=== PATIENT | female | born 1980 | race African-American/Black ===

== ENCOUNTER 2018-01-23 10:13 | Inpatient (IN) | payer OTHER ==
[2018-01-23 10:40] VITALS: BMI 30.1
[2018-01-23] MEDS ORDERED: FLU VACCINE QUAD 60 MCG/0.5 ML (MDV 18-19) IM ONE (11:19)
[2018-01-23] MEDS ORDERED: PNEUMOC 13-VAL CONJ-DIP CRM/PF 0.5 ML DISP.SYRIN IM ONE (11:32)
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
[2018-01-23] MEDS ORDERED: P-EPHED 60MG/TRIPROLIDI 2.5MG TABLET PO PRN (12:24)
[2018-01-23] MEDS ORDERED: MENTHOL/PHENOL 1 EACH UD MM PRN (12:24)
[2018-01-23] MEDS ORDERED: LOPERAMIDE HCL 2 MG CAPSULE PO PRN (12:24)
[2018-01-23] MEDS ORDERED: guaiFENesin/D-METHORPHAN HB 10 ML UNIT-DOSE CUPS PO PRN (12:24)
[2018-01-23] MEDS ORDERED: MAGNESIUM HYDROX 2400MG/30ML ORAL SUSPENSION 30 ML CUP PO PRN (12:24)
[2018-01-23] MEDS ORDERED: IBUPROFEN 400 MG TABLET (FP) PO PRN (12:24)
[2018-01-23] MEDS ORDERED: MAGNESIUM CITRATE 300 ML BOTTLE PO PRN (12:24)
[2018-01-23] MEDS ORDERED: MAG HYDROX/AL HYDROX/SIMETH 30 ML UNIT-DOSE CUP PO PRN (12:24)
[2018-01-23] MEDS ORDERED: METHADONE HCL 10 MG TABLET (FOR DETOX USE ONLY) PO ONE ×2 (12:45→23:00)
[2018-01-23] MEDS: diazePAM 5 MG TABLET PO PRN ×3 (13:31→22:45)
[2018-01-23] MEDS: NICOTINE 21 MG/24 HOURS TOPICAL PATCH TD SCH (13:33)
[2018-01-23] MEDS: CYCLOBENZAPRINE HCL 10 MG TABLET (FP) PO PRN ×2 (14:46→22:26)
[2018-01-23 18:04] LABS: URINE APPEARANCE CLEAR; URINE BILIRUBIN NEGATIVE (<2.0 mg/dL); URINE COLOR LTYELLOW; URINE GLUCOSE (UA) NEGATIVE (NEGATIVE); URINE KETONE NEGATIVE (NEGATIVE); URINE LEUK ESTERASE NEGATIVE (NEGATIVE); URINE NITRITE NEGATIVE (NEGATIVE); URINE PROTEIN NEGATIVE (NEGATIVE); URINE UROBILINOGEN NEGATIVE mg/dL (0.2-1.0)
--- NOTE | 2018-01-23 18:09 | EKG ---
Test Reason : Blood Pressure : / mmHG Vent. Rate : 071 BPM Atrial Rate : 071 BPM P-R Int : 156 ms QRS Dur : 080 ms QT Int : 384 ms P-R-T Axes : 057 045 036 degrees QTc Int : 417 ms NORMAL SINUS RHYTHM NORMAL ECG WHEN COMPARED WITH ECG OF 13-JUL-1999 04:43, NONSPECIFIC T WAVE ABNORMALITY NO LONGER EVIDENT IN ANTERIOR LEADS Confirmed by SAI CEJA MD ([id number]) on 01/23/2018 6:09:25 PM Referred By: Confirmed By:SAI CEJA MD
[2018-01-23] MEDS ORDERED: MELATONIN 5 MG TABLETS PO PRN (22:00)
[2018-01-23] MEDS: cloNIDine HCL 0.1 MG TABLET PO SCH (22:26)
[2018-01-23] MEDS: THIAMINE HCL 100 MG TABLET (FP) PO SCH (22:27)
[2018-01-23] MEDS: hydrOXYzine PAMOATE 25 MG CAPSULE (FP) PO PRN (22:27)
[2018-01-24] MEDS: ALBUTEROL SO4 8 GM HFA INHALER IH PRN ×2 (05:34→22:39)
[2018-01-24] MEDS: NICOTINE POLACRILEX 2 MG GUM BUC PRN ×2 (06:03→11:45)
[2018-01-24] MEDS ORDERED: METHADONE HCL 10 MG TABLET (FOR DETOX USE ONLY) PO ONE (10:00)
[2018-01-24] MEDS: cloNIDine HCL 0.1 MG TABLET PO SCH ×2 (10:02→22:37)
[2018-01-24] MEDS: diazePAM 5 MG TABLET PO PRN ×3 (10:03→22:38)
[2018-01-24] MEDS: PRENATAL VITAMINS W/ FOLIC ACID TABLET (FP) PO SCH (10:03)
[2018-01-24] MEDS: NICOTINE 21 MG/24 HOURS TOPICAL PATCH TD SCH (10:03)
[2018-01-24 10:38] LABS: HEMATOCRIT 35.9 % (32.4-45.2); HEMOGLOBIN 11.2 GM/dL (10.7-15.3); MCH 25.8 pg (25.7-33.7); MCHC 31.1 g/dl (32.0-36.0); MEAN CELL VOLUME 83.1 fl (80-96); PLATELET COUNT 318 K/MM3 (134-434); RBC 4.32 M/mm3 (3.60-5.2); RDW 17.2 % (11.6-15.6); WHITE BLOOD COUNT 3.8 K/mm3 (4.0-10.0)
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
[2018-01-24 11:18] LABS: ALBUMIN 3.6 g/dl (3.4-5.0); ALK PHOS 66 U/L (45-117); ANION GAP 8 MMOL/L (8-16); BILIRUBIN,TOTAL 0.2 mg/dL (0.2-1); BLOOD UREA NITROGEN 18 mg/dL (7-18); CHLORIDE 104 mmol/L (98-107); CO2 27 mmol/L (21-32); CREATININE 0.8 mg/dL (0.55-1.3); GLUCOSE,RANDOM 99 mg/dL (74-106); POTASSIUM 4.7 mmol/L (3.5-5.1); SGOT/AST 11 U/L (15-37); SGPT/ALT 18 U/L (13-61); SODIUM 139 mmol/L (136-145); TOT PROT 7.1 g/dl (6.4-8.2)
[2018-01-24] MEDS ORDERED: FLU VACCINE QUAD 60 MCG/0.5 ML (MDV 18-19) IM ONE (12:00)
[2018-01-24] MEDS ORDERED: PNEUMOCOCCAL 23 VACCINE 0.5 ML VIAL IM ONE (12:00)
[2018-01-24] MEDS: ACETAMINOPHEN 325 MG TABLET (FP) PO PRN (12:32)
--- NOTE | 2018-01-24 13:59 | PN ---
[facility] COWS - Scale Resting Pulse: 0= [place] 80 or Below Sweatin= Chills/Flushing Restless Observation: 1= Difficult to Sit Still Pupil Size: 1= Pupils >than Normal Bone or Joint Aches: 2= Severe Diffuse Aches Runny Nose/ Eye Tearin= Runny Nose/Eyes GI Upset > 30mins: 2= Nausea/Diarrhea Tremor Observation of Outstretched Hands: 2= Slight Tremor Visible Yawning Observation: 1= 1-2x During Session Anxiety or Irritability: 2=Irritable/Anxious Goose Flesh Skin: 0=Smooth Skin COWS Score: 14 S Progress Note (SOAP) Subjective: sweat joints pain trouble sleep at night Objective: 01/24/18 13:54 Vital Signs Temperature 99.3 F 01/24/18 13:15 Pulse Rate 82 01/24/18 13:15 Respiratory Rate 18 01/24/18 13:15 Blood Pressure 105/62 01/24/18 13:15 O2 Sat by Pulse Oximetry (%) Laboratory Last Values WBC 3.8 K/mm3 (4.0-10.0) L 01/24/18 06:00 RBC 4.32 M/mm3 (3.60-5.2) 01/24/18 06:00 Hgb 11.2 GM/dL (10.7-15.3) 01/24/18 06:00 Hct 35.9 % (32.4-45.2) 01/24/18 06:00 MCV 83.1 fl (80-96) 01/24/18 06:00 MCH 25.8 pg (25.7-33.7) 01/24/18 06:00 MCHC 31.1 g/dl (32.0-36.0) L 01/24/18 06:00 RDW 17.2 % (11.6-15.6) H 01/24/18 06:00 Plt Count 318 K/MM3 (134-434) 01/24/18 06:00 MPV 12.0 fl (7.5-11.1) H 01/24/18 06:00 Sodium 139 mmol/L (136-145) 01/24/18 06:00 Potassium 4.7 mmol/L (3.5-5.1) 01/24/18 06:00 Chloride 104 mmol/L (98-107) 01/24/18 06:00 Carbon Dioxide 27 mmol/L (21-32) 01/24/18 06:00 Anion Gap 8 MMOL/L (8-16) 01/24/18 06:00 BUN 18 mg/dL (7-18) 01/24/18 06:00 Creatinine 0.8 mg/dL (0.55-1.3) 01/24/18 06:00 Creat Clearance w eGFR > 60 (>60) 01/24/18 06:00 Random Glucose 99 mg/dL (74-106) 01/24/18 06:00 Calcium 10.0 mg/dL (8.5-10.1) 01/24/18 06:00 Total Bilirubin 0.2 mg/dL (0.2-1) 01/24/18 06:00 AST 11 U/L (15-37) L 01/24/18 06:00 ALT 18 U/L (13-61) 01/24/18 06:00 Alkaline Phosphatase 66 U/L (45-117) 01/24/18 06:00 Total Protein 7.1 g/dl (6.4-8.2) 01/24/18 06:00 Albumin 3.6 g/dl (3.4-5.0) 01/24/18 06:00 Urine Color Ltyellow 01/23/18 12:08 Urine Appearance Clear 01/23/18 12:08 Urine pH 6.0 (5.0-8.0) 01/23/18 12:08 Ur Specific [place] 1.021 (1.001-1.035) 01/23/18 12:08 Urine Protein Negative (NEGATIVE) 01/23/18 12:08 Urine Glucose (UA) Negative (NEGATIVE) 01/23/18 12:08 Urine Ketones Negative (NEGATIVE) 01/23/18 12:08 Urine Blood Negative (NEGATIVE) 01/23/18 12:08 Urine Nitrite Negative (NEGATIVE) 01/23/18 12:08 Urine Bilirubin Negative (<2.0 mg/dL) 01/23/18 12:08 Urine Urobilinogen Negative mg/dL (0.2-1.0) 01/23/18 12:08 Ur Leukocyte Esterase Negative (NEGATIVE) 01/23/18 12:08 RPR Titer Nonreactive (NONREACTIVE) 01/24/18 06:00 lab noted Assessment: 01/24/18 13:59 withdrawal sx Plan: continue detox
[2018-01-24] MEDS ORDERED: ALBUTEROL SO4 0.083% IH SOL 2.5 MG/3 ML VIAL.NEB. NEB PRN (14:26)
[2018-01-24] MEDS ORDERED: COLLOIDAL OATMEAL 1 BAR EACH TP PRN (14:26)
[2018-01-24] MEDS: hydrOXYzine PAMOATE 25 MG CAPSULE (FP) PO PRN (14:46)
[2018-01-24] MEDS: CYCLOBENZAPRINE HCL 10 MG TABLET (FP) PO PRN ×2 (17:40→22:38)
[2018-01-24] MEDS: ZOLPIDEM TARTRATE 10 MG TABLET (PARK CARE ONLY) PO PRN (22:37)
[2018-01-24] MEDS: BUDESONIDE/FORMETEROL FUMARATE 80/4.5 mcg INHALER IH SCH (22:38)
[2018-01-24] MEDS: THIAMINE HCL 100 MG TABLET (FP) PO SCH (22:38)
[2018-01-25] MEDS: diazePAM 5 MG TABLET PO PRN ×5 (02:52→22:12)
[2018-01-25] MEDS: ACETAMINOPHEN 325 MG TABLET (FP) PO PRN (05:25)
[2018-01-25] MEDS: NICOTINE POLACRILEX 2 MG GUM BUC PRN ×4 (07:08→22:30)
[2018-01-25] MEDS: CYCLOBENZAPRINE HCL 10 MG TABLET (FP) PO PRN ×2 (07:10→22:12)
[2018-01-25] MEDS: hydrOXYzine PAMOATE 25 MG CAPSULE (FP) PO PRN (07:11)
[2018-01-25] MEDS ORDERED: METHADONE HCL 5 MG TABLET (FOR DETOX USE ONLY) PO ONE (10:00)
[2018-01-25] MEDS: cloNIDine HCL 0.1 MG TABLET PO SCH ×2 (10:33→22:12)
[2018-01-25] MEDS: NICOTINE 21 MG/24 HOURS TOPICAL PATCH TD SCH (10:33)
[2018-01-25] MEDS: BUDESONIDE/FORMETEROL FUMARATE 80/4.5 mcg INHALER IH SCH ×2 (10:33→22:12)
[2018-01-25] MEDS: PRENATAL VITAMINS W/ FOLIC ACID TABLET (FP) PO SCH (10:33)
--- NOTE | 2018-01-25 17:16 | PN ---
[facility] Progress Note Note: Psychiatric nurse practitioner note: Pt. reports difficulty sleeping. She accepted ambien 10mg with minimal effect. Pt. educated on the properties, benefits, and side effects of trazodone. Pt. agreeable to accepting trazodone 50mg. Will order trazodone 50mg for insomina. Verbal consent given.
--- NOTE | 2018-01-25 18:28 | PN ---
BHS COWS - Scale Resting Pulse: 1= [place] 81-100 Sweatin= Chills/Flushing Restless Observation: 1= Difficult to Sit Still Pupil Size: 1= Pupils >than Normal Bone or Joint Aches: 1= Mild Discomfort Runny Nose/ Eye Tearin= Nasal Congestion GI Upset > 30mins: 1= Stomach Cramp Tremor Observation of Outstretched Hands: 2= Slight Tremor Visible Yawning Observation: 1= 1-2x During Session Anxiety or Irritability: 2=Irritable/Anxious Goose Flesh Skin: 0=Smooth Skin COWS Score: 12 BHS Progress Note (SOAP) Subjective: sweat tremor gi distress muscle aches Objective: 01/25/18 18:27 Vital Signs Temperature 97.9 F 01/25/18 17:33 Pulse Rate 83 01/25/18 17:33 Respiratory Rate 18 01/25/18 17:33 Blood Pressure 114/68 01/25/18 17:33 O2 Sat by Pulse Oximetry (%) Laboratory Last Values WBC 3.8 K/mm3 (4.0-10.0) L 01/24/18 06:00 RBC 4.32 M/mm3 (3.60-5.2) 01/24/18 06:00 Hgb 11.2 GM/dL (10.7-15.3) 01/24/18 06:00 Hct 35.9 % (32.4-45.2) 01/24/18 06:00 MCV 83.1 fl (80-96) 01/24/18 06:00 MCH 25.8 pg (25.7-33.7) 01/24/18 06:00 MCHC 31.1 g/dl (32.0-36.0) L 01/24/18 06:00 RDW 17.2 % (11.6-15.6) H 01/24/18 06:00 Plt Count 318 K/MM3 (134-434) 01/24/18 06:00 MPV 12.0 fl (7.5-11.1) H 01/24/18 06:00 Sodium 139 mmol/L (136-145) 01/24/18 06:00 Potassium 4.7 mmol/L (3.5-5.1) 01/24/18 06:00 Chloride 104 mmol/L (98-107) 01/24/18 06:00 Carbon Dioxide 27 mmol/L (21-32) 01/24/18 06:00 Anion Gap 8 MMOL/L (8-16) 01/24/18 06:00 BUN 18 mg/dL (7-18) 01/24/18 06:00 Creatinine 0.8 mg/dL (0.55-1.3) 01/24/18 06:00 Creat Clearance w eGFR > 60 (>60) 01/24/18 06:00 Random Glucose 99 mg/dL (74-106) 01/24/18 06:00 Calcium 10.0 mg/dL (8.5-10.1) 01/24/18 06:00 Total Bilirubin 0.2 mg/dL (0.2-1) 01/24/18 06:00 AST 11 U/L (15-37) L 01/24/18 06:00 ALT 18 U/L (13-61) 01/24/18 06:00 Alkaline Phosphatase 66 U/L (45-117) 01/24/18 06:00 Total Protein 7.1 g/dl (6.4-8.2) 01/24/18 06:00 Albumin 3.6 g/dl (3.4-5.0) 01/24/18 06:00 Urine Color Ltyellow 01/23/18 12:08 Urine Appearance Clear 01/23/18 12:08 Urine pH 6.0 (5.0-8.0) 01/23/18 12:08 Ur Specific [place] 1.021 (1.001-1.035) 01/23/18 12:08 Urine Protein Negative (NEGATIVE) 01/23/18 12:08 Urine Glucose (UA) Negative (NEGATIVE) 01/23/18 12:08 Urine Ketones Negative (NEGATIVE) 01/23/18 12:08 Urine Blood Negative (NEGATIVE) 01/23/18 12:08 Urine Nitrite Negative (NEGATIVE) 01/23/18 12:08 Urine Bilirubin Negative (<2.0 mg/dL) 01/23/18 12:08 Urine Urobilinogen Negative mg/dL (0.2-1.0) 01/23/18 12:08 Ur Leukocyte Esterase Negative (NEGATIVE) 01/23/18 12:08 RPR Titer Nonreactive (NONREACTIVE) 01/24/18 06:00 lab noted Assessment: 01/25/18 18:27 withdrawal sx Plan: continue detox
[2018-01-25] MEDS ORDERED: BACLOFEN 10 MG TABLET (FP) PO SCH (22:00)
[2018-01-25] MEDS ORDERED: traZODone HCL 50 MG TABLET (FP) PO SCH (22:00)
[2018-01-25] MEDS: THIAMINE HCL 100 MG TABLET (FP) PO SCH (22:12)
[2018-01-25] MEDS: ZOLPIDEM TARTRATE 10 MG TABLET (PARK CARE ONLY) PO PRN (22:14)
[2018-01-25] MEDS: ALBUTEROL SO4 8 GM HFA INHALER IH PRN (22:14)
[2018-01-26] MEDS: diazePAM 5 MG TABLET PO PRN ×3 (03:24→12:09)
[2018-01-26] MEDS ORDERED: METHADONE HCL 5 MG TABLET (FOR DETOX USE ONLY) PO ONE (10:00)
[2018-01-26] MEDS: CYCLOBENZAPRINE HCL 10 MG TABLET (FP) PO PRN (10:06)
[2018-01-26] MEDS: cloNIDine HCL 0.1 MG TABLET PO SCH ×2 (10:06→22:10)
[2018-01-26] MEDS: NICOTINE 21 MG/24 HOURS TOPICAL PATCH TD SCH (10:08)
[2018-01-26] MEDS: PRENATAL VITAMINS W/ FOLIC ACID TABLET (FP) PO SCH (10:09)
[2018-01-26] MEDS: BUDESONIDE/FORMETEROL FUMARATE 80/4.5 mcg INHALER IH SCH ×2 (10:10→22:10)
[2018-01-26] MEDS: PANTOPRAZOLE 20 MG TABLET (FP) PO SCH (10:11)
--- NOTE | 2018-01-26 11:21 | PN ---
S Progress Note Note: c/o insomnia, midepigastric pain, anxious Vital Signs Temperature 99.3 F 01/26/18 09:14 Pulse Rate 94 H 01/26/18 09:14 Respiratory Rate 18 01/26/18 09:14 Blood Pressure 113/56 L 01/26/18 09:14 O2 Sat by Pulse Oximetry (%) Laboratory Last Values WBC 3.8 K/mm3 (4.0-10.0) L 01/24/18 06:00 RBC 4.32 M/mm3 (3.60-5.2) 01/24/18 06:00 Hgb 11.2 GM/dL (10.7-15.3) 01/24/18 06:00 Hct 35.9 % (32.4-45.2) 01/24/18 06:00 MCV 83.1 fl (80-96) 01/24/18 06:00 MCH 25.8 pg (25.7-33.7) 01/24/18 06:00 MCHC 31.1 g/dl (32.0-36.0) L 01/24/18 06:00 RDW 17.2 % (11.6-15.6) H 01/24/18 06:00 Plt Count 318 K/MM3 (134-434) 01/24/18 06:00 MPV 12.0 fl (7.5-11.1) H 01/24/18 06:00 Sodium 139 mmol/L (136-145) 01/24/18 06:00 Potassium 4.7 mmol/L (3.5-5.1) 01/24/18 06:00 Chloride 104 mmol/L (98-107) 01/24/18 06:00 Carbon Dioxide 27 mmol/L (21-32) 01/24/18 06:00 Anion Gap 8 MMOL/L (8-16) 01/24/18 06:00 BUN 18 mg/dL (7-18) 01/24/18 06:00 Creatinine 0.8 mg/dL (0.55-1.3) 01/24/18 06:00 Creat Clearance w eGFR > 60 (>60) 01/24/18 06:00 Random Glucose 99 mg/dL (74-106) 01/24/18 06:00 Calcium 10.0 mg/dL (8.5-10.1) 01/24/18 06:00 Total Bilirubin 0.2 mg/dL (0.2-1) 01/24/18 06:00 AST 11 U/L (15-37) L 01/24/18 06:00 ALT 18 U/L (13-61) 01/24/18 06:00 Alkaline Phosphatase 66 U/L (45-117) 01/24/18 06:00 Total Protein 7.1 g/dl (6.4-8.2) 01/24/18 06:00 Albumin 3.6 g/dl (3.4-5.0) 01/24/18 06:00 Urine Color Ltyellow 01/23/18 12:08 Urine Appearance Clear 01/23/18 12:08 Urine pH 6.0 (5.0-8.0) 01/23/18 12:08 Ur Specific [place] 1.021 (1.001-1.035) 01/23/18 12:08 Urine Protein Negative (NEGATIVE) 01/23/18 12:08 Urine Glucose (UA) Negative (NEGATIVE) 01/23/18 12:08 Urine Ketones Negative (NEGATIVE) 01/23/18 12:08 Urine Blood Negative (NEGATIVE) 01/23/18 12:08 Urine Nitrite Negative (NEGATIVE) 01/23/18 12:08 Urine Bilirubin Negative (<2.0 mg/dL) 01/23/18 12:08 Urine Urobilinogen Negative mg/dL (0.2-1.0) 01/23/18 12:08 Ur Leukocyte Esterase Negative (NEGATIVE) 01/23/18 12:08 RPR Titer Nonreactive (NONREACTIVE) 01/24/18 06:00 Aox3 no distress no adventitious breath sounds BS x4 , non-tender non-distended full ROM, ambulating independently in unit withdrawal sx reflux Plan: Psych consult re: insomnia increase po fluids protonix qd continue to monitor
[2018-01-26] MEDS: hydrOXYzine PAMOATE 25 MG CAPSULE (FP) PO PRN ×3 (11:30→20:00)
[2018-01-26] MEDS: NICOTINE POLACRILEX 2 MG GUM BUC PRN ×2 (13:43→23:17)
--- NOTE | 2018-01-26 16:27 | PN ---
Psychiatric Progress Note Vital Signs: Vital Signs Period Temp Pulse Resp BP Sys/Chan Pulse Ox Last 24 Hr 97.2 F-99.3 F 70-94 16-18 113-128/56-79 Date of Session: 01/26/18 Chief Complaint:: "I havent been sleeping." HPI: Patient admitted to for alcohol, opiate, and cocaine. ROS: Asthma Current Medications: Active Medications Generic Name Dose Route Start Last Admin Trade Name Freq PRN Reason Stop Dose Admin Acetaminophen 650 mg 01/23/18 12:24 01/25/18 05:25 Tylenol - PO 650 mg Q4H PRN Administration FEVER Al Hydroxide/Mg Hydroxide 30 ml 01/23/18 12:24 Mylanta Oral Suspension - PO Q6H PRN DYSPEPSIA Albuterol Sulfate 2 puff 01/24/18 00:00 01/25/18 22:14 Ventolin Hfa Inhaler - IH 2 puff Q4H PRN Administration SHORT OF BREATH/WHEEZING Albuterol Sulfate 1 amp 01/24/18 14:26 Ventolin 0.083% Nebulizer Soln - NEB Q6H PRN SHORT OF BREATH/WHEEZING Budesonide/Formoterol Fumarate 2 puff 01/24/18 22:00 01/26/18 10:10 Symbicort 80/4.5mcg - IH 2 puff BID ZEN Administration Clonidine 0.1 mg 01/23/18 22:00 01/26/18 10:06 Catapres - PO 0.1 mg BID ZEN Administration Colloidal Oatmeal 1 applic 01/24/18 14:26 01/24/18 22:39 Aveeno Soap - TP 1 applic DAILY PRN Administration HYGEINE Cyclobenzaprine HCl 10 mg 01/23/18 12:26 01/26/18 10:06 Flexeril - PO 10 mg TID PRN Administration MUSCLE SPASMS Eucalyptus/Menthol/Phenol/Sorbitol 1 each 01/23/18 12:24 Cepastat Lozenge - MM Q4H PRN SORE THROAT Guaifenesin 10 ml 01/23/18 12:24 Robitussin Dm - PO Q6H PRN COUGH Hydroxyzine Pamoate 25 mg 01/23/18 12:24 01/26/18 15:31 Vistaril - PO 25 mg Q4H PRN Administration AGITATION Ibuprofen 400 mg 01/23/18 12:24 Motrin - PO Q6H PRN PAIN LEVEL 4-6 Loperamide HCl 4 mg 01/23/18 12:24 Imodium - PO Q6H PRN DIARRHEA Magnesium Citrate 300 ml 01/23/18 12:24 Citroma - PO Q48H PRN CONSTIPATION Magnesium Hydroxide 30 ml 01/23/18 12:24 Milk Of Magnesia - PO DAILY PRN CONSTIPATION Methadone HCl 5 mg 01/28/18 06:00 Dolophine - PO 01/28/18 06:01 ONCE@0600 ONE Methadone HCl 10 mg 01/27/18 10:00 Dolophine - PO 01/27/18 10:01 ONCE ONE Nicotine 21 mg 01/23/18 12:45 01/26/18 10:08 Nicoderm Patch - TD 21 mg DAILY ZEN Administration Nicotine Polacrilex 2 mg 01/23/18 12:24 01/26/18 13:43 Nicorette Gum - BUC 2 mg Q2H PRN Administration NICOTINE REPLACEMENT RX Pantoprazole Sodium 20 mg 01/26/18 10:00 01/26/18 10:11 Protonix - PO 20 mg DAILY ZEN Administration Multivit/Folic Acid/Iron 1 tab 01/24/18 10:00 01/26/18 10:09 Vitamins (Sjr) - PO 1 tab DAILY ZEN Administration Pseudoephedrine/Triprolidine 1 combo 01/23/18 12:24 Actifed - PO TID PRN NASAL CONGESTION Thiamine HCl 100 mg 01/23/18 22:00 01/25/18 22:12 Vitamin B1 - PO 100 mg HS ZEN Administration Trazodone HCl 50 mg 01/25/18 22:00 01/25/18 22:12 Desyrel - PO 50 mg HS ZEN Administration Zolpidem Tartrate 10 mg 01/24/18 22:00 01/25/18 22:14 Ambien - PO 01/27/18 21:59 10 mg HS PRN Administration INSOMNIA Medication(s) Change(s): Yes. Will increase trazodone to 100mg. Current Side Effect: No Lab tests ordered: No Lab tests reviewed: Yes Provider note:: Chart reviewed. Pt. c/o poor sleep. She accepted trazodone 50mg + Ambien 10mg with minimal effect. Trazodone to be increased to 100mg. Sleep hygiene discussed. Benefits and side effects discussed. Verbal consent given. Trazodone 100mg ordered. Total face to face time:: 25 Mental Status Exam - Mental Status Exam Alert and Oriented to: Time, Place, Person Cognitive Function: Good Patient Appearance: Well Groomed Mood: Euthymic Affect: Mood Congruent Patient Behavior: Appropriate, Cooperative Speech Pattern: Clear, Appropriate Voice Loudness: Normal Thought Process: Intact, Goal Oriented Thought Disorder: Not Present Hallucinations: Denies Suicidal Ideation: Denies Homicidal Ideation: Denies Insight/Judgement: Poor Sleep: Poorly Appetite: Fair Muscle strength/Tone: Normal Gait/Station: Normal Psychiatric Treatment Plan - Problem List (1) Alcohol dependence Current Visit: Yes (2) Cocaine dependence Current Visit: Yes Qualifiers: Substance use status: uncomplicated Qualified Code(s): F14.20 - Cocaine dependence, uncomplicated (3) Opioid dependence with withdrawal Current Visit: Yes (4) Substance induced mood disorder Current Visit: No (5) Substance-induced sleep disorder Current Visit: Yes
[2018-01-26] MEDS: traZODone HCL 50 MG TABLET (FP) PO SCH (22:10)
[2018-01-26] MEDS: ZOLPIDEM TARTRATE 10 MG TABLET (PARK CARE ONLY) PO PRN (22:10)
[2018-01-26] MEDS: THIAMINE HCL 100 MG TABLET (FP) PO SCH (22:10)
[2018-01-27] MEDS: hydrOXYzine PAMOATE 25 MG CAPSULE (FP) PO PRN ×4 (02:21→19:14)
[2018-01-27] MEDS ORDERED: METHADONE HCL 10 MG TABLET (FOR DETOX USE ONLY) PO ONE (10:00)
[2018-01-27] MEDS: BUDESONIDE/FORMETEROL FUMARATE 80/4.5 mcg INHALER IH SCH ×2 (10:40→22:19)
[2018-01-27] MEDS: PANTOPRAZOLE 20 MG TABLET (FP) PO SCH (10:40)
[2018-01-27] MEDS: cloNIDine HCL 0.1 MG TABLET PO SCH ×2 (10:40→22:19)
[2018-01-27] MEDS: NICOTINE 21 MG/24 HOURS TOPICAL PATCH TD SCH (10:41)
[2018-01-27] MEDS: PRENATAL VITAMINS W/ FOLIC ACID TABLET (FP) PO SCH (10:41)
--- NOTE | 2018-01-27 11:59 | PN ---
[facility] Progress Note (SOAP) Subjective: sweats Objective: 01/27/18 11:59 Vital Signs Temperature 98.2 F 01/27/18 09:34 Pulse Rate 82 01/27/18 09:34 Respiratory Rate 18 01/27/18 09:34 Blood Pressure 109/76 01/27/18 09:34 O2 Sat by Pulse Oximetry (%) aaox3 ambulating no acute distress Assessment: 01/27/18 11:59 mild withdrawal sx Plan: continue detox d/c in am
[2018-01-27] MEDS: THIAMINE HCL 100 MG TABLET (FP) PO SCH (22:19)
[2018-01-27] MEDS: traZODone HCL 50 MG TABLET (FP) PO SCH (22:19)
[2018-01-27] MEDS ORDERED: ZOLPIDEM TARTRATE 5 MG TABLET PO ONE (22:30)
[2018-01-27] MEDS: ACETAMINOPHEN 325 MG TABLET (FP) PO PRN (22:51)
[2018-01-28] MEDS: hydrOXYzine PAMOATE 25 MG CAPSULE (FP) PO PRN ×2 (02:18→06:00)
[2018-01-28] MEDS ORDERED: METHADONE HCL 5 MG TABLET (FOR DETOX USE ONLY) PO ONE (06:00)
[2018-01-28] MEDS: ALBUTEROL SO4 8 GM HFA INHALER IH PRN (06:01)
[2018-01-28 09:09] VITALS: BP 113/66; PULSE 81; TEMP 98.1
[2018-01-28] MEDS: PANTOPRAZOLE 20 MG TABLET (FP) PO SCH (10:56)
[2018-01-28] MEDS: PRENATAL VITAMINS W/ FOLIC ACID TABLET (FP) PO SCH (11:00)
[2018-01-28] MEDS: NICOTINE 21 MG/24 HOURS TOPICAL PATCH TD SCH (11:01)
[2018-01-28] MEDS: cloNIDine HCL 0.1 MG TABLET PO SCH (11:01)
[2018-01-28] MEDS: BUDESONIDE/FORMETEROL FUMARATE 80/4.5 mcg INHALER IH SCH (11:02)
--- NOTE | 2018-01-28 11:05 | DS ---
[facility] Detox Discharge Summary Admission Date: 01/23/18 Discharge Date: 01/28/18 - History Present History: Alcohol Dependence, Opioid Dependence Pertinent Past History: Vital Signs Temperature 98.1 F 01/28/18 09:08 Pulse Rate 81 01/28/18 09:08 Respiratory Rate 16 01/28/18 09:08 Blood Pressure 113/66 01/28/18 09:08 O2 Sat by Pulse Oximetry (%) Laboratory Last Values WBC 3.8 K/mm3 (4.0-10.0) L 01/24/18 06:00 RBC 4.32 M/mm3 (3.60-5.2) 01/24/18 06:00 Hgb 11.2 GM/dL (10.7-15.3) 01/24/18 06:00 Hct 35.9 % (32.4-45.2) 01/24/18 06:00 MCV 83.1 fl (80-96) 01/24/18 06:00 MCH 25.8 pg (25.7-33.7) 01/24/18 06:00 MCHC 31.1 g/dl (32.0-36.0) L 01/24/18 06:00 RDW 17.2 % (11.6-15.6) H 01/24/18 06:00 Plt Count 318 K/MM3 (134-434) 01/24/18 06:00 MPV 12.0 fl (7.5-11.1) H 01/24/18 06:00 Sodium 139 mmol/L (136-145) 01/24/18 06:00 Potassium 4.7 mmol/L (3.5-5.1) 01/24/18 06:00 Chloride 104 mmol/L (98-107) 01/24/18 06:00 Carbon Dioxide 27 mmol/L (21-32) 01/24/18 06:00 Anion Gap 8 MMOL/L (8-16) 01/24/18 06:00 BUN 18 mg/dL (7-18) 01/24/18 06:00 Creatinine 0.8 mg/dL (0.55-1.3) 01/24/18 06:00 Creat Clearance w eGFR > 60 (>60) 01/24/18 06:00 Random Glucose 99 mg/dL (74-106) 01/24/18 06:00 Calcium 10.0 mg/dL (8.5-10.1) 01/24/18 06:00 Total Bilirubin 0.2 mg/dL (0.2-1) 01/24/18 06:00 AST 11 U/L (15-37) L 01/24/18 06:00 ALT 18 U/L (13-61) 01/24/18 06:00 Alkaline Phosphatase 66 U/L (45-117) 01/24/18 06:00 Total Protein 7.1 g/dl (6.4-8.2) 01/24/18 06:00 Albumin 3.6 g/dl (3.4-5.0) 01/24/18 06:00 Urine Color Ltyellow 01/23/18 12:08 Urine Appearance Clear 01/23/18 12:08 Urine pH 6.0 (5.0-8.0) 01/23/18 12:08 Ur Specific [place] 1.021 (1.001-1.035) 01/23/18 12:08 Urine Protein Negative (NEGATIVE) 01/23/18 12:08 Urine Glucose (UA) Negative (NEGATIVE) 01/23/18 12:08 Urine Ketones Negative (NEGATIVE) 01/23/18 12:08 Urine Blood Negative (NEGATIVE) 01/23/18 12:08 Urine Nitrite Negative (NEGATIVE) 01/23/18 12:08 Urine Bilirubin Negative (<2.0 mg/dL) 01/23/18 12:08 Urine Urobilinogen Negative mg/dL (0.2-1.0) 01/23/18 12:08 Ur Leukocyte Esterase Negative (NEGATIVE) 01/23/18 12:08 RPR Titer Nonreactive (NONREACTIVE) 01/24/18 06:00 - Physical Exam Results Vital Signs: Vital Signs Temperature 98.1 F 01/28/18 09:08 Pulse Rate 81 01/28/18 09:08 Respiratory Rate 16 01/28/18 09:08 Blood Pressure 113/66 01/28/18 09:08 O2 Sat by Pulse Oximetry (%) - Treatment Hospital Course: Detox Protocol Followed, Detoxed Safely, Responded well, Discharged Condition Good, Rehab Referral Accepted Patient has Accepted a Rehab Referral to: out patient programs and MMTP at [facility] - Medication Discharge Medications: Ambulatory Orders Ibuprofen/Diphenhydramine HCl [Advil Pm Liqui-Gels] 2 each PO HS 01/23/18 Budesonide/Formeterol Fumarate [SYMBICORT 80/4.5mcg -] 1 inh PO BID 01/24/18 traZODone HCL [Trazodone HCl] 100 mg PO HS #30 tablet 01/27/18 - Diagnosis (1) Asthma Status: Acute Qualifiers: Asthma severity: unspecified severity Asthma persistence: unspecified Asthma complication type: unspecified Qualified Code(s): J45.909 - Unspecified asthma, uncomplicated (2) Cocaine dependence Status: Suspected Qualifiers: Substance use status: uncomplicated Qualified Code(s): F14.20 - Cocaine dependence, uncomplicated (3) Insomnia Status: Acute (4) Nicotine dependence Status: Acute (5) Opioid dependence with withdrawal Status: Acute - AMA Did Patient Leave Against Medical Advice: No
--- NOTE | 2018-01-28 11:06 | PN ---
[facility] Progress Note Note: Patient c/o generalized abdominal pain x 3 days worse today, and worse on the RUQ. Reports pain 10/10. Reports nocturia and nausea. Denies hematuria or vaginal discharge. LMP 12/25/17. V/S BP 129/52, P99, RR20, T98.1 Aox3, restless s1, s2, no JVD lungs clear throughout BS x4, non-distended, +RUQ tenderness on palpation skin intact, no erythema or edema abdominal pain Plan: Patient sent to [facility] for further evaluation, transported via [facility], endorsed to Dr. Munoz.
== END 2018-01-28 11:56 | disposition short-term general hospital (02) | DRG 773 ==
LOC: YASAS 10:13 → Y6N 12:09
PROC: HZ2ZZZZ Detoxification Services for Substance Abuse Treatment (ICD-10-PCS; principal; 2018-01-23)
DX: F11.23 Opioid dependence with withdrawal (principal); F10.20 Alcohol dependence, uncomplicated; F14.20 Cocaine dependence, uncomplicated; F17.210 Nicotine dependence, cigarettes, uncomplicated; F19.24 Other psychoactive substance dependence with psychoactive substance-induced mood disorder; F19.282 Other psychoactive substance dependence with psychoactive substance-induced sleep disorder; F41.8 Other specified anxiety disorders; J45.909 Unspecified asthma, uncomplicated; G47.00 Insomnia, unspecified; K21.9 Gastro-esophageal reflux disease without esophagitis; R10.9 Unspecified abdominal pain
CPT/HCPCS: 36415; 71045-TC-FY; 80053; 81003; 85027; 86593; 90688; 90732; 93005; 93010; G0008; G0009; J0735

== ENCOUNTER 2018-01-28 12:18 | Emergency (ER) | payer OTHER ==
[2018-01-28 12:53] VITALS: BMI 29.7
[2018-01-28] MEDS ORDERED: KETOROLAC TROMETHAMINE 30 MG/1 ML VIAL ONE (13:36)
[2018-01-28 13:41] LABS: BASO % 0.5 % (0-2.0); HEMATOCRIT 33.7 % (32.4-45.2); HEMOGLOBIN 10.9 GM/dL (10.7-15.3); LYMPH % 25.2 % (8-40); MCH 26.4 pg (25.7-33.7); MCHC 32.3 g/dl (32.0-36.0); MEAN CELL VOLUME 81.7 fl (80-96); MEAN PLT VOLUME 8.9 fl (7.5-11.1); MONO % 12.1 % (3.8-10.2); NEUT % 52.2 % (42.8-82.8); PLATELET COUNT 261 K/MM3 (134-434); RBC 4.12 M/mm3 (3.60-5.2); RDW 17.5 % (11.6-15.6); WHITE BLOOD COUNT 3.1 K/mm3 (4.0-10.0)
[2018-01-28] MEDS ORDERED: SODIUM CHLORIDE 1,000 ML IV STA (13:47)
[2018-01-28] MEDS ORDERED: KETOROLAC TROMETHAMINE 30 MG/1 ML VIAL IVPUSH ONE (13:47)
[2018-01-28 13:50] LABS: ALBUMIN 3.2 g/dl (3.4-5.0); ALK PHOS 63 U/L (45-117); ANION GAP 4 MMOL/L (8-16); BILIRUBIN,TOTAL 0.2 mg/dL (0.2-1); BLOOD UREA NITROGEN 14 mg/dL (7-18); CALCIUM 9.3 mg/dL (8.5-10.1); CHLORIDE 102 mmol/L (98-107); CO2 30 mmol/L (21-32); CREATININE 0.8 mg/dL (0.55-1.3); GLUCOSE,RANDOM 116 mg/dL (74-106); LIPASE 221 U/L (73-393); POTASSIUM 4.8 mmol/L (3.5-5.1); SGOT/AST 27 U/L (15-37); SGPT/ALT 27 U/L (13-61); SODIUM 135 mmol/L (136-145); TOT PROT 6.6 g/dl (6.4-8.2)
--- NOTE | 2018-01-28 13:51 | PDOC ---
History of Present Illness - General Chief Complaint: Pain Stated Complaint: ABD PAIN Time Seen by Provider: 01/28/18 12:37 History Source: Patient - History of Present Illness Timing/Duration: reports: getting worse Quality: reports: sharpness Abdominal Pain Onset Location: reports: RUQ, epigastric Past History - Past Medical History Allergies/Adverse Reactions: Allergies Allergy/AdvReac Type Severity Reaction Status Date / Time No Known Allergies Allergy Verified 01/23/18 11:04 Home Medications: Ambulatory Orders Ibuprofen/Diphenhydramine HCl [Advil Pm Liqui-Gels] 2 each PO HS 01/23/18 Budesonide/Formeterol Fumarate [SYMBICORT 80/4.5mcg -] 1 inh PO BID 01/24/18 traZODone HCL [Trazodone HCl] 100 mg PO HS #30 tablet 01/27/18 Ibuprofen [Motrin -] 800 mg PO Q6H #30 tablet 01/28/18 Anemia: No Asthma: Yes (on albuterol inhaler) Cardiac Disorders: Yes (PATIENT REPORTED HISTORY OF HEART MURMUR AT ) CVA: No COPD: No CHF: No Dementia: No Diabetes: No GI Disorders: No Disorders: No HTN: No Hypercholesterolemia: No Kidney Stones: No Liver Disease: No Seizures: No Thyroid Disease: No - Surgical History Abdominal Surgery: No Appendectomy: No Cardiac Surgery: No Cholecystectomy: No Lung Surgery: No Neurologic Surgery: No Orthopedic Surgery: No - Reproductive History PID: No - Suicide/Smoking/Psychosocial Hx Smoking History: Never smoked Have you smoked in the past 12 months: Yes Number of Cigarettes Smoked Daily: 10 Information on smoking cessation initiated: No 'Breaking Loose' booklet given: 01/23/18 Hx Alcohol Use: No Drug/Substance Use Hx: No Substance Use Type: Alcohol, Cocaine, Heroin Hx Substance Use Treatment: Yes (last 12/17 [facility]) Abd/GI Specific PMHX - Complaint Specific PMHX Hepatitis: No Pancreatitis: No Review of Systems - Review of Systems Constitutional: No: Chills, Fever Respiratory: No: Shortness of Breath Cardiac (ROS): No: Chest Pain ABD/GI: No: Diarrhea, Nausea, Vomiting : No: Dysuria, Flank Pain, Hematuria *Physical Exam - Vital Signs Last Vital Signs Temp Pulse Resp BP Pulse Ox 99.2 F 85 16 117/73 100 01/28/18 12:18 01/28/18 12:18 01/28/18 12:18 01/28/18 12:18 01/28/18 12:18 - Physical Exam General Appearance: Yes: Appropriately Dressed, Moderate Distress HEENT: positive: Normal Voice Neck: positive: Supple Respiratory/Chest: negative: Respiratory Distress Gastrointestinal/Abdominal: positive: Tender (sig ttp to mid upper abd and RUQ, neg murpheys, neg CVA). negative: Distended Integumentary: positive: Dry, Warm Neurologic: positive: Fully Oriented, Alert, Normal Mood/Affect ED Treatment Course - LABORATORY CBC & Chemistry Diagram: 01/28/18 13:20 01/28/18 13:20 - ADDITIONAL ORDERS Additional order review: 01/28/18 13:20 RBC 4.12 MCV 81.7 MCHC 32.3 RDW 17.5 H MPV 8.9 D Neutrophils % 52.2 Lymphocytes % 25.2 Monocytes % 12.1 H Eosinophils % 10.0 H Basophils % 0.5 - RADIOLOGY Radiology Studies Ordered: Category Date Time Status ABDOMEN US -LIMITED [US] Stat Ultrasound 01/28/18 13:47 Ordered Medical Decision Making - Medical Decision Making 01/28/18 13:48 37-year-old female, currently in inpatient detox at [facility] for polysubstance abuse, substance associated mood disorder, sent to ED for evaluation of abdominal pain. Patient reports that she has a history of gallstones and states for the past 3 days she's had severe pain to mid upper abdomen and RUQ that has been constant and getting worse. Denies nausea, vomiting, change in bowel movements, melena, hematochezia, fever or chills. Denies similar pain in the past. Regarding her gallstones, was told to follow up with surgery, but never did per patient See exam Biliary colic vs acute hannah vs pancreatitis vs gastritis/GERD, less likely appy , r/o preg -pain control -labs -US 01/28/18 13:59 Labs unremarkable. UA and US pending 01/28/18 14:56 Ultrasound + for gallstones, no evidence of acute hannah. Patient improved with toradol and currently tolerating po. [facility] who informed me that patient is actually discharged from their facility and given appropriate follow-up and refill of her trazodone. Discharge at this time with over-the- counter pain control and close surgery follow-up. Strict return precautions given to patient *DC/Admit/Observation/Transfer Diagnosis at time of Disposition: Gallstones, Biliary colic - Discharge Dispostion Disposition: HOME Condition at time of disposition: Improved - Prescriptions Prescriptions: Ibuprofen [Motrin -] 800 mg PO Q6H #30 tablet - Referrals Referrals: Ernesto Juarez MD [Staff Physician] - - Patient Instructions Printed Discharge Instructions: DI for Gallstones Additional Instructions: Your ultrasound shows multiple gallstones but no evidence of an acute infection at this time. Your labs were negative. You will need to follow-up closely with surgery for possible elective removal of your gallbladder. Take Motrin or Tylenol as needed for your pain, and return to ER if symptoms worsen - Post Discharge Activity
[2018-01-28 13:52] LABS: URINE APPEARANCE CLEAR; URINE BILIRUBIN NEGATIVE (<2.0 mg/dL); URINE COLOR LTYELLOW; URINE GLUCOSE (UA) NEGATIVE (NEGATIVE); URINE KETONE NEGATIVE (NEGATIVE); URINE LEUK ESTERASE NEGATIVE (NEGATIVE); URINE NITRITE NEGATIVE (NEGATIVE); URINE PROTEIN NEGATIVE (NEGATIVE); URINE UROBILINOGEN NEGATIVE mg/dL (0.2-1.0)
[2018-01-28 13:53] LABS: HCG,QUALITATIVE URINE Negative
[2018-01-28 15:31] VITALS: BP 103/61; PULSE 76; TEMP 98.4
== END 2018-01-28 15:49 | disposition home or self-care (01) ==
LOC: JER 12:18
PROC: 3E0337Z Introduction of Electrolytic and Water Balance Substance into Peripheral Vein, Percutaneous Approach (ICD-10-PCS; principal; 2018-01-28)
PROC: 3E0333Z Introduction of Anti-inflammatory into Peripheral Vein, Percutaneous Approach (ICD-10-PCS; 2018-01-28)
DX: K80.20 Calculus of gallbladder without cholecystitis without obstruction (principal); K80.50 Calculus of bile duct without cholangitis or cholecystitis without obstruction; F11.20 Opioid dependence, uncomplicated; F10.20 Alcohol dependence, uncomplicated; F14.20 Cocaine dependence, uncomplicated; F19.24 Other psychoactive substance dependence with psychoactive substance-induced mood disorder; F19.282 Other psychoactive substance dependence with psychoactive substance-induced sleep disorder
CPT/HCPCS: 36415; 76705-TC; 80053; 81003; 83690; 84703; 85025; 96361; 96374; 99283-25; J7030

== ENCOUNTER 2018-04-09 18:08 | Emergency (ER) | payer OTHER ==
[2018-04-09] MEDS ORDERED: SODIUM CHLORIDE 1,000 ML IV STA ×2 (18:23→20:51)
--- NOTE | 2018-04-09 18:23 | PDOC ---
History of Present Illness - General Chief Complaint: Nausea/Vomiting Stated Complaint: NAUSEA/DIZZINESS/VOMITING Time Seen by Provider: 04/09/18 18:23 - History of Present Illness Initial Comments: 37 year old female with PMH of asthma and recent diagnosis of cholelithiasis presenting with sudden onset epigastric pain with nausea/ vomiting. States that the pain came on suddenly after eating chicken wings, Kinyarwanda fries, and chicken tenders with honey barbeque sauce. States she was told he had to take the gallbladder out electively back in December when she was in our system (US corroborating cholelithiais 01/28/18) but she hasn't had time. She saw a surgeon in the [place] but did not set a date for the hannah. Denies chest pain, fevers, chills, diarrhea, constipation, or other symptoms. 04/09/18 18:34 Past History - Past Medical History Allergies/Adverse Reactions: Allergies Allergy/AdvReac Type Severity Reaction Status Date / Time No Known Allergies Allergy Verified 04/09/18 18:19 Home Medications: Ambulatory Orders traZODone HCL [Trazodone HCl] 100 mg PO HS #30 tablet 01/27/18 Ibuprofen [Motrin -] 800 mg PO Q6H #30 tablet 01/28/18 Budesonide/Formeterol Fumarate [SYMBICORT 80/4.5mcg -] 1 inh PO BID #1 inhaler 01/31/18 hydrOXYzine PAMOATE [Vistaril -] 50 mg PO Q6H PRN #30 capsule 01/31/18 Fluticasone Prop 0.05% Nasal [Flonase -] 1 - 2 spray NS BID #1 spray.pump Ondansetron [Zofran *Odt*] 8 mg SL BID #30 od.tablet 04/10/18 Anemia: No Asthma: Yes (on albuterol inhaler) Cardiac Disorders: Yes (PATIENT REPORTED HISTORY OF HEART MURMUR AT ) CVA: No COPD: No CHF: No Dementia: No Diabetes: No GI Disorders: No Disorders: No HTN: No Hypercholesterolemia: No Kidney Stones: No Liver Disease: No Seizures: No Thyroid Disease: No - Surgical History Abdominal Surgery: No Appendectomy: No Cardiac Surgery: No Cholecystectomy: No Lung Surgery: No Neurologic Surgery: No Orthopedic Surgery: No - Reproductive History PID: No - Suicide/Smoking/Psychosocial Hx Smoking History: Never smoked Have you smoked in the past 12 months: Yes Number of Cigarettes Smoked Daily: 10 'Breaking Loose' booklet given: 01/23/18 Hx Alcohol Use: No Drug/Substance Use Hx: No Substance Use Type: Alcohol, Cocaine, Heroin Hx Substance Use Treatment: Yes (last 12/17 [facility]) Review of Systems - Review of Systems Constitutional: No: Chills, Diaphoresis, Fever HEENTM: No: Blurred Vision, Tearing Respiratory: No: Cough, Orthopnea, Shortness of Breath Cardiac (ROS): No: Chest Pain, Edema, Irregular Heart Rate ABD/GI: Yes: Nausea, Vomiting. No: Constipated, Diarrhea : No: Burning, Dysuria, Discharge Musculoskeletal: No: Back Pain, Joint Pain, Muscle Weakness Integumentary: No: Flushing, Lesions, Lumps Neurological: No: Headache, Numbness, Paresthesia, Tingling Psychiatric: No: Anxiety, Depression Endocrine: No: Flushing, Intolerance to Cold, Increased Urine, Unexplained Weight Gain Hematologic/Lymphatic: No: Anemia, Blood Clots, Easy Bleeding *Physical Exam - Physical Exam General Appearance: Yes: Nourished, Appropriately Dressed. No: Apparent Distress HEENT: positive: EOMI, PATI, Normal ENT Inspection. negative: Normal Voice Neck: positive: Trachea midline, Normal Thyroid, Supple. negative: Tender, Rigid Respiratory/Chest: positive: Lungs Clear, Normal Breath Sounds. negative: Chest Tender, Respiratory Distress, Accessory Muscle Use Cardiovascular: positive: Regular Rhythm, Regular Rate Gastrointestinal/Abdominal: positive: Normal Bowel Sounds, Tender (epigastric tenderness), Flat, Soft Lymphatic: negative: Adenopathy, Tenderness Musculoskeletal: positive: Normal Inspection. negative: Decreased Range of Motion Extremity: positive: Normal Capillary Refill, Normal Inspection, Normal Range of Motion. negative: Tender Integumentary: positive: Normal Color, Dry, Warm Neurologic: positive: Fully Oriented, Alert, Normal Mood/Affect, Normal Response , Motor Strength 5/5 ED Treatment Course - LABORATORY CBC & Chemistry Diagram: 04/09/18 18:46 04/09/18 22:05 Medical Decision Making - Medical Decision Making 37 year old with cholelithiasis presenting with epigastric pain, nause,a and vomiting/ Laabs WNL. not and UA clear. US also not demosntrating cholecystitis but there are choleliths but on obstructing. PAtient much better so will DC with flonase and zofran. 04/09/18 22:02 *DC/Admit/Observation/Transfer Diagnosis at time of Disposition: Cholelithiasis Qualifiers: Cholelithiasis location: gallbladder Cholecystitis presence: without cholecystitis Biliary obstruction: without biliary obstruction Qualified Code(s) : K80.20 - Calculus of gallbladder without cholecystitis without obstruction - Discharge Dispostion Disposition: HOME Condition at time of disposition: Improved Decision to Admit order: No - Prescriptions Prescriptions: Fluticasone Prop 0.05% Nasal [Flonase -] 1 - 2 spray NS BID #1 spray.pump Ondansetron [Zofran *Odt*] 8 mg SL BID #30 od.tablet - Referrals Referrals: [facility] [Provider Group] - Patient Instructions Printed Discharge Instructions: DI for Gallstones Additional Instructions: Please set up an appointment with [facility] to have your gallbladder eventually taken out. Please use Zofran and flonase as needed. Please return to the ED if you have any new or worsening symptoms. - Post Discharge Activity
--- NOTE | 2018-04-09 18:24 | PDOC ---
Attending Attestation - HPI HPI: This patient is a 37 year old female with PMHx of asthma and recent diagnosis of cholelithiasis (01/27/18)presenting with 1 day of abdominal pain, nausea, and vomiting. She states sudden onset of abdominal pain after eating States that the pain came on suddenly after eating chicken wings, hebrew fries, and chicken tenders with honey barbeque sauce. She also endorses dizziness and chills. Surgical Hx: 2 c-sections Denies chest pain, fevers, diarrhea, constipation, or other symptoms. 04/09/18 19:51 - Physicial Exam PE: GENERAL: Well-appearing, well-nourished. No apparent distress. HEENT: Normocephalic, atraumatic. PERRL, EOM intact. CARDIOVASCULAR: Regular rate and rhythm. PULMONARY: Clear to auscultation bilaterally. ABDOMEN: Soft, non-distended, non-tender. No guarding or rebound. EXTREMITIES: Normal ROM in all four extremities. No gross deformities. No edema. SKIN: Warm, dry. No rash. No petchiae. NEUROLOGICAL: No focal neurological deficits. 04/09/18 19:51 <Elyssa Lipscomb - Last Filed: 04/09/18 19:51> - Resident Resident Name: Hunter Mcmillan - ED Attending Attestation I have performed the following: I have examined & evaluated the patient, The case was reviewed & discussed with the resident, I agree w/resident's findings & plan, Exceptions are as noted - HPI HPI: 04/09/18 18:24 37 yo female p/w nausea and vomiting - Medical Decision Making diff diag includes cholecystitis,appendicitis,gastroenteritis 04/09/18 23:25 Right upper quadrant abdominal ultrasound reveals multiple gallstones in the gallbladder, no gallbladder wall thickening or pericholecystic fluid. Normal common bile duct measuring 4.1 mm No right hydronephrosis. No right upper quadrant free fluid Liver somewhat enlarged measuring 18.6 cm 04/09/18 23:31 imp gastritis plan discharge home <Hanna Carpenter - Last Filed: 04/09/18 23:32>
[2018-04-09 18:29] VITALS: BMI 35.2
[2018-04-09] MEDS ORDERED: ONDANSETRON 4 MG/2 ML VIAL IVPUSH ONE (18:31)
[2018-04-09] MEDS ORDERED: ONDANSETRON 4 MG/2 ML VIAL ONE (18:53)
[2018-04-09 19:42] LABS: BASO % 0.9 % (0-2.0); EOS % 6.5 % (0-4.5); HEMATOCRIT 36.8 % (32.4-45.2); HEMOGLOBIN 12.3 GM/dL (10.7-15.3); LYMPH % 25.2 % (8-40); MCH 27.3 pg (25.7-33.7); MCHC 33.3 g/dl (32.0-36.0); MEAN CELL VOLUME 81.9 fl (80-96); MEAN PLT VOLUME 9.8 fl (7.5-11.1); NEUT % 61.4 % (42.8-82.8); PLATELET COUNT 239 K/MM3 (134-434); RBC 4.49 M/mm3 (3.60-5.2); RDW 15.7 % (11.6-15.6)
[2018-04-09 20:11] LABS: AMYLASE 44 U/L (25-115); LIPASE 81 U/L (73-393)
[2018-04-09 20:17] LABS: ALBUMIN 3.7 g/dl (3.4-5.0); ALK PHOS 61 U/L (45-117); ANION GAP 12 MMOL/L (8-16); BILIRUBIN,TOTAL 0.3 mg/dL (0.2-1); BLOOD UREA NITROGEN 13 mg/dL (7-18); CALCIUM 8.9 mg/dL (8.5-10.1); CHLORIDE 114 mmol/L (98-107); CO2 25 mmol/L (21-32); CREATININE 0.9 mg/dL (0.55-1.3); GLUCOSE,RANDOM 85 mg/dL (74-106); POTASSIUM 4.7 mmol/L (3.5-5.1); SGOT/AST 10 U/L (15-37); SGPT/ALT 17 U/L (13-61); SODIUM 152 mmol/L (136-145); TOT PROT 7.2 g/dl (6.4-8.2)
[2018-04-09 21:10] LABS: URINE APPEARANCE CLEAR; URINE BILIRUBIN NEGATIVE (<2.0 mg/dL); URINE COLOR LTYELLOW; URINE GLUCOSE (UA) NEGATIVE (NEGATIVE); URINE KETONE NEGATIVE (NEGATIVE); URINE LEUK ESTERASE NEGATIVE (NEGATIVE); URINE NITRITE NEGATIVE (NEGATIVE); URINE PROTEIN 1+ (NEGATIVE); URINE UROBILINOGEN NEGATIVE mg/dL (0.2-1.0)
[2018-04-09 21:11] LABS: HCG,QUALITATIVE URINE Negative
[2018-04-09 21:13] LABS: URINE MUCUS RARE
[2018-04-09] MEDS ORDERED: METOCLOPRAMIDE HCL INJECTION 10 MG/2 ML VIAL ONE (21:29)
[2018-04-09] MEDS ORDERED: METOCLOPRAMIDE HCL INJECTION 10 MG/2 ML VIAL IVPUSH ONE (21:29)
[2018-04-09] MEDS ORDERED: MAG HYDROX/AL HYDROX/SIMETH 30 ML UNIT-DOSE CUP PO ONE (22:02)
[2018-04-09] MEDS ORDERED: MAG HYDROX/AL HYDROX/SIMETH 30 ML UNIT-DOSE CUP ONE (22:05)
[2018-04-09 22:40] LABS: ANION GAP 8 MMOL/L (8-16); BLOOD UREA NITROGEN 12 mg/dL (7-18); CALCIUM 8.5 mg/dL (8.5-10.1); CHLORIDE 107 mmol/L (98-107); CO2 25 mmol/L (21-32); CREATININE 0.8 mg/dL (0.55-1.3); GLUCOSE,RANDOM 91 mg/dL (74-106); POTASSIUM 4.5 mmol/L (3.5-5.1); SODIUM 139 mmol/L (136-145)
[2018-04-10 00:59] VITALS: BP 110/55; PULSE 62; TEMP 98.3
== END 2018-04-10 00:39 | disposition home or self-care (01) ==
LOC: JER 18:08
PROC: 3E033GC Introduction of Other Therapeutic Substance into Peripheral Vein, Percutaneous Approach (ICD-10-PCS; principal; 2018-04-09)
PROC: 3E0337Z Introduction of Electrolytic and Water Balance Substance into Peripheral Vein, Percutaneous Approach (ICD-10-PCS; 2018-04-09)
DX: K80.20 Calculus of gallbladder without cholecystitis without obstruction (principal)
CPT/HCPCS: 36415; 76705-TC; 80048; 80053; 81003; 81015; 82150; 83690; 84703; 85025; 96361; 96374; 96375; 99284-25; J7030

== ENCOUNTER 2018-10-22 13:34 | Inpatient (IN) | payer OTHER ==
[2018-10-22 18:02] VITALS: BMI 29.0
--- NOTE | 2018-10-22 19:28 | HP ---
COWS - Scale Resting Pulse: 1= [place] 81-100 Sweatin= Chills/Flushing Restless Observation: 1= Difficult to Sit Still Pupil Size: 1= Pupils >than Normal Bone or Joint Aches: 2= Severe Diffuse Aches Runny Nose/ Eye Tearin= Runny Nose/Eyes GI Upset > 30mins: 2= Nausea/Diarrhea Tremor Observation: 2= Slight Tremor Visible Yawning Observation: 2= >3x During Session Anxiety or Irritability: 2=Irritable/Anxious Goose Flesh Skin: 0=Smooth Skin COWS Score: 16 CIWA Score Nausea/Vomitin Muscle Tremors: 2 Anxiety: 2 Agitation: 2 Paroxysmal Sweats: 1-Minimal Palms Moist Orientation: 0-Oriented Tacttile Disturbances: 1-Very Mild Itch/Numbness Auditory Disturbances: 1-Very Mild Visual Disturbances: 0-None Headache: 2-Mild CIWA-Ar Total Score: 13 - Admission Criteria [facility]ASAS Guidelines: Admission for Medically Managed Detox: Requires at least one of the followin. CIWA greater than 12 2. Seizures within the past 24 hours 3. Delirium tremens within the past 24 hours 4. Hallucinations within the past 24 hours 5. Acute intervention needed for co occurring medical disorder 6. Acute intervention needed for co occurring psychiatric disorder 7. Severe withdrawal that cannot be handled at a lower level of care (continued vomiting, continued diarrhea, abnormal vital signs) requiring intravenous medication and/or fluids 8. Admission ROS [facility] Chief Complaint: i need help to stop using heroin,cocaine and marijuana,alcohol abused Allergies/Adverse Reactions: Allergies Allergy/AdvReac Type Severity Reaction Status Date / Time No Known Allergies Allergy Verified 10/22/18 17:45 History of Present Illness: this 38 years old female with heroin,cocaine and marijuana dependence seeking detox,withdrawal symptom, seeking detox multiple admissions in detox,last [facility] 01/23/18 to 01/28/18 nicotine dependence 3 cigarette/day weight loss anxiety,depression,insomnia longest period of sobriety 2 months plan for rehab also had asthma also alcohol abused history of gall stone redness of both forearms at the site of injection Exam Limitations: No Limitations - Ebola screening Have you traveled outside of the country in the last 21 days: No (N) Have you had contact with anyone from an Ebola affected area: No Do you have a fever: No - Review of Systems Constitutional: Chills, Loss of Appetite, Malaise, Night Sweats, Changes in sleep, Weakness EENT: reports: Tearing, Nose Congestion Respiratory: reports: Other (asthma) Cardiac: reports: No Symptoms Reported GI: reports: Diarrhea, Nausea, Vomiting, Abdominal cramping : reports: No Symptoms Reported Musculoskeletal: reports: Back Pain, Joint Pain, Muscle Pain, Joint Stiffness Integumentary: reports: Dryness Neuro: reports: Headache, Tremors Endocrine: reports: No Symptoms Reported Hematology: reports: No Symptoms Reported Psychiatric: reports: No Sypmtoms Reported, Mood/Affect Appropiate, Orientated x3, Anxious, Depressed, other (insomnia) Other Systems: Reviewed and Negative Patient History - Patient Medical History Hx Anemia: No Hx Asthma: Yes (on albuterol inhaler) Hx Chronic Obstructive Pulmonary Disease (COPD): No Hx Cardiac Disorders: Yes (PATIENT REPORTED HISTORY OF HEART MURMUR AT ) Hx Congestive Heart Failure: No Hx Hypertension: No Hx Hypercholesterolemia: No Hx Pacemaker: No HX Cerebrovascular Accident: No Hx Seizures: No Hx Dementia: No Hx Diabetes: No Hx Gastrointestinal Disorders: Yes (cholelithiasis) Hx Liver Disease: No Hx Genitourinary Disorders: No Hx Sexually Transmitted Disorders: No Hx Renal Disease (ESRD): No Hx Thyroid Disease: No Hx Human Immunodeficiency Virus (HIV): (last 2018 negative) Hx Hepatitis C: No Hx Depression: Yes Hx Suicide Attempt: No Hx Bipolar Disorder: No Hx Schizophrenia: No Other Medical History: no suicidal,no homicidal - Patient Surgical History Past Surgical History: Yes Hx Neurologic Surgery: No Hx Cataract Extraction: No Hx Cardiac Surgery: No Hx Lung Surgery: No Hx Breast Surgery: No Hx Breast Biopsy: No Hx Abdominal Surgery: No Hx Appendectomy: No Hx Cholecystectomy: No Hx Genitourinary Surgery: No Hx Section: Yes (6 SECTIONS LAST 09/2014) Hx Orthopedic Surgery: No Anesthesia Reaction: No - PPD History Previous Implant?: Yes Documented Results: Positive w/o proof PPD to be Administered?: No - Reproductive History Patient is a Female of Child Bearing Age (11 -55 yrs old): Yes Last Menstrual Period: 09/10/18 Patient : No - Smoking Cessation Smoking history: Never smoked Have you smoked in the past 12 months: Yes Aproximately how many cigarettes per day: 12 Hx Chewing Tobacco Use: No Initiated information on smoking cessation: Yes 'Breaking Loose' booklet given: 10/22/18 - Substance & Tx. History Hx Alcohol Use: No Hx Substance Use: Yes Substance Use Type: Alcohol, Cocaine, Heroin, Marijuana - Substances abused Heroin Substance route: Injection Frequency: Daily Amount used: 12 to 13 bags Age of first use: 36 Date of last use: 10/22/18 Cocaine Substance route: Injection Frequency: 1-2 times per week Amount used: 2 bags Age of first use: 20 Date of last use: 10/20/18 Alcohol Substance route: Oral Frequency: 1-2 times per week Amount used: 1 pint Age of first use: 20 Date of last use: 10/20/18 Marijuana/Hashish Substance route: Smoking Frequency: 1-3 times last 30 days Amount used: couple of joints Age of first use: 17 Date of last use: 10/21/18 Family Disease History - Family Disease History Family History: Denies Admission Physical Exam [facility] - Vital Signs Vital Signs: Vital Signs - 24 hr 10/22/18 17:43 Temperature 98.0 F Pulse Rate 84 Respiratory 16 Rate Blood Pressure 112/62 - Physical General Appearance: Yes: Moderate Distress, Tremorous, Irritable, Sweating, Anxious HEENTM: Yes: Normal ENT Inspection, Normocephalic, PATI, Pharynx Normal Respiratory: Yes: Lungs Clear, Normal Breath Sounds, No Respiratory Distress, Other (asthma) Neck: Yes: No masses,lesions,Nodules, Supple, Trachea in good position Breast: Yes: Breast Exam Deferred Cardiology: Yes: Within Normal Limits, Regular Rhythm, Regular Rate, S1, S2 Abdominal: Yes: Within Normal Limits, Normal Bowel Sounds, Non Tender, Soft Genitourinary: Yes: Within Normal Limits Back: Yes: Normal Inspection, Muscle Spasm Musculoskeletal: Yes: Back pain, Joint Stiffness, Muscle Pain Extremities: Yes: Within Normal Limits, Normal Range of Motion, Tremors Neurological: Yes: tube handler II-XII NML intact, Fully Oriented, Alert, Motor Strength 5/5 Integumentary: Yes: Dry, Track Barr (cellulitis of both forearms) Lymphatic: Yes: Other - Diagnostic (1) Opioid dependence with withdrawal Current Visit: No Status: Acute (2) Alcohol abuse Current Visit: Yes Status: Acute (3) Anxiety and depression Current Visit: No Status: Acute (4) Asthma Current Visit: No Status: Acute Qualifiers: Asthma severity: unspecified severity Asthma persistence: unspecified Asthma complication type: unspecified Qualified Code(s): J45.909 - Unspecified asthma, uncomplicated (5) Cholelithiasis Current Visit: No Status: Acute Qualifiers: Cholelithiasis location: gallbladder Cholecystitis presence: without cholecystitis Biliary obstruction: without biliary obstruction Qualified Code(s): K80.20 - Calculus of gallbladder without cholecystitis without obstruction (6) Insomnia Current Visit: No Status: Acute (7) Nicotine dependence Current Visit: No Status: Acute (8) Cocaine dependence Current Visit: No Status: Suspected Qualifiers: Substance use status: uncomplicated Qualified Code(s): F14.20 - Cocaine dependence, uncomplicated (9) Cannabis abuse Current Visit: Yes Status: Acute (10) Cellulitis and abscess of upper arm and forearm Current Visit: Yes Status: Acute (11) Cellulitis Current Visit: Yes Status: Acute Cleared for Admission [facility] - Detox or Rehab Detox Regimen/Protocol: Methadone/Valium Breathalyzer - Breathalyzer Breathalyzer: 0 Urine Drug Screen - Test Device Lot number: [id number] Expiration date: 06/29/20 - Control Is test valid?: Yes - Results Drug screen NEGATIVE: No Urine drug screen results: THC-Marijuana, KENJI-Cocaine, FEN-Fentanyl, MOP-Opiates Inpatient Rehab Admission - Rehab Decision to Admit Inpatient rehab admission?: No
[2018-10-22] MEDS ORDERED: cloNIDine HCL 0.1 MG TABLET PO PRN (19:44)
[2018-10-22] MEDS ORDERED: METHADONE HCL 10 MG TABLET (FOR DETOX USE ONLY) PO ONE ×2 (19:45→23:00)
[2018-10-22] MEDS ORDERED: MAGNESIUM HYDROX 2400MG/30ML ORAL SUSPENSION 30 ML CUP PO PRN (19:51)
[2018-10-22] MEDS ORDERED: MAGNESIUM CITRATE 300 ML BOTTLE PO PRN (19:51)
[2018-10-22] MEDS ORDERED: MELATONIN 5 MG TABLETS PO PRN (19:51)
[2018-10-22] MEDS ORDERED: hydrOXYzine PAMOATE 25 MG CAPSULE (FP) PO PRN (19:51)
[2018-10-22] MEDS ORDERED: BISMUTH SUBSALICYLATE 524 MG/30 ML UD PO PRN (19:51)
[2018-10-22] MEDS ORDERED: IBUPROFEN 400 MG TABLET (FP) PO PRN (19:51)
[2018-10-22] MEDS ORDERED: MENTHOL/PHENOL 1 EACH UD MM PRN (19:51)
[2018-10-22] MEDS ORDERED: MAG HYDROX/AL HYDROX/SIMETH 30 ML UNIT-DOSE CUP PO PRN (19:51)
[2018-10-22] MEDS ORDERED: ACETAMINOPHEN 325 MG TABLET (FP) PO PRN ×2 (19:51)
[2018-10-22] MEDS ORDERED: ALBUTEROL SO4 8 GM HFA INHALER IH PRN (19:55)
[2018-10-22] MEDS: diazePAM 5 MG TABLET PO PRN (20:20)
[2018-10-22] MEDS: NICOTINE 21 MG/24 HOURS TOPICAL PATCH TD SCH (20:21)
[2018-10-22] MEDS: BUDESONIDE/FORMETEROL FUMARATE 80/4.5 mcg INHALER IH SCH (22:05)
[2018-10-22] MEDS: THIAMINE HCL 100 MG TABLET (FP) PO SCH (22:05)
[2018-10-22] MEDS: diazePAM 5 MG TABLET PO SCH (22:05)
[2018-10-22] MEDS: FLUTICASONE PROP 0.05% 16 GM NASAL SPRAY NS SCH (23:13)
[2018-10-22] MEDS: CEPHALEXIN MONOHYDRATE 500 MG CAPSULE (UD) PO SCH (23:14)
[2018-10-23] MEDS: diazePAM 5 MG TABLET PO PRN ×3 (03:12→20:52)
[2018-10-23] MEDS: CEPHALEXIN MONOHYDRATE 500 MG CAPSULE (UD) PO SCH ×4 (05:35→23:07)
[2018-10-23] MEDS: diazePAM 5 MG TABLET PO SCH ×3 (05:35→22:30)
[2018-10-23] MEDS: NICOTINE POLACRILEX 2 MG GUM BUC PRN ×3 (05:45→20:40)
[2018-10-23] MEDS ORDERED: METHADONE HCL 10 MG TABLET (FOR DETOX USE ONLY) PO ONE (10:00)
[2018-10-23 10:20] LABS: HEMATOCRIT 33.6 % (32.4-45.2); HEMOGLOBIN 10.7 GM/dL (10.7-15.3); MCH 25.7 pg (25.7-33.7); MCHC 31.9 g/dl (32.0-36.0); MEAN CELL VOLUME 80.5 fl (80-96); MEAN PLT VOLUME 9.5 fl (7.5-11.1); PLATELET COUNT 336 K/MM3 (134-434); RBC 4.18 M/mm3 (3.60-5.2); RDW 16.1 % (11.6-15.6); WHITE BLOOD COUNT 3.8 K/mm3 (4.0-10.0)
[2018-10-23 10:26] LABS: BILIRUBIN,TOTAL 0.2 mg/dL (0.2-1); BLOOD UREA NITROGEN 10.1 mg/dL (7-18); CALCIUM 8.8 mg/dL (8.5-10.1); CREATININE 0.9 mg/dL (0.55-1.3); POTASSIUM 4.1 mmol/L (3.5-5.1); TOT PROT 6.4 g/dl (6.4-8.2)
[2018-10-23] MEDS: NICOTINE 21 MG/24 HOURS TOPICAL PATCH TD SCH (10:59)
[2018-10-23] MEDS: FLUTICASONE PROP 0.05% 16 GM NASAL SPRAY NS SCH ×2 (10:59→22:30)
[2018-10-23] MEDS: PRENATAL VITAMINS W/ FOLIC ACID TABLET (FP) PO SCH (10:59)
[2018-10-23] MEDS: BUDESONIDE/FORMETEROL FUMARATE 80/4.5 mcg INHALER IH SCH ×2 (10:59→22:29)
[2018-10-23] MEDS: METHOCARBAMOL 500 MG TABLET PO PRN (11:03)
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
[2018-10-23] MEDS: hydrOXYzine PAMOATE 50 MG CAPSULE (FP) PO PRN ×3 (12:20→23:52)
[2018-10-23] MEDS ORDERED: ONDANSETRON *ODT* 4 MG TABLET SL PRN (14:16)
--- NOTE | 2018-10-23 14:16 | PN ---
[facility] CIWA - CIWA Score Nausea/Vomitin-No Nausea/No Vomiting Muscle Tremors: 3 Anxiety: 3 Agitation: 3 Paroxysmal Sweats: 3 Orientation: 0-Oriented Tacttile Disturbances: 0-None Auditory Disturbances: 0-None Visual Disturbances: 0-None Headache: 0-None Present CIWA-Ar Total Score: 12 [facility] COWS - Scale Resting Pulse: 0= [place] 80 or Below Sweatin= Chills/Flushing Restless Observation: 1= Difficult to Sit Still Pupil Size: 0= Normal to Room Light Bone or Joint Aches: 2= Severe Diffuse Aches Runny Nose/ Eye Tearin= Nasal Congestion GI Upset > 30mins: 0= None Tremor Observation of Outstretched Hands: 2= Slight Tremor Visible Yawning Observation: 1= 1-2x During Session Anxiety or Irritability: 1=Feels Anxious/Irritable Goose Flesh Skin: 0=Smooth Skin COWS Score: 9 [facility] Progress Note (SOAP) Subjective: sweats mild shakes interrupted sleep body aches chills last night nausea Objective: 10/23/18 14:15 Vital Signs Temperature 97.7 F 10/23/18 09:26 Pulse Rate 74 10/23/18 09:26 Respiratory Rate 18 10/23/18 09:26 Blood Pressure 124/62 10/23/18 09:26 O2 Sat by Pulse Oximetry (%) Laboratory Tests 10/23/18 10/23/18 10/23/18 07:00 07:00 07:00 WBC 3.8 L RBC 4.18 Hgb 10.7 Hct 33.6 MCV 80.5 MCH 25.7 MCHC 31.9 L RDW 16.1 H Plt Count 336 D MPV 9.5 Sodium 139 Potassium 4.1 Chloride 108 H Carbon Dioxide 28 Anion Gap 4 L BUN 10.1 Creatinine 0.9 Est GFR (CKD-EPI)AfAm 94.67 Est GFR (CKD-EPI)NonAf 81.68 Random Glucose 107 H Calcium 8.8 Total Bilirubin 0.2 AST 6 L ALT 10 L Alkaline Phosphatase 73 Total Protein 6.4 Albumin 3.0 L RPR Titer Nonreactive labs noted aaox3 ambulating no acute distress Assessment: 10/23/18 14:15 withdrawals sx Plan: continue detox increase fluids zofran sl prn
[2018-10-23] MEDS ORDERED: AMMONIUM LACTATE 12% LOTION 225 GM BOTTLE TP PRN (17:06)
[2018-10-23] MEDS ORDERED: COLLOIDAL OATMEAL 1 BAR EACH TP PRN (17:06)
[2018-10-23] MEDS: THIAMINE HCL 100 MG TABLET (FP) PO SCH (22:30)
[2018-10-23] MEDS: SUVOREXANT 10 MG TABLET PO PRN (22:31)
[2018-10-23] MEDS ORDERED: hydrOXYzine PAMOATE 25 MG CAPSULE (FP) PO ONE (23:51)
[2018-10-24] MEDS: CEPHALEXIN MONOHYDRATE 500 MG CAPSULE (UD) PO SCH ×3 (05:39→17:45)
[2018-10-24] MEDS: hydrOXYzine PAMOATE 50 MG CAPSULE (FP) PO PRN ×3 (05:41→16:26)
[2018-10-24] MEDS ORDERED: hydrOXYzine PAMOATE 25 MG CAPSULE (FP) PO ONE (05:41)
[2018-10-24] MEDS: diazePAM 5 MG TABLET PO PRN ×3 (06:09→17:49)
[2018-10-24] MEDS ORDERED: METHADONE HCL 10 MG TABLET (FOR DETOX USE ONLY) PO ONE (10:00)
[2018-10-24] MEDS: NICOTINE 21 MG/24 HOURS TOPICAL PATCH TD SCH (10:55)
[2018-10-24] MEDS: BUDESONIDE/FORMETEROL FUMARATE 80/4.5 mcg INHALER IH SCH ×2 (10:55→23:22)
[2018-10-24] MEDS: PRENATAL VITAMINS W/ FOLIC ACID TABLET (FP) PO SCH (10:55)
[2018-10-24] MEDS: FLUTICASONE PROP 0.05% 16 GM NASAL SPRAY NS SCH ×2 (10:55→23:20)
[2018-10-24] MEDS: diazePAM 5 MG TABLET PO SCH ×2 (10:56→22:45)
[2018-10-24] MEDS: NICOTINE POLACRILEX 2 MG GUM BUC PRN ×2 (10:59→16:30)
--- NOTE | 2018-10-24 11:53 | PN ---
S CIWA - CIWA Score Nausea/Vomitin-No Nausea/No Vomiting Muscle Tremors: 3 Anxiety: 1-Mildly Anxious Agitation: 2 Paroxysmal Sweats: 2 Orientation: 0-Oriented Tacttile Disturbances: 0-None Auditory Disturbances: 0-None Visual Disturbances: 0-None Headache: 0-None Present CIWA-Ar Total Score: 8 [facility] COWS - Scale Resting Pulse: 0= [place] 80 or Below Sweatin= Chills/Flushing Restless Observation: 1= Difficult to Sit Still Pupil Size: 0= Normal to Room Light Bone or Joint Aches: 1= Mild Discomfort Runny Nose/ Eye Tearin= None GI Upset > 30mins: 0= None Tremor Observation of Outstretched Hands: 1= Tremor [place], Not Seen Yawning Observation: 1= 1-2x During Session Anxiety or Irritability: 1=Feels Anxious/Irritable Goose Flesh Skin: 0=Smooth Skin COWS Score: 6 [facility] Progress Note (SOAP) Subjective: discomfort to my arm where i inject i have a uti sweats interrupted sleep body aches Objective: 10/24/18 11:50 Vital Signs Temperature 98.1 F 10/24/18 09:54 Pulse Rate 72 10/24/18 09:54 Respiratory Rate 18 10/24/18 09:54 Blood Pressure 106/50 L 10/24/18 09:54 O2 Sat by Pulse Oximetry (%) Laboratory Tests 10/22/18 10/23/18 10/23/18 18:18 07:00 07:00 WBC 3.8 L RBC 4.18 Hgb 10.7 Hct 33.6 MCV 80.5 MCH 25.7 MCHC 31.9 L RDW 16.1 H Plt Count 336 D MPV 9.5 Sodium 139 Potassium 4.1 Chloride 108 H Carbon Dioxide 28 Anion Gap 4 L BUN 10.1 Creatinine 0.9 Est GFR (CKD-EPI)AfAm 94.67 Est GFR (CKD-EPI)NonAf 81.68 Random Glucose 107 H Calcium 8.8 Total Bilirubin 0.2 AST 6 L ALT 10 L Alkaline Phosphatase 73 Total Protein 6.4 Albumin 3.0 L POC Urine HCG, Qual Negative RPR Titer 10/23/18 07:00 WBC RBC Hgb Hct MCV MCH MCHC RDW Plt Count MPV Sodium Potassium Chloride Carbon Dioxide Anion Gap BUN Creatinine Est GFR (CKD-EPI)AfAm Est GFR (CKD-EPI)NonAf Random Glucose Calcium Total Bilirubin AST ALT Alkaline Phosphatase Total Protein Albumin POC Urine HCG, Qual RPR Titer Nonreactive u/a ordered aaox3 ambulating no acute distress Assessment: 10/24/18 11:50 withdrawal sx assessed inj site; no ponce or infection noted; site is harden. pt is on ABX and will continue as ordered Plan: continue detox increase fluids analgesic balm ordered to apply to IVD site. encouraged warm compress to IVD site continue with keflex UTI result pending will order macrobid bid
[2018-10-24] MEDS ORDERED: METHYL SALICYLATE/MENTHOL OINT 30 GM TUBE TP SCH (12:00)
[2018-10-24] MEDS: NITROFURANTOIN MACROCRYSTAL 50 MG CAPSULE (FP) PO SCH ×2 (13:10→17:45)
--- NOTE | 2018-10-24 13:21 | PN ---
[facility] Progress Note Note: pt c/o of vaginal discharge, itchy foul smelling; monistat 7 day VG ordered
[2018-10-24] MEDS: METHOCARBAMOL 500 MG TABLET PO PRN (16:31)
[2018-10-24 18:18] LABS: EPI CELLS 5.5 /HPF (0-5/HPF); HYALINE CASTS 1 /lpf (0-8); PH,URINE 6.5 (5.0-8.0); URINE APPEARANCE CLEAR; URINE BACTERIA 34.5 /hpf (NEGATIVE); URINE BILIRUBIN NEGATIVE (NEGATIVE); URINE COLOR YELLOW; URINE GLUCOSE (UA) NEGATIVE (NEGATIVE); URINE KETONE NEGATIVE (NEGATIVE); URINE LEUK ESTERASE TRACE (NEGATIVE); URINE NITRITE NEGATIVE (NEGATIVE); URINE PROTEIN NEGATIVE (NEGATIVE); URINE RBC 0 /hpf (0-4); URINE UROBILINOGEN 0.2 mg/dL (0.2-1.0); URINE WBC 2 /hpf (0-5)
[2018-10-24] MEDS ORDERED: MICONAZOLE NITRATE 2% VAGINAL CREAM 45 GM TUBE VG SCH (22:00)
[2018-10-24] MEDS: THIAMINE HCL 100 MG TABLET (FP) PO SCH (22:45)
[2018-10-24] MEDS: SUVOREXANT 10 MG TABLET PO PRN (22:46)
[2018-10-25] MEDS: CEPHALEXIN MONOHYDRATE 500 MG CAPSULE (UD) PO SCH ×2 (00:12→05:58)
[2018-10-25] MEDS: NITROFURANTOIN MACROCRYSTAL 50 MG CAPSULE (FP) PO SCH ×2 (00:12→05:58)
[2018-10-25] MEDS ORDERED: diazePAM 5 MG TABLET PO SCH (06:00)
[2018-10-25] MEDS: NICOTINE POLACRILEX 2 MG GUM BUC PRN (06:11)
[2018-10-25] MEDS: METHOCARBAMOL 500 MG TABLET PO PRN (07:13)
[2018-10-25] MEDS: hydrOXYzine PAMOATE 50 MG CAPSULE (FP) PO PRN (07:14)
[2018-10-25 07:37] VITALS: BP 102/50; PULSE 83; TEMP 98.1
[2018-10-25] MEDS: diazePAM 5 MG TABLET PO PRN (08:02)
--- NOTE | 2018-10-25 09:33 | PN ---
[facility] Progress Note Note: pt was encouraged to stay but insisted on signing out. aggressive symptomatic management attempted however pt in spite of extensive motivational couseling regarding risk of relapse, seizures, OD /loss pt chose to sign out AMA
[2018-10-25] MEDS ORDERED: METHADONE (DETOX) 10 MG, METHADONE (DETOX) 5 MG PO ONE (10:00)
[2018-10-25] MEDS ORDERED: METHADONE HCL 10 MG TABLET (FOR DETOX USE ONLY) PO ONE (10:00)
--- NOTE | 2018-10-25 14:49 | DS ---
[facility] Detox Discharge Summary Admission Date: 10/22/18 - History Present History: Alcohol Dependence, Opioid Dependence - Physical Exam Results Vital Signs: Vital Signs Temperature 98.1 F 10/25/18 07:36 Pulse Rate 83 10/25/18 07:36 Respiratory Rate 18 10/25/18 07:36 Blood Pressure 102/50 L 10/25/18 07:36 O2 Sat by Pulse Oximetry (%) - Treatment Hospital Course: Discharged Condition Good - Medication Discharge Medications: Ambulatory Orders Ibuprofen [Motrin -] 800 mg PO Q6H #30 tablet 01/28/18 hydrOXYzine PAMOATE [Vistaril -] 50 mg PO Q6H PRN #30 capsule 01/31/18 Albuterol Sulfate Inhaler - [Ventolin HFA Inhaler -] 2 inhaler PO Q4HWA PRN #1 inhaler 10/25/18 Budesonide/Formeterol Fumarate [SYMBICORT 80/4.5mcg -] 1 inh PO BID #1 inhaler 10/25/18 Fluticasone Prop 0.05% Nasal [Flonase -] 1 spray NS BID #1 spray.pump 10/25/18 Miconazole Nitrate [Monistat-7 -] 1 applic VG HS #1 tube 10/25/18 Nitrofurantoin Macrocrystal [Macrodantin -] 50 mg PO Q6HPO #20 capsule 10/25/18 - Diagnosis (1) Alcohol dependence Status: Chronic Qualifiers: Substance use status: uncomplicated Qualified Code(s): F10.20 - Alcohol dependence, uncomplicated (2) Anxiety and depression Status: Acute (3) Cannabis abuse Status: Acute (4) Cellulitis Status: Acute Qualifiers: Site of cellulitis: extremity Site of cellulitis of extremity: upper extremity Laterality: unspecified laterality Qualified Code(s): L03.119 - Cellulitis of unspecified part of limb (5) Cellulitis and abscess of upper arm and forearm Status: Acute (6) Insomnia Status: Acute (7) Nicotine dependence Status: Chronic Qualifiers: Nicotine product type: cigarettes Substance use status: uncomplicated Qualified Code(s): F17.210 - Nicotine dependence, cigarettes, uncomplicated (8) Opioid dependence with withdrawal Status: Chronic (9) Substance induced mood disorder Status: Acute (10) Substance-induced anxiety disorder Status: Acute (11) Substance-induced sleep disorder Status: Chronic (12) Asthma Status: Chronic Qualifiers: Asthma severity: unspecified severity Asthma persistence: unspecified Asthma complication type: unspecified Qualified Code(s): J45.909 - Unspecified asthma, uncomplicated - AMA Did Patient Leave Against Medical Advice: Yes (family emergency; going home)
[2018-10-26] MEDS ORDERED: METHADONE HCL 5 MG TABLET (FOR DETOX USE ONLY) PO ONE (06:00)
[2018-10-26] MEDS ORDERED: METHADONE HCL 10 MG TABLET (FOR DETOX USE ONLY) PO ONE (10:00)
[2018-10-27] MEDS ORDERED: METHADONE HCL 5 MG TABLET (FOR DETOX USE ONLY) PO ONE (06:00)
== END 2018-10-25 08:35 | disposition left against medical advice (07) | DRG 770 ==
LOC: YASAS 13:34 → Y6N 19:40
PROVIDERS: ADMIT Surgery; ATTEND Surgery
PROC: HZ2ZZZZ Detoxification Services for Substance Abuse Treatment (ICD-10-PCS; principal; 2018-10-22)
DX: F11.23 Opioid dependence with withdrawal (principal); F14.20 Cocaine dependence, uncomplicated; F10.10 Alcohol abuse, uncomplicated; F12.10 Cannabis abuse, uncomplicated; F17.210 Nicotine dependence, cigarettes, uncomplicated; F41.9 Anxiety disorder, unspecified; F32.9 Major depressive disorder, single episode, unspecified; F19.24 Other psychoactive substance dependence with psychoactive substance-induced mood disorder; F19.280 Other psychoactive substance dependence with psychoactive substance-induced anxiety disorder; F19.282 Other psychoactive substance dependence with psychoactive substance-induced sleep disorder; L03.114 Cellulitis of left upper limb; L03.113 Cellulitis of right upper limb; G47.00 Insomnia, unspecified; J45.909 Unspecified asthma, uncomplicated; N89.8 Other specified noninflammatory disorders of vagina; R01.1 Cardiac murmur, unspecified; R76.11 Nonspecific reaction to tuberculin skin test without active tuberculosis; R63.4 Abnormal weight loss
CPT/HCPCS: 36415; 71046-TC-FY; 80053; 81003; 81025; 85027; 86593; Q0162

== ENCOUNTER 2019-02-12 12:48 | Inpatient (IN) | payer OTHER ==
[2019-02-12 13:29] VITALS: BMI 27.5
--- NOTE | 2019-02-12 14:40 | HP ---
COWS - Scale Resting Pulse: 0= [place] 80 or Below Sweatin=Flushed/Facial Moisture Restless Observation: 0= Sits Still Pupil Size: 0= Normal to Room Light Bone or Joint Aches: 2= Severe Diffuse Aches Runny Nose/ Eye Tearin= Runny Nose/Eyes GI Upset > 30mins: 3= Vomiting/Diarrhea Tremor Observation: 1= Tremor [place], Not Seen Yawning Observation: 0= None Anxiety or Irritability: 1=Feels Anxious/Irritable Goose Flesh Skin: 0=Smooth Skin COWS Score: 11 CIWA Score - Admission Criteria [facility]ASAS Guidelines: Admission for Medically Managed Detox: Requires at least one of the followin. CIWA greater than 12 2. Seizures within the past 24 hours 3. Delirium tremens within the past 24 hours 4. Hallucinations within the past 24 hours 5. Acute intervention needed for co occurring medical disorder 6. Acute intervention needed for co occurring psychiatric disorder 7. Severe withdrawal that cannot be handled at a lower level of care (continued vomiting, continued diarrhea, abnormal vital signs) requiring intravenous medication and/or fluids 8. Admitting History and Physical - Past Medical History ...LMP: 09/10/18 - Smoking History Smoking history: Never smoked Have you smoked in the past 12 months: Yes Aproximately how many cigarettes per day: 12 - Alcohol/Substance Use Hx Alcohol Use: No Admission ROS [facility] Chief Complaint: Renato Nguyen is a 38 year old female presenting for heroin abuse. Allergies/Adverse Reactions: Allergies Allergy/AdvReac Type Severity Reaction Status Date / Time No Known Allergies Allergy Verified 10/22/18 17:45 History of Present Illness: Renato Nguyen is a 38 year old female presenting for heroin abuse. Heroin: 14 bags/daily. Daily user. Last use was earlier today. Endorses IVDU, uses clean needles, occasionally reuses needles. Denies history of overdose. Does not have a Narcan kit and does not know how to use one. Has a history of abscess from needle use. Cocaine: 2 bags per day. Mixes with heroin, Endorses IVDU. Alcohol: 1 pint every other day. Denies seizures. Has a history of blackouts. Has been to detox and rehab in the past. Plans after detox are to go to an inpatient rehab facility. States is interested in a methadone or suboxone program. Medical History: asthma, bronchitis, heart murmur, gallstones (no removal of gallbladder) Psychiatric History: anxiety, depression, bipolar Surgical History: (x6) Smokin/2 ppd, 23 years Social: stays with friend, unemployed. Gets money from friends. Not in contact with children. Utox: KENJI, MOP, OXY ANGUS: 0.000 Will be admitted for detox with methadone protocol. Will speak to counselor regarding plans after detox and possibly joining rehab and detox program. Marked site of erythema and will continue to monitor, patient currently afebrile. Counseled on using clean needles and needle exchange programs. Counseled on obtaining a Narcan Kit. Exam Limitations: No Limitations - Ebola screening Have you traveled outside of the country in the last 21 days: No Have you had contact with anyone from an Ebola affected area: No Do you have a fever: No - Review of Systems Constitutional: Chills, Loss of Appetite, Changes in sleep (insomnia) EENT: reports: Tearing, Ear Pain (R ear), Throat Pain, Other (rhinnorhea) Respiratory: reports: Wheezing Cardiac: reports: No Symptoms Reported GI: reports: Nausea : reports: No Symptoms Reported Musculoskeletal: reports: Muscle Pain (diffuse aches) Integumentary: reports: No Symptoms Reported Neuro: reports: No Symptoms reported Endocrine: reports: No Symptoms Reported Hematology: reports: No Symptoms Reported Psychiatric: reports: Agitated, Anxious Patient History - Patient Medical History Hx Anemia: No Hx Asthma: Yes (on albuterol inhaler) Hx Chronic Obstructive Pulmonary Disease (COPD): No Hx Cardiac Disorders: Yes (PATIENT REPORTED HISTORY OF HEART MURMUR AT ) Hx Congestive Heart Failure: No Hx Hypertension: No Hx Hypercholesterolemia: No Hx Pacemaker: No HX Cerebrovascular Accident: No Hx Seizures: No Hx Dementia: No Hx Diabetes: No Hx Gastrointestinal Disorders: Yes (cholelithiasis) Hx Liver Disease: No Hx Genitourinary Disorders: No Hx Sexually Transmitted Disorders: No Hx Renal Disease (ESRD): No Hx Thyroid Disease: No Hx Human Immunodeficiency Virus (HIV): (last 2018 negative) Hx Hepatitis C: No Hx Depression: Yes Hx Suicide Attempt: No Hx Bipolar Disorder: No Hx Schizophrenia: No - Patient Surgical History Past Surgical History: Yes Hx Neurologic Surgery: No Hx Cataract Extraction: No Hx Cardiac Surgery: No Hx Lung Surgery: No Hx Breast Surgery: No Hx Breast Biopsy: No Hx Abdominal Surgery: No Hx Appendectomy: No Hx Cholecystectomy: No Hx Genitourinary Surgery: No Hx Section: Yes (6 SECTIONS LAST 09/2014) Hx Orthopedic Surgery: No Anesthesia Reaction: No - Reproductive History Patient is a Female of Child Bearing Age (11 -55 yrs old): Yes Last Menstrual Period: 01/20/19 - Smoking Cessation Smoking history: Never smoked Have you smoked in the past 12 months: Yes Aproximately how many cigarettes per day: 12 Hx Chewing Tobacco Use: No Initiated information on smoking cessation: Yes 'Breaking Loose' booklet given: 02/12/19 - Substance & Tx. History Hx Alcohol Use: Yes Hx Substance Use: Yes Substance Use Type: Alcohol, Cocaine, Heroin - Substances abused Heroin Substance route: Injection Frequency: Daily Amount used: 14 bags Age of first use: 36 Date of last use: 02/12/19 Cocaine Substance route: Injection Frequency: 1-2 times per week Amount used: 2 bags Age of first use: 20 Date of last use: 02/11/19 Alcohol Substance route: Oral Frequency: 1-2 times per week Amount used: 1 pint Age of first use: 20 Date of last use: 02/10/19 Marijuana/Hashish Substance route: Smoking Frequency: 1-3 times last 30 days Amount used: couple of joints Age of first use: 17 Date of last use: 02/10/19 Admission Physical Exam BHS - Vital Signs Vital Signs: Vital Signs - 24 hr 02/12/19 02/12/19 13:26 14:00 Temperature 97.9 F 97.9 F Pulse Rate 50 L 50 L Respiratory 16 16 Rate Blood Pressure 100/50 L 100/50 L - Physical General Appearance: Yes: Mild Distress, Irritable HEENTM: Yes: EOMI, Normocephalic, Normal Voice, PATI, Pharynx Normal Respiratory: Yes: Chest Non-Tender, Lungs Clear, Normal Breath Sounds, No Respiratory Distress, No Accessory Muscle Use Neck: Yes: No masses,lesions,Nodules, Trachea in good position Cardiology: Yes: Regular Rhythm, Regular Rate, S1, S2 Abdominal: Yes: Normal Bowel Sounds, Non Tender, Flat, Soft Genitourinary: Yes: Within Normal Limits Back: Yes: Normal Inspection Musculoskeletal: Yes: full range of Motion, Muscle Pain Extremities: Yes: Normal Capillary Refill, Normal Range of Motion Neurological: Yes: 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, Fully Oriented, Alert, Motor Strength 5/5 Integumentary: Yes: Normal Color, Dry, Track Barr (noted on bilateral arms), Other (area of erythema, warmth and tenderness on L arm.) - Diagnostic (1) Anxiety and depression Current Visit: No Status: Acute (2) Insomnia Current Visit: No Status: Acute (3) Substance induced mood disorder Current Visit: No Status: Acute (4) Nicotine dependence Current Visit: No Status: Chronic Qualifiers: Nicotine product type: cigarettes Substance use status: uncomplicated Qualified Code(s): F17.210 - Nicotine dependence, cigarettes, uncomplicated (5) Opioid dependence with withdrawal Current Visit: No Status: Chronic (6) Substance-induced sleep disorder Current Visit: No Status: Chronic Cleared for Admission [facility] - Detox or Rehab [facility] Level of Care: Medically Managed Detox Regimen/Protocol: Methadone Breathalyzer - Breathalyzer Breathalyzer: 0 Urine Drug Screen - Test Device Lot number: [id number] Expiration date: 09/29/20 - Control Is test valid?: Yes - Results Drug screen NEGATIVE: No Urine drug screen results: KENJI-Cocaine, MOP-Opiates, OXY-Oxycodone Inpatient Rehab Admission - Rehab Decision to Admit Inpatient rehab admission?: No
--- NOTE | 2019-02-12 14:58 | PN ---
Teaching Attending Note Name of Resident: Juan Marquez ATTENDING PHYSICIAN STATEMENT I saw and evaluated the patient. I reviewed the resident's note and discussed the case with the resident. I agree with the resident's findings and plan as documented. SUBJECTIVE: 38 yo with long h/o opioid use, continuing to use heroin IV. Here for detox OBJECTIVE: Vital Signs - 24 hr 02/12/19 02/12/19 13:26 14:00 Temperature 97.9 F 97.9 F Pulse Rate 50 L 50 L Respiratory 16 16 Rate Blood Pressure 100/50 L 100/50 L ASSESSMENT AND PLAN: Opioid use disorder- methadone detox
[2019-02-12] MEDS ORDERED: ACETAMINOPHEN 325 MG TABLET (FP) PO PRN (15:08)
[2019-02-12] MEDS ORDERED: MAGNESIUM HYDROX 2400MG/30ML ORAL SUSPENSION 30 ML CUP PO PRN (15:08)
[2019-02-12] MEDS ORDERED: MAGNESIUM CITRATE 300 ML BOTTLE PO PRN (15:08)
[2019-02-12] MEDS ORDERED: MELATONIN 5 MG TABLETS PO PRN (15:08)
[2019-02-12] MEDS ORDERED: MAG HYDROX/AL HYDROX/SIMETH 30 ML UNIT-DOSE CUP PO PRN (15:08)
[2019-02-12] MEDS ORDERED: MENTHOL/PHENOL 1 EACH UD MM PRN (15:08)
[2019-02-12] MEDS ORDERED: ALBUTEROL SO4 8 GM HFA INHALER IH PRN (15:09)
[2019-02-12] MEDS ORDERED: METHADONE HCL 10 MG TABLET (FOR DETOX USE ONLY) PO ONE (15:35)
[2019-02-12] MEDS: hydrOXYzine PAMOATE 25 MG CAPSULE (FP) PO PRN ×2 (16:36→22:15)
[2019-02-12] MEDS ORDERED: BUDESONIDE/FORMETEROL FUMARATE 80/4.5 mcg INHALER IH SCH (22:00)
[2019-02-12] MEDS: BUDESONIDE/FORMETEROL FUMARATE 80/4.5 mcg INHALER IH SCH (22:16)
[2019-02-12] MEDS: THIAMINE HCL 100 MG TABLET (FP) PO SCH (22:16)
[2019-02-12] MEDS: FLUTICASONE PROP 0.05% 16 GM NASAL SPRAY NS SCH (22:16)
[2019-02-13] MEDS: cloNIDine HCL 0.1 MG TABLET PO PRN (04:13)
[2019-02-13] MEDS: IBUPROFEN 400 MG TABLET (FP) PO PRN (04:15)
[2019-02-13] MEDS: hydrOXYzine PAMOATE 25 MG CAPSULE (FP) PO PRN (07:34)
[2019-02-13] MEDS ORDERED: P-EPHED 60MG/TRIPROLIDI 2.5MG TABLET PO PRN (08:29)
[2019-02-13] MEDS: diazePAM 5 MG TABLET PO PRN ×4 (08:55→21:42)
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
[2019-02-13 09:43] LABS: HEMATOCRIT 39.8 % (32.4-45.2); HEMOGLOBIN 12.6 GM/dL (10.7-15.3); MCH 25.7 pg (25.7-33.7); MCHC 31.6 g/dl (32.0-36.0); MEAN CELL VOLUME 81.2 fl (80-96); MEAN PLT VOLUME 10.5 fl (7.5-11.1); PLATELET COUNT 263 K/MM3 (134-434); RDW 18.6 % (11.6-15.6); WHITE BLOOD COUNT 5.4 K/mm3 (4.0-10.0)
[2019-02-13] MEDS ORDERED: METHADONE (DETOX) 20 MG, METHADONE (DETOX) 5 MG PO ONE (10:00)
[2019-02-13 10:01] LABS: ALBUMIN 3.6 g/dl (3.4-5.0); BILIRUBIN,TOTAL 0.3 mg/dL (0.2-1); CALCIUM 8.8 mg/dL (8.5-10.1); CREATININE 1.1 mg/dL (0.55-1.3); POTASSIUM 4.6 mmol/L (3.5-5.1)
[2019-02-13] MEDS: METHOCARBAMOL 500 MG TABLET PO SCH ×4 (10:08→21:42)
[2019-02-13] MEDS: PRENATAL VITAMINS W/ FOLIC ACID TABLET (FP) PO SCH (10:08)
[2019-02-13] MEDS ORDERED: METHADONE HCL 5 MG TABLET (FOR DETOX USE ONLY) ONE (10:09)
[2019-02-13] MEDS: FLUTICASONE PROP 0.05% 16 GM NASAL SPRAY NS SCH ×2 (10:10→21:45)
[2019-02-13] MEDS ORDERED: METHADONE HCL 10 MG TABLET (FOR DETOX USE ONLY) ONE (10:10)
[2019-02-13] MEDS: BUDESONIDE/FORMETEROL FUMARATE 80/4.5 mcg INHALER IH SCH ×2 (10:11→21:45)
[2019-02-13] MEDS: NICOTINE 14 MG/24 HOURS TOPICAL PATCH TD SCH (10:11)
--- NOTE | 2019-02-13 11:30 | PN ---
BHS COWS - Scale Resting Pulse: 0= [place] 80 or Below Sweatin= Chills/Flushing Restless Observation: 1= Difficult to Sit Still Pupil Size: 0= Normal to Room Light Bone or Joint Aches: 2= Severe Diffuse Aches Runny Nose/ Eye Tearin= Runny Nose/Eyes GI Upset > 30mins: 2= Nausea/Diarrhea Tremor Observation of Outstretched Hands: 2= Slight Tremor Visible Yawning Observation: 2= >3x During Session Anxiety or Irritability: 2=Irritable/Anxious Goose Flesh Skin: 3=Piloerection COWS Score: 17 BHS Progress Note (SOAP) Subjective: chills goosebumps body aches teary eyes sweats shakes anxiety Objective: 02/13/19 11:30 Vital Signs Temperature 98.4 F 02/13/19 09:26 Pulse Rate 52 L 02/13/19 09:26 Respiratory Rate 16 02/13/19 09:26 Blood Pressure 110/52 L 02/13/19 09:26 O2 Sat by Pulse Oximetry (%) Laboratory Tests 02/13/19 02/13/19 07:50 07:50 WBC 5.4 RBC 4.90 Hgb 12.6 Hct 39.8 D MCV 81.2 MCH 25.7 MCHC 31.6 L RDW 18.6 H Plt Count 263 D MPV 10.5 D Sodium 138 Potassium 4.6 Chloride 106 Carbon Dioxide 27 Anion Gap 6 L BUN 16.0 Creatinine 1.1 Est GFR (CKD-EPI)AfAm 74.28 Est GFR (CKD-EPI)NonAf 64.09 Random Glucose 83 Calcium 8.8 Total Bilirubin 0.3 AST 14 L ALT 16 Alkaline Phosphatase 72 Total Protein 7.0 Albumin 3.6 labs noted aaox3 ambulating no acute distress Assessment: 02/13/19 11:30 withdrawal sx Plan: continue detox increase fluids acitifed prn valium prn roboxin prn
[2019-02-13] MEDS: hydrOXYzine PAMOATE 50 MG CAPSULE (FP) PO PRN ×3 (11:51→20:25)
[2019-02-13] MEDS ORDERED: FLU VACCINE QUAD 60 MCG/0.5 ML (MDV 19-20) IM ONE (12:00)
[2019-02-13] MEDS: NICOTINE POLACRILEX 2 MG GUM BUC PRN (17:09)
[2019-02-13] MEDS: THIAMINE HCL 100 MG TABLET (FP) PO SCH (21:42)
[2019-02-13] MEDS: MELATONIN 5 MG TABLETS PO PRN (21:43)
[2019-02-13] MEDS: ONDANSETRON *ODT* 4 MG TABLET SL PRN (22:19)
[2019-02-14] MEDS: hydrOXYzine PAMOATE 50 MG CAPSULE (FP) PO PRN ×4 (02:21→21:15)
[2019-02-14] MEDS: BISMUTH SUBSALICYLATE 262 MG/15 ML BTL PO PRN (03:11)
[2019-02-14] MEDS: cloNIDine HCL 0.1 MG TABLET PO PRN (03:11)
[2019-02-14] MEDS: diazePAM 5 MG TABLET PO PRN ×4 (05:30→20:38)
[2019-02-14] MEDS: ONDANSETRON *ODT* 4 MG TABLET SL PRN ×3 (05:31→21:49)
[2019-02-14] MEDS ORDERED: METHADONE HCL 10 MG TABLET (FOR DETOX USE ONLY) PO ONE (10:00)
[2019-02-14] MEDS ORDERED: COLLOIDAL OATMEAL 1 BAR EACH TP ONE (10:00)
[2019-02-14] MEDS: METHOCARBAMOL 500 MG TABLET PO SCH ×4 (10:11→21:46)
[2019-02-14] MEDS: PRENATAL VITAMINS W/ FOLIC ACID TABLET (FP) PO SCH (10:11)
[2019-02-14] MEDS: FLUTICASONE PROP 0.05% 16 GM NASAL SPRAY NS SCH ×2 (10:11→22:25)
[2019-02-14] MEDS: BUDESONIDE/FORMETEROL FUMARATE 80/4.5 mcg INHALER IH SCH ×2 (10:12→22:25)
[2019-02-14] MEDS: NICOTINE 14 MG/24 HOURS TOPICAL PATCH TD SCH (10:12)
[2019-02-14] MEDS: ACETAMINOPHEN 325 MG TABLET (FP) PO PRN (11:32)
--- NOTE | 2019-02-14 13:53 | PN ---
BHS COWS - Scale Resting Pulse: 0= [place] 80 or Below Sweatin= Chills/Flushing Restless Observation: 1= Difficult to Sit Still Pupil Size: 0= Normal to Room Light Bone or Joint Aches: 2= Severe Diffuse Aches Runny Nose/ Eye Tearin= Runny Nose/Eyes GI Upset > 30mins: 1= Stomach Cramp Tremor Observation of Outstretched Hands: 2= Slight Tremor Visible Yawning Observation: 2= >3x During Session Anxiety or Irritability: 2=Irritable/Anxious Goose Flesh Skin: 0=Smooth Skin COWS Score: 13 BHS Progress Note (SOAP) Subjective: sweats i need aveeno soap my skin is itchy interrupted sleep anxiety Objective: 02/14/19 13:50 Vital Signs Temperature 101.5 F H 02/14/19 13:11 Pulse Rate 83 02/14/19 13:11 Respiratory Rate 16 02/14/19 13:11 Blood Pressure 113/62 02/14/19 13:11 O2 Sat by Pulse Oximetry (%) Laboratory Tests 02/13/19 02/13/19 02/13/19 07:50 07:50 07:50 WBC 5.4 RBC 4.90 Hgb 12.6 Hct 39.8 D MCV 81.2 MCH 25.7 MCHC 31.6 L RDW 18.6 H Plt Count 263 D MPV 10.5 D Sodium 138 Potassium 4.6 Chloride 106 Carbon Dioxide 27 Anion Gap 6 L BUN 16.0 Creatinine 1.1 Est GFR (CKD-EPI)AfAm 74.28 Est GFR (CKD-EPI)NonAf 64.09 Random Glucose 83 Calcium 8.8 Total Bilirubin 0.3 AST 14 L ALT 16 Alkaline Phosphatase 72 Total Protein 7.0 Albumin 3.6 RPR Titer Nonreactive labs noted aaox3 ambulating no acute distress Assessment: 02/14/19 13:51 withdrawal sx Plan: continue detox increase fluids aveeno soap x one
[2019-02-14] MEDS: THIAMINE HCL 100 MG TABLET (FP) PO SCH (21:47)
[2019-02-14] MEDS: MELATONIN 5 MG TABLETS PO PRN (21:47)
[2019-02-15] MEDS: diazePAM 5 MG TABLET PO PRN ×5 (03:19→23:22)
[2019-02-15] MEDS: hydrOXYzine PAMOATE 50 MG CAPSULE (FP) PO PRN ×4 (05:29→22:25)
[2019-02-15] MEDS: NICOTINE POLACRILEX 2 MG GUM BUC PRN ×2 (05:48→10:07)
[2019-02-15] MEDS ORDERED: METHADONE HCL 10 MG TABLET (FOR DETOX USE ONLY) ONE (09:14)
[2019-02-15] MEDS ORDERED: METHADONE HCL 5 MG TABLET (FOR DETOX USE ONLY) ONE (09:14)
[2019-02-15] MEDS ORDERED: METHADONE (DETOX) 10 MG, METHADONE (DETOX) 5 MG PO ONE (10:00)
[2019-02-15] MEDS: FLUTICASONE PROP 0.05% 16 GM NASAL SPRAY NS SCH ×2 (10:03→22:27)
[2019-02-15] MEDS: BUDESONIDE/FORMETEROL FUMARATE 80/4.5 mcg INHALER IH SCH ×2 (10:04→22:27)
[2019-02-15] MEDS: METHOCARBAMOL 500 MG TABLET PO SCH ×4 (10:04→22:25)
[2019-02-15] MEDS: NICOTINE 14 MG/24 HOURS TOPICAL PATCH TD SCH (10:04)
[2019-02-15] MEDS: PRENATAL VITAMINS W/ FOLIC ACID TABLET (FP) PO SCH (10:04)
--- NOTE | 2019-02-15 11:23 | PN ---
BHS COWS - Scale Resting Pulse: 0= [place] 80 or Below Sweatin= Chills/Flushing Restless Observation: 1= Difficult to Sit Still Pupil Size: 0= Normal to Room Light Bone or Joint Aches: 2= Severe Diffuse Aches Runny Nose/ Eye Tearin= Runny Nose/Eyes GI Upset > 30mins: 1= Stomach Cramp Tremor Observation of Outstretched Hands: 2= Slight Tremor Visible Yawning Observation: 2= >3x During Session Anxiety or Irritability: 2=Irritable/Anxious Goose Flesh Skin: 0=Smooth Skin COWS Score: 13 BHS Progress Note (SOAP) Subjective: sweats shakes irritable interrupted sleep agitation Objective: 02/15/19 11:22 Vital Signs Temperature 98.1 F 02/15/19 09:59 Pulse Rate 73 02/15/19 09:59 Respiratory Rate 18 02/15/19 09:59 Blood Pressure 117/57 L 02/15/19 09:59 O2 Sat by Pulse Oximetry (%) Laboratory Tests 02/13/19 02/13/19 02/13/19 07:50 07:50 07:50 WBC 5.4 RBC 4.90 Hgb 12.6 Hct 39.8 D MCV 81.2 MCH 25.7 MCHC 31.6 L RDW 18.6 H Plt Count 263 D MPV 10.5 D Sodium 138 Potassium 4.6 Chloride 106 Carbon Dioxide 27 Anion Gap 6 L BUN 16.0 Creatinine 1.1 Est GFR (CKD-EPI)AfAm 74.28 Est GFR (CKD-EPI)NonAf 64.09 Random Glucose 83 Calcium 8.8 Total Bilirubin 0.3 AST 14 L ALT 16 Alkaline Phosphatase 72 Total Protein 7.0 Albumin 3.6 RPR Titer Nonreactive labs pending aaox3 ambulating no acute distress Assessment: 02/15/19 11:23 withdrawal sx Plan: continue detox increase fluids
[2019-02-15] MEDS: IBUPROFEN 400 MG TABLET (FP) PO PRN (13:42)
[2019-02-15] MEDS: BISMUTH SUBSALICYLATE 262 MG/15 ML BTL PO PRN (13:42)
--- NOTE | 2019-02-15 14:52 | PN ---
[facility] Progress Note Note: Vital Signs Temperature 99.0 F 02/15/19 14:28 Pulse Rate 83 02/15/19 14:28 Respiratory Rate 19 02/15/19 14:28 Blood Pressure 147/67 02/15/19 14:28 O2 Sat by Pulse Oximetry (%) patient requested HIV screen HIV test ordered continue to monitor
--- NOTE | 2019-02-15 15:24 | PN ---
[facility] Progress Note Note: Patient reports experiencing difficulty to sleep despite taking [id number] mg/ hs. Hypnotic properties of Belsomra discussed with patient and she agreed to try it
[2019-02-15] MEDS: ACETAMINOPHEN 325 MG TABLET (FP) PO PRN (17:48)
[2019-02-15] MEDS: ALBUTEROL SO4 8 GM HFA INHALER IH PRN (18:14)
[2019-02-15] MEDS ORDERED: SUVOREXANT 15 MG TABLET PO PRN (22:00)
[2019-02-15] MEDS: THIAMINE HCL 100 MG TABLET (FP) PO SCH (22:28)
[2019-02-16] MEDS: hydrOXYzine PAMOATE 50 MG CAPSULE (FP) PO PRN ×4 (02:35→17:02)
[2019-02-16] MEDS: diazePAM 5 MG TABLET PO PRN ×4 (06:09→20:39)
[2019-02-16] MEDS: NICOTINE POLACRILEX 2 MG GUM BUC PRN (06:11)
[2019-02-16] MEDS: ONDANSETRON *ODT* 4 MG TABLET SL PRN (06:13)
[2019-02-16] MEDS ORDERED: METHADONE HCL 10 MG TABLET (FOR DETOX USE ONLY) PO ONE (10:00)
[2019-02-16] MEDS: BUDESONIDE/FORMETEROL FUMARATE 80/4.5 mcg INHALER IH SCH ×2 (10:05→21:58)
[2019-02-16] MEDS: PRENATAL VITAMINS W/ FOLIC ACID TABLET (FP) PO SCH (10:05)
[2019-02-16] MEDS: FLUTICASONE PROP 0.05% 16 GM NASAL SPRAY NS SCH ×2 (10:05→21:59)
[2019-02-16] MEDS: METHOCARBAMOL 500 MG TABLET PO SCH ×4 (10:05→21:57)
[2019-02-16] MEDS: NICOTINE 14 MG/24 HOURS TOPICAL PATCH TD SCH (10:06)
[2019-02-16] MEDS ORDERED: AMMONIUM LACTATE 12% LOTION 225 GM BOTTLE TP PRN (10:14)
--- NOTE | 2019-02-16 13:10 | DS ---
[facility] Detox Discharge Summary Admission Date: 02/12/19 Discharge Date: 02/16/19 - History Present History: Opioid Dependence - Physical Exam Results Vital Signs: Vital Signs Temperature 98.2 F 02/16/19 09:37 Pulse Rate 82 02/16/19 09:37 Respiratory Rate 18 02/16/19 09:37 Blood Pressure 132/88 02/16/19 09:37 O2 Sat by Pulse Oximetry (%) Pertinent Admission Physical Exam Findings: pt arrived in withdrawals Vital Signs Temperature 98.2 F 02/16/19 09:37 Pulse Rate 82 02/16/19 09:37 Respiratory Rate 18 02/16/19 09:37 Blood Pressure 132/88 02/16/19 09:37 O2 Sat by Pulse Oximetry (%) Laboratory Tests 02/13/19 02/13/19 02/13/19 07:50 07:50 07:50 WBC 5.4 RBC 4.90 Hgb 12.6 Hct 39.8 D MCV 81.2 MCH 25.7 MCHC 31.6 L RDW 18.6 H Plt Count 263 D MPV 10.5 D Sodium 138 Potassium 4.6 Chloride 106 Carbon Dioxide 27 Anion Gap 6 L BUN 16.0 Creatinine 1.1 Est GFR (CKD-EPI)AfAm 74.28 Est GFR (CKD-EPI)NonAf 64.09 Random Glucose 83 Calcium 8.8 Total Bilirubin 0.3 AST 14 L ALT 16 Alkaline Phosphatase 72 Total Protein 7.0 Albumin 3.6 RPR Titer Nonreactive HIV 1&2 Antibody Screen HIV P24 Antigen 02/16/19 08:15 WBC RBC Hgb Hct MCV MCH MCHC RDW Plt Count MPV Sodium Potassium Chloride Carbon Dioxide Anion Gap BUN Creatinine Est GFR (CKD-EPI)AfAm Est GFR (CKD-EPI)NonAf Random Glucose Calcium Total Bilirubin AST ALT Alkaline Phosphatase Total Protein Albumin RPR Titer HIV 1&2 Antibody Screen Negative HIV P24 Antigen Negative today pt is aaox3 ambulating no acute distress - Treatment Hospital Course: Detox Protocol Followed, Detoxed Safely, Responded well, Discharged Condition Good, Rehab Referral Accepted Patient has Accepted a Rehab Referral to: referred to inpatient rehab; [facility] - Medication Discharge Medications: Ambulatory Orders Ibuprofen [Motrin -] 800 mg PO Q6H #30 tablet 01/28/18 hydrOXYzine PAMOATE [Vistaril -] 50 mg PO Q6H PRN #30 capsule 01/31/18 Albuterol Sulfate Inhaler - [Ventolin HFA Inhaler -] 2 inhaler PO Q4HWA PRN #1 inhaler 10/25/18 Budesonide/Formeterol Fumarate [SYMBICORT 80/4.5mcg -] 1 inh PO BID #1 inhaler 10/25/18 Fluticasone Prop 0.05% Nasal [Flonase -] 1 spray NS BID #1 spray.pump 10/25/18 - Diagnosis (1) Cannabis abuse Current Visit: Yes Status: Chronic (2) Cocaine abuse Current Visit: Yes Status: Chronic (3) Substance induced mood disorder Current Visit: Yes Status: Acute (4) Substance-induced sleep disorder Current Visit: Yes Status: Acute (5) Anxiety and depression Current Visit: No Status: Acute (6) Insomnia Current Visit: Yes Status: Chronic Qualifiers: Insomnia type: primary Qualified Code(s): F51.01 - Primary insomnia (7) Opioid dependence with withdrawal Current Visit: Yes Status: Acute (8) Substance induced mood disorder Current Visit: No Status: Acute (9) Substance-induced anxiety disorder Current Visit: No Status: Acute (10) Asthma Current Visit: No Status: Chronic Qualifiers: Asthma severity: unspecified severity Asthma persistence: unspecified Asthma complication type: unspecified Qualified Code(s): J45.909 - Unspecified asthma, uncomplicated (11) Nicotine dependence Current Visit: Yes Status: Chronic Qualifiers: Nicotine product type: cigarettes Substance use status: uncomplicated Qualified Code(s): F17.210 - Nicotine dependence, cigarettes, uncomplicated (12) Substance-induced sleep disorder Current Visit: No Status: Chronic - AMA Did Patient Leave Against Medical Advice: No
[2019-02-16] MEDS: ALBUTEROL SO4 8 GM HFA INHALER IH PRN (13:39)
--- NOTE | 2019-02-16 13:53 | PN ---
BHS COWS - Scale Resting Pulse: 1= [place] 81-100 Sweatin= Chills/Flushing Restless Observation: 1= Difficult to Sit Still Pupil Size: 0= Normal to Room Light Bone or Joint Aches: 2= Severe Diffuse Aches Runny Nose/ Eye Tearin= Nasal Congestion GI Upset > 30mins: 0= None Tremor Observation of Outstretched Hands: 0= None Yawning Observation: 0= None Anxiety or Irritability: 1=Feels Anxious/Irritable Goose Flesh Skin: 0=Smooth Skin COWS Score: 7 BHS Progress Note (SOAP) Subjective: anxiety sweats chills Objective: 02/16/19 13:52 Vital Signs Temperature 98.2 F 02/16/19 09:37 Pulse Rate 82 02/16/19 09:37 Respiratory Rate 18 02/16/19 09:37 Blood Pressure 132/88 02/16/19 09:37 O2 Sat by Pulse Oximetry (%) aaox3 ambulating no acute distress Assessment: 02/16/19 13:53 withdrawals Plan: continue detox d/c in am
[2019-02-16] MEDS: BISMUTH SUBSALICYLATE 262 MG/15 ML BTL PO PRN (17:04)
[2019-02-16] MEDS: THIAMINE HCL 100 MG TABLET (FP) PO SCH (21:57)
[2019-02-17] MEDS: diazePAM 5 MG TABLET PO PRN ×2 (00:52→05:46)
[2019-02-17] MEDS: hydrOXYzine PAMOATE 50 MG CAPSULE (FP) PO PRN ×2 (00:52→05:46)
[2019-02-17] MEDS: ALBUTEROL SO4 8 GM HFA INHALER IH PRN (05:47)
[2019-02-17] MEDS: NICOTINE POLACRILEX 2 MG GUM BUC PRN (05:51)
[2019-02-17] MEDS ORDERED: METHADONE HCL 5 MG TABLET (FOR DETOX USE ONLY) PO ONE (06:00)
[2019-02-17 07:13] VITALS: BP 117/72; PULSE 68; TEMP 97.3
== END 2019-02-17 06:34 | disposition home or self-care (01) | DRG 773 ==
LOC: YASAS 12:48 → Y6N 15:25
PROVIDERS: ADMIT Allergy & Immunology; ATTEND Allergy & Immunology
PROC: HZ2ZZZZ Detoxification Services for Substance Abuse Treatment (ICD-10-PCS; principal; 2019-02-12)
DX: F11.23 Opioid dependence with withdrawal (principal); F10.20 Alcohol dependence, uncomplicated; F14.10 Cocaine abuse, uncomplicated; F12.10 Cannabis abuse, uncomplicated; F17.210 Nicotine dependence, cigarettes, uncomplicated; F19.280 Other psychoactive substance dependence with psychoactive substance-induced anxiety disorder; F19.282 Other psychoactive substance dependence with psychoactive substance-induced sleep disorder; F19.24 Other psychoactive substance dependence with psychoactive substance-induced mood disorder; F41.8 Other specified anxiety disorders; F32.9 Major depressive disorder, single episode, unspecified; J45.909 Unspecified asthma, uncomplicated; K80.20 Calculus of gallbladder without cholecystitis without obstruction; R01.1 Cardiac murmur, unspecified
CPT/HCPCS: 36415; 80053; 85027; 86593; 87389; J0735; Q0162

== ENCOUNTER 2019-02-17 09:06 | Inpatient (IN) | payer OTHER ==
[2019-02-17 09:34] VITALS: BMI 30.4
--- NOTE | 2019-02-17 10:41 | HP ---
COWS - Scale Resting Pulse: 0= [place] 80 or Below Sweatin= Chills/Flushing Restless Observation: 1= Difficult to Sit Still Pupil Size: 0= Normal to Room Light Bone or Joint Aches: 1= Mild Discomfort Runny Nose/ Eye Tearin= Nasal Congestion GI Upset > 30mins: 2= Nausea/Diarrhea Tremor Observation: 1= Tremor [place], Not Seen Yawning Observation: 1= 1-2x During Session Anxiety or Irritability: 1=Feels Anxious/Irritable Goose Flesh Skin: 0=Smooth Skin COWS Score: 9 Admitting History and Physical - Admission History Source: Patient - Past Medical History ...LMP: 01/20/19 - Social History Usual Living Arrangement: Yes: Other (homeless - lives here and there with family or friends) Admission ROS [facility] Chief Complaint: I still feel sick - I was supposed to go to rehab at [facility] but they never came to pick me up so I'm staying here for rehab but I want to get into a methadone program too Allergies/Adverse Reactions: Allergies Allergy/AdvReac Type Severity Reaction Status Date / Time No Known Allergies Allergy Verified 02/17/19 09:20 History of Present Illness: 38 yo woman completed detox from opiates at [facility] 02/12-02/17/19 - was supposed to go to [facility] rehab today but was never picked up so is going to our rehab. She is still having withdrawal symptoms (COWS=9) and asking for methadone - she hopes to get into a methadone program upon discharge. No overdose history or seizures but has had black outs. For now will try with adjuvant medications for symptom management and evaluate ongoing. Exam Limitations: Clinical Condition - Ebola screening Have you traveled outside of the country in the last 21 days: No Have you had contact with anyone from an Ebola affected area: No - Review of Systems Constitutional: Chills, Malaise, Night Sweats, Changes in sleep EENT: reports: Tearing, Nose Congestion Respiratory: reports: No Symptoms reported Cardiac: reports: No Symptoms Reported GI: reports: Diarrhea, Nausea, Poor Appetite : reports: Frequency Musculoskeletal: reports: Back Pain, Muscle Pain Integumentary: reports: No Symptoms Reported Neuro: reports: Headache, Tremors, Weakness Endocrine: reports: No Symptoms Reported Hematology: reports: No Symptoms Reported Psychiatric: reports: Judgement Intact, Mood/Affect Appropiate, Orientated x3, Anxious Other Systems: Reviewed and Negative Patient History - Patient Medical History Hx Anemia: No Hx Asthma: Yes Hx Chronic Obstructive Pulmonary Disease (COPD): No Hx Cancer: No Hx Cardiac Disorders: Yes ((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)) Hx Congestive Heart Failure: No Hx Hypertension: No Hx Hypercholesterolemia: No Hx Pacemaker: No HX Cerebrovascular Accident: No Hx Seizures: No Hx Dementia: No Hx Diabetes: No Hx Gastrointestinal Disorders: Yes (gallstones) Hx Liver Disease: Yes (liver nodules - needs biopsy) Hx Genitourinary Disorders: No Hx Sexually Transmitted Disorders: No Hx Renal Disease (ESRD): No Hx Thyroid Disease: No Hx Human Immunodeficiency Virus (HIV): (last 2018 negative) Hx Hepatitis C: No Hx Depression: Yes (never hospitalized, hx zoloft; with anxiety and insmonia) Hx Suicide Attempt: No Hx Bipolar Disorder: Yes Hx Schizophrenia: No - Patient Surgical History Past Surgical History: Yes Hx Neurologic Surgery: No Hx Cataract Extraction: No Hx Cardiac Surgery: No Hx Lung Surgery: No Hx Breast Surgery: No Hx Breast Biopsy: No Hx Abdominal Surgery: No Hx Appendectomy: No Hx Cholecystectomy: No Hx Genitourinary Surgery: No Hx Section: Yes (6 SECTIONS LAST 09/2014) Hx Orthopedic Surgery: No Anesthesia Reaction: No - PPD History Previous Implant?: Yes Documented Results: Positive w/o proof Implanted On Prior [facility] Admission?: No Date: 10/23/18 (cxr normal) PPD to be Administered?: No - Reproductive History Patient is a Female of Child Bearing Age (11 -55 yrs old): Yes Last Menstrual Period: 01/20/19 - Smoking Cessation Smoking history: Current every day smoker Have you smoked in the past 12 months: Yes Aproximately how many cigarettes per day: 12 Cigars Per Day: 0 Hx Chewing Tobacco Use: No Initiated information on smoking cessation: Yes 'Breaking Loose' booklet given: 02/17/19 (give on floor) - Substance & Tx. History Hx Alcohol Use: Yes (social) Hx Substance Use: Yes Substance Use Type: Cocaine, Heroin, Marijuana Hx Substance Use Treatment: Yes (detox, rehab) - Substances abused Heroin Substance route: Injection Frequency: Daily Amount used: 14 bags Age of first use: 36 Date of last use: 02/12/19 Cocaine Substance route: Injection Frequency: 1-2 times per week Amount used: 2 bags Age of first use: 20 Date of last use: 02/11/19 Alcohol Substance route: Oral Frequency: 1-2 times per week Amount used: 1 pint Age of first use: 20 Date of last use: 02/10/19 Marijuana/Hashish Substance route: Smoking Frequency: 1-3 times last 30 days Amount used: couple of joints Age of first use: 17 Date of last use: 02/10/19 Admission Physical Exam S - Vital Signs Vital Signs: Vital Signs - 24 hr 02/17/19 09:22 Temperature 97.2 F L Pulse Rate 72 Respiratory 18 Rate Blood Pressure 117/58 L - Physical General Appearance: Yes: Nourished, Appropriately Dressed, Moderate Distress, Anxious HEENTM: Yes: Hearing grossly Normal, Normocephalic, Normal Voice Respiratory: Yes: Normal Breath Sounds, No Respiratory Distress Neck: Yes: No masses,lesions,Nodules, Supple Breast: Yes: Breast Exam Deferred Cardiology: Yes: Regular Rhythm, Regular Rate Abdominal: Yes: Soft Genitourinary: Yes: Frequency Back: Yes: Normal Inspection Musculoskeletal: Yes: full range of Motion, Gait Steady Extremities: Yes: Normal Inspection, Non-Tender Neurological: Yes: Fully Oriented, Alert, Normal Mood/Affect, Normal Response Integumentary: Yes: Normal Color, Warm, Track Barr, Other (thickened scarring both antecubital fossas due to injection use) Lymphatic: Yes: Within Normal Limits - Diagnostic (1) Opioid dependence with withdrawal Current Visit: Yes Status: Chronic (2) Cannabis abuse Current Visit: Yes Status: Chronic (3) Cocaine abuse Current Visit: Yes Status: Chronic (4) Nicotine dependence Current Visit: Yes Status: Chronic Qualifiers: Nicotine product type: cigarettes Substance use status: uncomplicated Qualified Code(s): F17.210 - Nicotine dependence, cigarettes, uncomplicated (5) Asthma Current Visit: Yes Status: Chronic Qualifiers: Asthma severity: unspecified severity Asthma persistence: unspecified Asthma complication type: unspecified Qualified Code(s): J45.909 - Unspecified asthma, uncomplicated (6) Asymptomatic gallstones Current Visit: Yes Status: Chronic Breathalyzer - Breathalyzer Breathalyzer: 0 Urine Drug Screen - Test Device Lot number: [id number] Expiration date: 09/29/20 - Control Is test valid?: Yes - Results Drug screen NEGATIVE: No Urine drug screen results: MTD-Methadone, BZO-Benzodiazepines Inpatient Rehab Admission - Rehab Decision to Admit Inpatient rehab admission?: Yes - Initial Determination Are CD services needed?: Yes Free of communicable disease: Yes Not in need of hospitalization: Yes - Rehab Admission Criteria Previous failed treatment: Yes Poor recovery environment: Yes Comorbidities: Yes Lacks judgement: Yes Patient is meeting Inpatient Rehab admission criteria:: Yes (homeless )
[2019-02-17] MEDS ORDERED: IBUPROFEN 400 MG TABLET (FP) PO PRN (11:01)
[2019-02-17] MEDS ORDERED: P-EPHED 60MG/TRIPROLIDI 2.5MG TABLET PO PRN (11:01)
[2019-02-17] MEDS ORDERED: MENTHOL/PHENOL 1 EACH UD MM PRN (11:01)
[2019-02-17] MEDS ORDERED: guaiFENesin 200 MG/10 ML 10 ML UNIT-DOSE CUPS PO PRN (11:01)
[2019-02-17] MEDS ORDERED: LOPERAMIDE HCL 2 MG CAPSULE PO PRN (11:01)
[2019-02-17] MEDS ORDERED: MAG HYDROX/AL HYDROX/SIMETH 30 ML UNIT-DOSE CUP PO PRN (11:01)
[2019-02-17] MEDS ORDERED: METHOCARBAMOL 500 MG TABLET PO PRN (11:09)
[2019-02-17] MEDS ORDERED: ALBUTEROL SO4 8 GM HFA INHALER IH PRN (11:17)
[2019-02-17] MEDS: NICOTINE 21 MG/24 HOURS TOPICAL PATCH TD SCH (14:58)
[2019-02-17] MEDS: FLUTICASONE PROP 0.05% 16 GM NASAL SPRAY NS SCH ×2 (14:58→22:42)
[2019-02-17] MEDS: BUDESONIDE/FORMETEROL FUMARATE 80/4.5 mcg INHALER IH SCH ×2 (14:59→22:42)
[2019-02-17] MEDS: hydrOXYzine PAMOATE 50 MG CAPSULE (FP) PO PRN ×3 (15:25→23:33)
[2019-02-17] MEDS ORDERED: SUVOREXANT 20 MG TABLET PO ONE (22:00)
[2019-02-17] MEDS: THIAMINE HCL 100 MG TABLET (FP) PO SCH (22:42)
[2019-02-17] MEDS ORDERED: MELATONIN 5 MG TABLETS PO ONE (23:29)
[2019-02-18] MEDS: NICOTINE 21 MG/24 HOURS TOPICAL PATCH TD SCH (10:17)
[2019-02-18] MEDS: PRENATAL VITAMINS W/ FOLIC ACID TABLET (FP) PO SCH (10:17)
[2019-02-18] MEDS: BUDESONIDE/FORMETEROL FUMARATE 80/4.5 mcg INHALER IH SCH ×2 (10:18→21:15)
[2019-02-18] MEDS: FLUTICASONE PROP 0.05% 16 GM NASAL SPRAY NS SCH ×2 (10:18→21:17)
[2019-02-18] MEDS: hydrOXYzine PAMOATE 50 MG CAPSULE (FP) PO PRN ×3 (10:20→19:30)
--- NOTE | 2019-02-18 11:31 | PN ---
BHS COWS - Scale Resting Pulse: 0= [place] 80 or Below Sweatin= Chills/Flushing Restless Observation: 3= Extraneous Movement Pupil Size: 0= Normal to Room Light Bone or Joint Aches: 0= None Runny Nose/ Eye Tearin= None GI Upset > 30mins: 0= None Tremor Observation of Outstretched Hands: 0= None Yawning Observation: 0= None Anxiety or Irritability: 2=Irritable/Anxious Goose Flesh Skin: 0=Smooth Skin COWS Score: 6 BHS Progress Note (SOAP) Subjective: Back hurts, anxious, tremor, chills, sweating, cramping, poor sleep. Patient requesting methadone and valium stating that she's only receiving vistaril. As per chart review, patient already completed detox and readmitted for Rehab. Objective: 02/18/19 11:31 Last Vital Signs Temp Pulse Resp BP Pulse Ox 98.1 F 74 16 109/61 02/18/19 09:31 02/18/19 09:31 02/18/19 09:31 02/18/19 09:31 Lab results from 01/2019 reviewed: CBC/CMP/RPR Assessment: 02/18/19 11:33 Withdrawal symptoms Plan: Continue detox Encouraged PO water intake [facility]
[2019-02-18] MEDS ORDERED: FLU VACCINE QUAD 60 MCG/0.5 ML (MDV 19-20) IM ONE (12:00)
--- NOTE | 2019-02-18 14:50 | DS ---
[facility] Detox Discharge Summary Admission Date: 02/17/19 Discharge Date: 02/18/19 - History Present History: Opioid Dependence Additional Comments: Patient completed detox successfully and accepted rehab admission. Pertinent Past History: Opioid dependence Cocaine abuse Cannabis abuse Alcohol abuse Nicotine dependence History of positive PPD Asthma Liver nodules (needs biopsy), encouraged to follow up with PCP ATIYA Heart murmur (congenital) - Physical Exam Results Vital Signs: Vital Signs Temperature 99.9 F H 02/18/19 14:12 Pulse Rate 91 H 02/18/19 14:12 Respiratory Rate 18 02/18/19 14:12 Blood Pressure 111/57 L 02/18/19 14:12 O2 Sat by Pulse Oximetry (%) Pertinent Admission Physical Exam Findings: Withdrawal sxs Labs reviewed from 02/13/19 - Treatment Hospital Course: Detox Protocol Followed, Detoxed Safely, Responded well, Discharged Condition Good, Rehab Referral Accepted - Medication Discharge Medications: Ambulatory Orders Ibuprofen [Motrin -] 800 mg PO Q6H #30 tablet 01/28/18 hydrOXYzine PAMOATE [Vistaril -] 50 mg PO Q6H PRN #30 capsule 01/31/18 Albuterol Sulfate Inhaler - [Ventolin HFA Inhaler -] 2 inhaler PO Q4HWA PRN #1 inhaler 10/25/18 Budesonide/Formeterol Fumarate [SYMBICORT 80/4.5mcg -] 1 inh PO BID #1 inhaler 10/25/18 Fluticasone Prop 0.05% Nasal [Flonase -] 1 spray NS BID #1 spray.pump 10/25/18 - Diagnosis (1) Alcohol abuse Current Visit: Yes Status: Acute (2) History of positive PPD Current Visit: Yes Status: Chronic (3) Nodule on liver Current Visit: Yes Status: Acute (4) Asthma Current Visit: Yes Status: Chronic Qualifiers: Asthma severity: unspecified severity Asthma persistence: unspecified Asthma complication type: unspecified Qualified Code(s): J45.909 - Unspecified asthma, uncomplicated (5) Cannabis abuse Current Visit: Yes Status: Chronic (6) Cocaine abuse Current Visit: Yes Status: Chronic (7) Nicotine dependence Current Visit: Yes Status: Chronic Qualifiers: Nicotine product type: cigarettes Substance use status: uncomplicated Qualified Code(s): F17.210 - Nicotine dependence, cigarettes, uncomplicated (8) Opioid dependence with withdrawal Current Visit: Yes Status: Acute - AMA Did Patient Leave Against Medical Advice: No (Patient accepted admission to [facility])
[2019-02-18] MEDS ORDERED: PT OWN MED DRAWER 7, Y5N ONE ×2 (15:53→21:16)
[2019-02-18] MEDS: cloNIDine HCL 0.1 MG TABLET PO PRN (17:23)
[2019-02-18] MEDS: ONDANSETRON *ODT* 4 MG TABLET SL PRN (17:25)
[2019-02-18] MEDS: ACETAMINOPHEN 325 MG TABLET (FP) PO PRN (17:25)
[2019-02-18] MEDS: MELATONIN 5 MG TABLETS PO PRN (21:16)
[2019-02-18] MEDS: COLLOIDAL OATMEAL 1 BAR EACH TP PRN (21:16)
[2019-02-18] MEDS: THIAMINE HCL 100 MG TABLET (FP) PO SCH (21:16)
[2019-02-18] MEDS: NICOTINE POLACRILEX 4 MG GUM BUC PRN (21:19)
[2019-02-19] MEDS: hydrOXYzine PAMOATE 50 MG CAPSULE (FP) PO PRN ×3 (06:40→21:21)
[2019-02-19] MEDS: ONDANSETRON *ODT* 4 MG TABLET SL PRN (06:40)
[2019-02-19] MEDS: cloNIDine HCL 0.1 MG TABLET PO PRN ×2 (07:20→19:16)
[2019-02-19] MEDS ORDERED: PT OWN MED DRAWER 7, Y5N ONE (08:34)
[2019-02-19] MEDS: BUDESONIDE/FORMETEROL FUMARATE 80/4.5 mcg INHALER IH SCH ×2 (09:52→21:26)
[2019-02-19] MEDS: FLUTICASONE PROP 0.05% 16 GM NASAL SPRAY NS SCH ×2 (09:52→21:23)
[2019-02-19] MEDS: PRENATAL VITAMINS W/ FOLIC ACID TABLET (FP) PO SCH (09:52)
[2019-02-19] MEDS: NICOTINE 21 MG/24 HOURS TOPICAL PATCH TD SCH (09:52)
[2019-02-19] MEDS: IBUPROFEN 400 MG TABLET (FP) PO PRN (09:55)
[2019-02-19] MEDS ORDERED: BUPRENORPHINE/NALOXONE 2 MG/0.5 MG FILM PACKET SL ONE (14:12)
[2019-02-19] MEDS ORDERED: CYCLOBENZAPRINE HCL 5 MG TABLET PO SCH (14:15)
[2019-02-19] MEDS: CYCLOBENZAPRINE HCL 5 MG TABLET PO PRN ×2 (14:32→21:21)
--- NOTE | 2019-02-19 14:36 | PN ---
BHS COWS - Scale Resting Pulse: 0= [place] 80 or Below Sweatin= Chills/Flushing Restless Observation: 1= Difficult to Sit Still Pupil Size: 0= Normal to Room Light Bone or Joint Aches: 2= Severe Diffuse Aches Runny Nose/ Eye Tearin= None GI Upset > 30mins: 1= Stomach Cramp Tremor Observation of Outstretched Hands: 2= Slight Tremor Visible Yawning Observation: 0= None Anxiety or Irritability: 2=Irritable/Anxious Goose Flesh Skin: 0=Smooth Skin COWS Score: 9 BHS Progress Note (SOAP) Subjective: PATIENT SEEN FOR WITHDRAWAL SYMPTOMS. PATIENT HAS HX OF IVDA WITH 14 BAGS OF HEROIN DAILY. COMPLETED DETOX 02/17/19. PATIENT INTERESTED IN SUBOXONE OR METHADONE MAT. REFERRED TO COUNSELOR RUSSELL FOR PLACEMENT. Objective: 02/19/19 14:32 Vital Signs Temperature 98.4 F 02/19/19 07:27 Pulse Rate 74 02/19/19 07:27 Respiratory Rate 18 02/19/19 07:27 Blood Pressure 107/66 02/19/19 07:27 O2 Sat by Pulse Oximetry (%) PE: ALERT AND ORIENTED X 3 SKIN WARM AND DRY, +CHILLS +PERRLA, EOMS INTACT BL NECK SUPPLE NO JVD CAR S1S2, RRR RESP CTA BL, NO WHEEZES OR RALES EXT FULL ROM, AMB AD JANE MILD TREMORS ANXIOUS, RESTLESS Assessment: 02/19/19 14:34 OPIOD DEPENDENCE IVDA SUBOXONE MAT Plan: PATIENT INTERESTED IN METHADONE PROGRAM AND MADE AWARE TREATMENT WILL START OUTPATIENT DUE TO CURRENT SYMPTOMS, WILL START SUBOXONE 2MG SL FOR SYMPTOM MANAGEMENT, CHANGE ROBAXIN TO FLEXERIL 5MG TID AND BELSOMRA 10MG ONCE UNTIL EVALUATED BY PSYCHIATRY ORAL FLUIDS ENCOURAGED CONTINUE TO MONITOR CLINICALLY
[2019-02-19] MEDS: ACETAMINOPHEN 325 MG TABLET (FP) PO PRN (17:08)
[2019-02-19] MEDS: MELATONIN 5 MG TABLETS PO PRN (21:21)
[2019-02-19] MEDS: THIAMINE HCL 100 MG TABLET (FP) PO SCH (21:21)
[2019-02-19] MEDS: ALBUTEROL SO4 8 GM HFA INHALER IH PRN (21:25)
[2019-02-20] MEDS: hydrOXYzine PAMOATE 50 MG CAPSULE (FP) PO PRN (08:52)
[2019-02-20] MEDS: CYCLOBENZAPRINE HCL 5 MG TABLET PO PRN ×2 (08:52→20:01)
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
[2019-02-20] MEDS: NICOTINE 21 MG/24 HOURS TOPICAL PATCH TD SCH (09:56)
[2019-02-20] MEDS: FLUTICASONE PROP 0.05% 16 GM NASAL SPRAY NS SCH ×2 (09:56→21:12)
[2019-02-20] MEDS: PRENATAL VITAMINS W/ FOLIC ACID TABLET (FP) PO SCH (09:57)
[2019-02-20] MEDS: BUDESONIDE/FORMETEROL FUMARATE 80/4.5 mcg INHALER IH SCH ×2 (09:57→21:11)
[2019-02-20] MEDS ORDERED: BUPRENORPHINE/NALOXONE 2 MG/0.5 MG FILM PACKET SL SCH (10:00)
[2019-02-20] MEDS ORDERED: BUPRENORPHINE/NALOXONE 2 MG/0.5 MG FILM PACKET SL ONE ×2 (10:12→11:30)
--- NOTE | 2019-02-20 10:12 | PN ---
BHS COWS - Scale Resting Pulse: 1= [place] 81-100 Sweatin= Chills/Flushing Restless Observation: 0= Sits Still Pupil Size: 0= Normal to Room Light Bone or Joint Aches: 2= Severe Diffuse Aches Runny Nose/ Eye Tearin= Runny Nose/Eyes GI Upset > 30mins: 1= Stomach Cramp Tremor Observation of Outstretched Hands: 4= Gross Tremor/Twitching Yawning Observation: 0= None Anxiety or Irritability: 2=Irritable/Anxious Goose Flesh Skin: 0=Smooth Skin COWS Score: 13 BHS Progress Note (SOAP) Subjective: Patient states she is still feeling withdrawal. COWS is 13. patient reports back pain, sweats, general irritability, Patient has not been able to find a methadone program that does not have a waiting list. She has now agreed to finding a suboxone program. Objective: Physical General: anxious, irritated. HEENTM: normocephalic Lungs: clear Heart: s1 s2 Abd: +BS. neuro: Cn 2-12 intact. 02/20/19 10:07 Assessment: Experiencing withdrawal from heroin 02/20/19 10:08 Plan: Will increase suboxone to 4 mg Once a day and give stat dose of 2mg. Patient has already received daily 2mg dose.
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
--- NOTE | 2019-02-20 12:11 | PN ---
BHS Progress Note (SOAP) Subjective: Patient reports white patches on tongue and difficulty swallowing,"it feels like something is stuck in my throat." Patient says she scraped off white patches on tongue this am; RN confirms that patient requested new toothpaste/ tooth brush. Objective: 02/20/19Exam: General: No apparent distress HEENTM: one white patch on left buccal cheek, throat clear. Lymph: non-palpable Lungs: clear Laboratory Tests 02/17/19 09:49 POC Urine HCG, Qual Negative Assessment: Thrush vs. Bacterial or viral throat infection 02/20/19 12:10 Plan: Started on Diflucan empirically, will order throat culture.
[2019-02-20] MEDS: FLUCONAZOLE 100 MG TABLET (UD) PO SCH (14:53)
[2019-02-20] MEDS: cloNIDine HCL 0.1 MG TABLET PO PRN (20:01)
[2019-02-20] MEDS: ACETAMINOPHEN 325 MG TABLET (FP) PO PRN (20:02)
[2019-02-20] MEDS: THIAMINE HCL 100 MG TABLET (FP) PO SCH (21:11)
[2019-02-20] MEDS: SUVOREXANT 15 MG TABLET PO PRN (21:13)
[2019-02-20] MEDS ORDERED: SUVOREXANT 10 MG TABLET PO ONE (22:00)
[2019-02-21] MEDS: cloNIDine HCL 0.1 MG TABLET PO PRN ×2 (06:38→21:49)
[2019-02-21] MEDS: hydrOXYzine PAMOATE 25 MG CAPSULE (FP) PO PRN ×2 (06:38→12:38)
[2019-02-21] MEDS: IBUPROFEN 400 MG TABLET (FP) PO PRN ×2 (06:39→14:40)
[2019-02-21] MEDS: BUPRENORPHINE/NALOXONE 4 MG/1 MG FILM PACKET SL SCH (10:00)
[2019-02-21] MEDS: FLUCONAZOLE 100 MG TABLET (UD) PO SCH (10:00)
[2019-02-21] MEDS: PRENATAL VITAMINS W/ FOLIC ACID TABLET (FP) PO SCH (10:00)
[2019-02-21] MEDS: NICOTINE 21 MG/24 HOURS TOPICAL PATCH TD SCH (10:00)
[2019-02-21] MEDS: BUDESONIDE/FORMETEROL FUMARATE 80/4.5 mcg INHALER IH SCH ×2 (10:01→21:51)
[2019-02-21] MEDS: FLUTICASONE PROP 0.05% 16 GM NASAL SPRAY NS SCH ×2 (10:02→21:50)
--- NOTE | 2019-02-21 14:40 | PN ---
S Progress Note Note: Throat culture negative; patient still has white patch and difficulty swallowing. Started mycolex trouches. Discontinued diflucan. 02/20/19 12:45 Throat Culture - Final Throat NO BETA HEMOLYTIC STREPTOCOCCI ISOLATED
[2019-02-21] MEDS ORDERED: PT OWN MED DRAWER 7, Y5N ONE ×2 (17:19→23:21)
[2019-02-21] MEDS: hydrOXYzine PAMOATE 50 MG CAPSULE (FP) PO PRN ×2 (17:20→21:49)
[2019-02-21] MEDS: CLOTRIMAZOLE 10 MG TROCHE (FP) PO SCH ×2 (17:53→21:52)
[2019-02-21] MEDS: MELATONIN 5 MG TABLETS PO PRN (21:48)
[2019-02-21] MEDS: THIAMINE HCL 100 MG TABLET (FP) PO SCH (21:48)
[2019-02-21] MEDS: CYCLOBENZAPRINE HCL 5 MG TABLET PO PRN (21:49)
[2019-02-21] MEDS: SUVOREXANT 15 MG TABLET PO PRN (21:49)
[2019-02-22] MEDS: hydrOXYzine PAMOATE 50 MG CAPSULE (FP) PO PRN ×5 (02:00→21:46)
[2019-02-22] MEDS ORDERED: PT OWN MED DRAWER 7, Y5N ONE ×3 (03:21→16:46)
[2019-02-22] MEDS: CYCLOBENZAPRINE HCL 5 MG TABLET PO PRN ×2 (06:51→16:45)
[2019-02-22] MEDS: CLOTRIMAZOLE 10 MG TROCHE (FP) PO SCH ×5 (06:51→21:49)
[2019-02-22] MEDS: cloNIDine HCL 0.1 MG TABLET PO PRN ×2 (06:51→18:46)
[2019-02-22] MEDS: NICOTINE 21 MG/24 HOURS TOPICAL PATCH TD SCH (09:50)
[2019-02-22] MEDS: BUPRENORPHINE/NALOXONE 4 MG/1 MG FILM PACKET SL SCH (09:51)
[2019-02-22] MEDS: PRENATAL VITAMINS W/ FOLIC ACID TABLET (FP) PO SCH (09:51)
[2019-02-22] MEDS: BUDESONIDE/FORMETEROL FUMARATE 80/4.5 mcg INHALER IH SCH ×2 (09:51→21:47)
[2019-02-22] MEDS: FLUTICASONE PROP 0.05% 16 GM NASAL SPRAY NS SCH ×2 (09:52→21:47)
[2019-02-22] MEDS: NICOTINE POLACRILEX 4 MG GUM BUC PRN (10:47)
[2019-02-22] MEDS: IBUPROFEN 400 MG TABLET (FP) PO PRN (10:48)
[2019-02-22] MEDS: ONDANSETRON *ODT* 4 MG TABLET SL PRN (12:54)
[2019-02-22] MEDS: COLLOIDAL OATMEAL 1 BAR EACH TP PRN (19:01)
[2019-02-22] MEDS: MELATONIN 5 MG TABLETS PO PRN (21:46)
[2019-02-22] MEDS: THIAMINE HCL 100 MG TABLET (FP) PO SCH (21:46)
[2019-02-22] MEDS: SUVOREXANT 15 MG TABLET PO PRN (21:48)
[2019-02-23] MEDS: cloNIDine HCL 0.1 MG TABLET PO PRN ×3 (01:02→20:46)
[2019-02-23] MEDS: CYCLOBENZAPRINE HCL 5 MG TABLET PO PRN ×3 (01:02→17:42)
[2019-02-23] MEDS ORDERED: PT OWN MED DRAWER 7, Y5N ONE ×4 (03:28→21:53)
[2019-02-23] MEDS: hydrOXYzine PAMOATE 50 MG CAPSULE (FP) PO PRN ×5 (03:36→22:23)
[2019-02-23] MEDS: CLOTRIMAZOLE 10 MG TROCHE (FP) PO SCH ×5 (07:19→21:54)
[2019-02-23] MEDS: FLUTICASONE PROP 0.05% 16 GM NASAL SPRAY NS SCH ×2 (09:42→21:52)
[2019-02-23] MEDS: NICOTINE 21 MG/24 HOURS TOPICAL PATCH TD SCH (09:43)
[2019-02-23] MEDS: BUDESONIDE/FORMETEROL FUMARATE 80/4.5 mcg INHALER IH SCH ×2 (09:44→21:52)
[2019-02-23] MEDS: PRENATAL VITAMINS W/ FOLIC ACID TABLET (FP) PO SCH (09:44)
[2019-02-23] MEDS: BUPRENORPHINE/NALOXONE 4 MG/1 MG FILM PACKET SL SCH ×2 (09:44→21:53)
[2019-02-23] MEDS: ALBUTEROL SO4 8 GM HFA INHALER IH PRN (09:45)
--- NOTE | 2019-02-23 15:43 | PN ---
BHS COWS - Scale Resting Pulse: 0= [place] 80 or Below Sweatin= Chills/Flushing Restless Observation: 1= Difficult to Sit Still Pupil Size: 0= Normal to Room Light Bone or Joint Aches: 2= Severe Diffuse Aches Runny Nose/ Eye Tearin= None GI Upset > 30mins: 0= None Tremor Observation of Outstretched Hands: 0= None Yawning Observation: 0= None Anxiety or Irritability: 2=Irritable/Anxious Goose Flesh Skin: 0=Smooth Skin COWS Score: 6 BHS Progress Note (SOAP) Subjective: Patient seen for c/o withdrawal symptoms of body aches, anxiety, chills and restlessness. Also requesting STI testing as she states prior to admission she had unprotected sex and partner STI status questionable. Patient denies vaginal discharge, urinary frequency, foul smell and pelvic discomfort at this time. Objective: 02/23/19 15:41 Laboratory Tests 02/17/19 09:49 POC Urine HCG, Qual Negative Vital Signs Temperature 97.1 F L 02/23/19 06:56 Pulse Rate 61 02/23/19 06:56 Respiratory Rate 18 02/23/19 06:56 Blood Pressure 109/67 02/23/19 06:56 O2 Sat by Pulse Oximetry (%) PE: alert and oriented x 3 skin warm and dry +perrla eoms intact bl gi nt, nd ext no tremors, amb ad joselito, no swelling anxious/pacing in hallway Assessment: 02/23/19 15:42 Possible STI exposure suboxone mat opiod use disorder Plan: will increase suboxone to 4mg sl bid connected to new focus for aftercare urine for GC/CHLAMYDIA/TRICH ordered monitor clinically
--- NOTE | 2019-02-23 18:23 | PN ---
[facility] Progress Note Note: Psychiatry Attending's note : Called for renewal of suvorexant. Chart reviewed. Medication is confirmed. relay man Isatu's note (02/20/19) : Appreciated. Reordered : belsomra 15 mg po hs prn.
[2019-02-23] MEDS: SUVOREXANT 15 MG TABLET PO PRN (21:50)
[2019-02-23] MEDS: THIAMINE HCL 100 MG TABLET (FP) PO SCH (21:50)
[2019-02-23] MEDS: MELATONIN 5 MG TABLETS PO PRN (21:50)
[2019-02-24] MEDS ORDERED: PT OWN MED DRAWER 7, Y5N ONE ×6 (05:57→17:00)
[2019-02-24] MEDS: hydrOXYzine PAMOATE 50 MG CAPSULE (FP) PO PRN ×4 (06:42→19:09)
[2019-02-24] MEDS: CYCLOBENZAPRINE HCL 5 MG TABLET PO PRN ×3 (06:42→21:44)
[2019-02-24] MEDS: CLOTRIMAZOLE 10 MG TROCHE (FP) PO SCH ×5 (06:42→21:49)
[2019-02-24] MEDS: cloNIDine HCL 0.1 MG TABLET PO PRN ×3 (06:44→21:44)
[2019-02-24] MEDS: PRENATAL VITAMINS W/ FOLIC ACID TABLET (FP) PO SCH (09:24)
[2019-02-24] MEDS: NICOTINE 21 MG/24 HOURS TOPICAL PATCH TD SCH (09:24)
[2019-02-24] MEDS: FLUTICASONE PROP 0.05% 16 GM NASAL SPRAY NS SCH ×2 (09:24→21:45)
[2019-02-24] MEDS: BUDESONIDE/FORMETEROL FUMARATE 80/4.5 mcg INHALER IH SCH ×2 (09:24→21:45)
[2019-02-24] MEDS: BUPRENORPHINE/NALOXONE 4 MG/1 MG FILM PACKET SL SCH ×2 (09:24→21:48)
[2019-02-24] MEDS: NICOTINE POLACRILEX 4 MG GUM BUC PRN ×2 (09:24→15:01)
[2019-02-24] MEDS: MAGNESIUM HYDROX 2400MG/30ML ORAL SUSPENSION 30 ML CUP PO PRN (10:31)
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
[2019-02-24] MEDS: HYDROCORTISONE 2.5% TOPICAL CREAM 30 GM TUBE TP SCH (16:00)
--- NOTE | 2019-02-24 16:44 | PN ---
Psychiatric Progress Note Vital Signs: Vital Signs Period Temp Pulse Resp BP Sys/Chan Pulse Ox Last 24 Hr 97.8 F 71 18-18 124-126/69-79 Date of Session: 02/24/19 Chief Complaint:: " I am anxious and I sleep poorly at night." HPI: Day 7 of rehabilitation. Psychiatric follow-up is conducted at patient's request to see the psychiatrist for discussion of hypnotic + antidepressant/ anxiolytic medications. Ms Nguyen indicates that she has been increasingly feeling apprehensive and dysphoric in recent days. She reports that she has just been involved in a verbal altercation with a peer. Feels upset but not eager to retaliate against anyone. Hospital course has been uneventful since admission. ROS: Patient is ambulatory, well groomed, cognitively intact and stable. No somatic issues. Current Medications: Active Medications Generic Name Dose Route Start Last Admin Trade Name Freq PRN Reason Stop Dose Admin Acetaminophen 650 mg 02/17/19 11:01 02/20/19 20:02 Tylenol - PO 650 mg Q4H PRN Administration FEVER Al Hydroxide/Mg Hydroxide 30 ml 02/17/19 11:01 Mylanta Oral Suspension - PO Q6H PRN DYSPEPSIA Albuterol Sulfate 2 puff 02/18/19 11:35 02/23/19 09:45 Ventolin Hfa Inhaler - IH 2 inh Q4HWA PRN Administration ASTHMA Budesonide/Formoterol Fumarate 1 puff 02/17/19 11:30 02/24/19 09:24 Symbicort 80/4.5mcg - IH 1 puff BID ZEN Administration Buprenorphine/Naloxone 1 each 02/23/19 22:00 02/24/19 09:24 Suboxone 4 Mg-1 Mg Sl Film SL 1 each BID ZNE Administration Clonidine 0.1 mg 02/17/19 11:13 02/24/19 13:58 Catapres - PO 0.1 mg Q6H PRN Administration WITHDRAWAL(CONT SUBST) Clotrimazole 10 mg 02/21/19 18:00 02/24/19 13:58 Mycelex Braydon's - PO 10 mg 5XD ZEN Administration Colloidal Oatmeal 1 applic 02/17/19 11:07 02/22/19 19:01 Aveeno Soap - TP 1 applic DAILY PRN Administration HYGEINE Cyclobenzaprine HCl 5 mg 10/21/19 14:19 02/24/19 14:57 Cyclobenzaprine Hcl PO 5 mg TID PRN Administration BACK PAIN Eucalyptus/Menthol/Phenol/Sorbitol 1 each 02/17/19 11:01 02/18/19 17:26 Cepastat Lozenge - MM 1 each Q4H PRN Administration SORE THROAT Fluticasone Propionate 1 spray 02/17/19 11:30 02/24/19 09:24 Flonase - NS 1 spray BID ZEN Administration Guaifenesin 10 ml 02/17/19 11:01 Robitussin - PO Q6H PRN COUGH Hydrocortisone 1 applic 02/24/19 15:30 Anusol 2.5% Hc Cream - TP DAILY [facility] Hydroxyzine Pamoate 50 mg 02/21/19 14:21 02/24/19 14:57 Vistaril - PO 50 mg Q4H PRN Administration ANXIETY Ibuprofen 800 mg 02/17/19 11:18 02/22/19 10:48 Motrin - PO 800 mg Q8H PRN Administration FEVER Loperamide HCl 4 mg 02/17/19 11:01 Imodium - PO Q6H PRN DIARRHEA Magnesium Citrate 300 ml 02/17/19 11:01 Citroma - PO Q48H PRN CONSTIPATION Magnesium Hydroxide 30 ml 02/17/19 11:01 02/24/19 10:31 Milk Of Magnesia - PO 30 ml DAILY PRN Administration CONSTIPATION Melatonin 10 mg 02/21/19 14:20 02/23/19 21:50 Melatonin PO 10 mg HS PRN Administration INSOMNIA Mirtazapine 15 mg 02/24/19 22:00 Remeron - PO HS ZEN Nicotine 21 mg 02/17/19 11:15 02/24/19 09:24 Nicoderm Patch - TD 21 mg DAILY ZEN Administration Nicotine Polacrilex 4 mg 02/17/19 11:01 02/24/19 15:01 Nicorette Gum - BUC 4 mg Q2H PRN Administration NICOTINE REPLACEMENT RX Ondansetron HCl 4 mg 02/17/19 11:17 02/22/19 12:54 Zofran Odt - SL 4 mg Q6H PRN Administration NAUSEA AND/OR VOMITING Multivit/Folic Acid/Iron 1 tab 02/18/19 10:00 02/24/19 09:24 Vitamins (Sjr) - PO Not Given DAILY ZEN Pseudoephedrine/Triprolidine 1 combo 02/17/19 11:01 Actifed - PO TID PRN NASAL CONGESTION Suvorexant 15 mg 02/23/19 18:17 02/23/19 21:50 Belsomra PO 15 mg HS PRN Administration INSOMNIA Thiamine HCl 100 mg 02/17/19 22:00 02/23/19 21:50 Vitamin B1 - PO Not Given HS ZEN Medication(s) Change(s): Yes. Insomnia is addressed with mirtazapine 15 mg po hs. Patient is offered quetiapine. She declines after review of side effects. Antidepressant medications revisited. Made aware of slow onset of action of SSRI agents. Plan is to observe response to mirtazapine and advise further action at another follow-up visit. Nursing Aide will provide coverage. Current Side Effect: No Lab tests ordered: No Lab tests reviewed: Yes Provider note:: Chart reviewed. Multidisciplinary notes are revisited. Consult note (02/20/19) by industrial cafeteria manager Krys Cabrera : appreciated. Patient is re- interviewed with machinist helper marine, nursing home director Mary Wing, in attendance. Interactive session. Patient responsded positively to support, teaching and feedback. Ms Nguyen is noted as articulate, logical, well-tempered and appropriate. " I felt disrespected by the other person but I will not compromise my care here by taking matters into my hands. I have decided to avoid this person and mind my business. I she provokes me again, I will have call staff for help." Patient reports that she had taken sertraline for about two weeks during stay at a previous rehabilitation center. " It did not work. My anxiety had remained the same. I did not get any benefit from that medication." Education provided about mode of action of SSRIs. Insomnia is addressed with mirtazapine with patient's consent (verbal). Principles of sleep hygiene discussed in this session. Augmentation with atypical agents (second generation antipsychotics) is offered to the patient (for the purpose of mood stabilization). She declines at this time (wary of adverse effects). Ms Nguyen is NOT a danger to self or others. She is motivated for treatment. She exhibits adequate impulse control and social restraints. Mental staus is stable. See MSE report for details. Support and reassurance provided. Monitor patient's clinical course. Total face to face time:: 35 Mental Status Exam - Mental Status Exam Alert and Oriented to: Time, Place, Person Cognitive Function: Good Patient Appearance: Well Groomed (overweight) Mood: Anxious (moderately), Hopeful Affect: Appropriate, Normal Range Patient Behavior: Appropriate, Cooperative Speech Pattern: Clear, Appropriate Voice Loudness: Normal Thought Process: Intact, Goal Oriented Thought Disorder: Not Present Hallucinations: Denies Suicidal Ideation: Denies Homicidal Ideation: Denies Insight/Judgement: Good Sleep: Poorly, Difficulty falling asleep Appetite: Good Gait/Station: Normal Psychiatric Treatment Plan - Problem List (1) Insomnia Current Visit: Yes Qualifiers: Insomnia type: primary Qualified Code(s): F51.01 - Primary insomnia Comment: . (2) Opioid use disorder Current Visit: Yes Comment: . (3) Alcohol use disorder Current Visit: Yes Comment: . (4) Cannabis dependence Current Visit: Yes Comment: . (5) Cocaine use disorder Current Visit: Yes Comment: . (6) Nicotine dependence Current Visit: Yes Qualifiers: Nicotine product type: cigarettes Substance use status: uncomplicated Qualified Code(s): F17.210 - Nicotine dependence, cigarettes, uncomplicated Comment: . (7) Substance induced mood disorder Current Visit: Yes Comment: .
[2019-02-24] MEDS: THIAMINE HCL 100 MG TABLET (FP) PO SCH (21:44)
[2019-02-24] MEDS: MIRTAZAPINE 15 MG TABLET (FP) PO SCH (21:48)
[2019-02-24] MEDS: MELATONIN 5 MG TABLETS PO PRN (21:48)
[2019-02-24] MEDS: SUVOREXANT 15 MG TABLET PO PRN (21:49)
[2019-02-25] MEDS: hydrOXYzine PAMOATE 50 MG CAPSULE (FP) PO PRN ×5 (02:34→18:43)
[2019-02-25] MEDS ORDERED: PT OWN MED DRAWER 7, Y5N ONE ×7 (05:52→23:39)
[2019-02-25] MEDS: CYCLOBENZAPRINE HCL 5 MG TABLET PO PRN ×2 (06:13→14:20)
[2019-02-25] MEDS: CLOTRIMAZOLE 10 MG TROCHE (FP) PO SCH ×5 (06:14→21:39)
[2019-02-25] MEDS: NICOTINE POLACRILEX 4 MG GUM BUC PRN ×3 (06:14→12:52)
[2019-02-25] MEDS: cloNIDine HCL 0.1 MG TABLET PO PRN ×3 (06:14→19:07)
[2019-02-25] MEDS: FLUTICASONE PROP 0.05% 16 GM NASAL SPRAY NS SCH ×2 (09:46→21:37)
[2019-02-25] MEDS: BUDESONIDE/FORMETEROL FUMARATE 80/4.5 mcg INHALER IH SCH ×2 (09:46→21:37)
[2019-02-25] MEDS: PRENATAL VITAMINS W/ FOLIC ACID TABLET (FP) PO SCH (09:46)
[2019-02-25] MEDS: HYDROCORTISONE 2.5% TOPICAL CREAM 30 GM TUBE TP SCH (09:46)
[2019-02-25] MEDS: NICOTINE 21 MG/24 HOURS TOPICAL PATCH TD SCH (09:48)
[2019-02-25] MEDS: BUPRENORPHINE/NALOXONE 4 MG/1 MG FILM PACKET SL SCH ×2 (09:50→21:37)
[2019-02-25] MEDS: IBUPROFEN 400 MG TABLET (FP) PO PRN (14:21)
[2019-02-25] MEDS: THIAMINE HCL 100 MG TABLET (FP) PO SCH (21:32)
[2019-02-25] MEDS: MIRTAZAPINE 15 MG TABLET (FP) PO SCH (21:36)
[2019-02-25] MEDS: MELATONIN 5 MG TABLETS PO PRN (21:36)
[2019-02-25] MEDS: SUVOREXANT 15 MG TABLET PO PRN (21:38)
[2019-02-26] MEDS: cloNIDine HCL 0.1 MG TABLET PO PRN ×3 (02:07→16:36)
[2019-02-26] MEDS: hydrOXYzine PAMOATE 50 MG CAPSULE (FP) PO PRN ×6 (02:07→23:39)
[2019-02-26] MEDS ORDERED: PT OWN MED DRAWER 7, Y5N ONE ×6 (05:47→22:58)
[2019-02-26] MEDS: CLOTRIMAZOLE 10 MG TROCHE (FP) PO SCH ×5 (06:30→21:30)
[2019-02-26] MEDS: HYDROCORTISONE 2.5% TOPICAL CREAM 30 GM TUBE TP SCH (09:49)
[2019-02-26] MEDS: BUPRENORPHINE/NALOXONE 4 MG/1 MG FILM PACKET SL SCH ×2 (09:49→21:33)
[2019-02-26] MEDS: PRENATAL VITAMINS W/ FOLIC ACID TABLET (FP) PO SCH (09:49)
[2019-02-26] MEDS: BUDESONIDE/FORMETEROL FUMARATE 80/4.5 mcg INHALER IH SCH ×2 (09:49→21:29)
[2019-02-26] MEDS: NICOTINE 21 MG/24 HOURS TOPICAL PATCH TD SCH (09:49)
[2019-02-26] MEDS: FLUTICASONE PROP 0.05% 16 GM NASAL SPRAY NS SCH ×2 (09:55→21:29)
[2019-02-26] MEDS: IBUPROFEN 400 MG TABLET (FP) PO PRN ×2 (12:17→23:40)
[2019-02-26] MEDS: CYCLOBENZAPRINE HCL 5 MG TABLET PO PRN ×2 (13:59→21:29)
[2019-02-26] MEDS: NICOTINE POLACRILEX 4 MG GUM BUC PRN (19:16)
[2019-02-26] MEDS: MELATONIN 5 MG TABLETS PO PRN (21:28)
[2019-02-26] MEDS: THIAMINE HCL 100 MG TABLET (FP) PO SCH (21:28)
[2019-02-26] MEDS: SUVOREXANT 15 MG TABLET PO PRN (21:29)
[2019-02-26] MEDS: MIRTAZAPINE 15 MG TABLET (FP) PO SCH (21:29)
[2019-02-26] MEDS: MAGNESIUM HYDROX 2400MG/30ML ORAL SUSPENSION 30 ML CUP PO PRN (21:35)
[2019-02-27] MEDS ORDERED: PT OWN MED DRAWER 7, Y5N ONE ×6 (03:26→21:27)
[2019-02-27] MEDS: hydrOXYzine PAMOATE 50 MG CAPSULE (FP) PO PRN ×4 (06:11→18:41)
[2019-02-27] MEDS: cloNIDine HCL 0.1 MG TABLET PO PRN ×3 (06:11→21:27)
[2019-02-27] MEDS: CLOTRIMAZOLE 10 MG TROCHE (FP) PO SCH ×5 (06:11→21:27)
[2019-02-27] MEDS: HYDROCORTISONE 2.5% TOPICAL CREAM 30 GM TUBE TP SCH (09:57)
[2019-02-27] MEDS: FLUTICASONE PROP 0.05% 16 GM NASAL SPRAY NS SCH ×2 (09:58→21:26)
[2019-02-27] MEDS: PRENATAL VITAMINS W/ FOLIC ACID TABLET (FP) PO SCH (09:59)
[2019-02-27] MEDS: NICOTINE 21 MG/24 HOURS TOPICAL PATCH TD SCH (09:59)
[2019-02-27] MEDS: BUDESONIDE/FORMETEROL FUMARATE 80/4.5 mcg INHALER IH SCH ×2 (10:00→21:26)
[2019-02-27] MEDS: ALBUTEROL SO4 8 GM HFA INHALER IH PRN ×2 (10:00→21:26)
[2019-02-27] MEDS: BUPRENORPHINE/NALOXONE 4 MG/1 MG FILM PACKET SL SCH (10:00)
[2019-02-27] MEDS: NICOTINE POLACRILEX 4 MG GUM BUC PRN (10:02)
[2019-02-27] MEDS: CYCLOBENZAPRINE HCL 5 MG TABLET PO PRN ×2 (14:33→21:27)
--- NOTE | 2019-02-27 16:01 | PN ---
[facility] COWS - Scale Resting Pulse: 1= CO 81-100 Sweatin=Flushed/Facial Moisture Restless Observation: 0= Sits Still Pupil Size: 0= Normal to Room Light Bone or Joint Aches: 2= Severe Diffuse Aches Runny Nose/ Eye Tearin= Runny Nose/Eyes GI Upset > 30mins: 1= Stomach Cramp Tremor Observation of Outstretched Hands: 2= Slight Tremor Visible Yawning Observation: 0= None Anxiety or Irritability: 1=Feels Anxious/Irritable Goose Flesh Skin: 0=Smooth Skin COWS Score: 11 [facility] Progress Note (SOAP) Subjective: Patient states that the present dose of suboxone is not effective and she is still experiencing withdrawal symptoms Objective: General: No apparent distress, anxious HEENTM: moist mucus membranes, PERRLA, Lungs: clear Heart: s1 s2 abd: +BS MSK: full weight bearing, full ROM neuro_ CN 2-12 intact 02/27/19 15:59 02/27/19 16:00 Assessment: Withdrawal from heroin 02/27/19 16:01 Plan: Will increase suboxone to 8mg BID. Continue to monitor,
[2019-02-27] MEDS ORDERED: BUPRENORPHINE/NALOXONE 8 MG/2 MG FILM PACKET SL ONE (17:00)
[2019-02-27] MEDS: IBUPROFEN 400 MG TABLET (FP) PO PRN (18:20)
[2019-02-27] MEDS: THIAMINE HCL 100 MG TABLET (FP) PO SCH (21:27)
[2019-02-27] MEDS: MIRTAZAPINE 15 MG TABLET (FP) PO SCH (21:27)
[2019-02-27] MEDS: MELATONIN 5 MG TABLETS PO PRN (21:28)
[2019-02-27] MEDS: SUVOREXANT 15 MG TABLET PO PRN (21:28)
[2019-02-27] MEDS: MAGNESIUM CITRATE 300 ML BOTTLE PO PRN (21:31)
[2019-02-27] MEDS ORDERED: BUPRENORPHINE/NALOXONE 8 MG/2 MG FILM PACKET SL SCH (22:00)
[2019-02-28] MEDS ORDERED: PT OWN MED DRAWER 7, Y5N ONE ×6 (03:25→21:47)
[2019-02-28] MEDS: CYCLOBENZAPRINE HCL 5 MG TABLET PO PRN ×2 (06:48→19:05)
[2019-02-28] MEDS: CLOTRIMAZOLE 10 MG TROCHE (FP) PO SCH ×5 (06:48→21:39)
[2019-02-28] MEDS: hydrOXYzine PAMOATE 50 MG CAPSULE (FP) PO PRN ×4 (06:48→21:39)
[2019-02-28] MEDS: cloNIDine HCL 0.1 MG TABLET PO PRN ×3 (06:48→21:55)
[2019-02-28] MEDS: IBUPROFEN 400 MG TABLET (FP) PO PRN ×2 (08:30→21:53)
[2019-02-28] MEDS: PRENATAL VITAMINS W/ FOLIC ACID TABLET (FP) PO SCH (10:30)
[2019-02-28] MEDS: NICOTINE 21 MG/24 HOURS TOPICAL PATCH TD SCH (10:31)
[2019-02-28] MEDS: BUDESONIDE/FORMETEROL FUMARATE 80/4.5 mcg INHALER IH SCH ×2 (10:31→21:39)
[2019-02-28] MEDS: FLUTICASONE PROP 0.05% 16 GM NASAL SPRAY NS SCH ×2 (10:32→21:46)
[2019-02-28] MEDS: HYDROCORTISONE 2.5% TOPICAL CREAM 30 GM TUBE TP SCH (10:33)
[2019-02-28] MEDS ORDERED: BUPRENORPHINE/NALOXONE 8 MG/2 MG FILM PACKET SL ONE (10:36)
[2019-02-28] MEDS ORDERED: BENZOCAINE 20 % GEL TUBE MM PRN (12:14)
--- NOTE | 2019-02-28 12:16 | DS ---
[facility] Rehab Discharge Summary - [facility] Rehab Discharge Summary Admission Date: 02/17/19 Discharge Date: 02/28/19 - History Present History: Alcohol dependence, Cannabis dependence, Cocaine dependence Pertinent Past History: 38 yo woman completed detox from opiates at [facility] 02/12-02/17/19 - was supposed to go to [facility] rehab today but was never picked up so she continued treatment at our rehab. No overdose history or seizures but has had black outs. - Discharge Physical Exam Vital Signs: Vital Signs Temperature 97.9 F 02/28/19 06:57 Pulse Rate 80 02/28/19 10:00 Respiratory Rate 18 02/28/19 06:57 Blood Pressure 146/71 02/28/19 10:00 O2 Sat by Pulse Oximetry (%) Pertinent Admission Physical Exam Findings: Physical General Appearance: No apparent distress HEENTM: Normocephalic, PERRLA Respiratory: Lungs clear Neck: Supple Cardiology S1 S2 Abdominal: +BS, Musculoskeletal: full range of Motion, Gait Steady Neurological: Cn 2-12 intact - Treatment Discharge Condition: Outpatient referral accepted (Medically stable for discharge. Patient will go to [facility] upon discharge.) Hospital Course: patient met with counselor 1:1, was seen by psychiatry. She was started on suboxone treatment and will continue with [facility]. She was adherent to her treatment plan and medication regimen. Patient expressed interest in PrEP and a referral was made to the PrEP team at the [facility]. - Medication Discharge Medications: Ambulatory Orders Ibuprofen [Motrin -] 800 mg PO Q6H #30 tablet 01/28/18 hydrOXYzine PAMOATE [Vistaril -] 50 mg PO Q6H PRN #30 capsule 01/31/18 Albuterol Sulfate Inhaler - [Ventolin HFA Inhaler -] 2 inhaler PO Q4HWA PRN #1 inhaler 10/25/18 Budesonide/Formeterol Fumarate [SYMBICORT 80/4.5mcg -] 1 inh PO BID #1 inhaler 10/25/18 Fluticasone Prop 0.05% Nasal [Flonase -] 1 spray NS BID #1 spray.pump 10/25/18 - Medication-Assisted Treatment (MAT) Medication-Assisted Treatment (MAT): Yes Medication Prescribed: Buprenorphine MAT Follow-up Referral: Patient will continue suboxone MAT at [facility]. - Discharge Instructions Diet, activity, other medical instructions: Diet: as tolerated Activity: as tolerated Other medical instructions: please follow up with aftercare referral and PrEP referral. - Diagnosis (1) Alcohol abuse Current Visit: Yes Status: Chronic (2) Alcohol use disorder Current Visit: Yes Status: Chronic (3) Cannabis dependence Current Visit: Yes Status: Chronic (4) Cocaine use disorder Current Visit: Yes Status: Chronic - Follow-up Referral Minutes to complete discharge: 20 - AMA Did Patient Leave Against Medical Advice: No
--- NOTE | 2019-02-28 12:41 | PN ---
Psychiatric Progress Note Vital Signs: Vital Signs Period Temp Pulse Resp BP Sys/Chan Pulse Ox Last 24 Hr 97.9 F 79-90 18-18 111-151/63-82 Date of Session: 02/28/19 Chief Complaint:: " I'm having trouble sleeping." HPI: Patient admitted to for alcohol and opiate dependence. Patient reports difficulty sleeping. ROS: Patient is coherent, alert + oriented X3. Current Medications: Active Medications Generic Name Dose Route Start Last Admin Trade Name Freq PRN Reason Stop Dose Admin Acetaminophen 650 mg 02/17/19 11:01 02/20/19 20:02 Tylenol - PO 650 mg Q4H PRN Administration FEVER Al Hydroxide/Mg Hydroxide 30 ml 02/17/19 11:01 Mylanta Oral Suspension - PO Q6H PRN DYSPEPSIA Albuterol Sulfate 2 puff 02/18/19 11:35 02/27/19 21:26 Ventolin Hfa Inhaler - IH 2 inh Q4HWA PRN Administration ASTHMA Benzocaine 1 applic 02/28/19 12:14 Anbesol - MM Q6H PRN FOR TOOTHACHE Budesonide/Formoterol Fumarate 1 puff 02/17/19 11:30 02/28/19 10:31 Symbicort 80/4.5mcg - IH 1 puff BID ZEN Administration Buprenorphine/Naloxone 1 each 02/28/19 22:00 Suboxone 8 Mg/2mg Sl Film - SL 03/05/19 23:59 BID@1000,2200 ZEN Clonidine 0.1 mg 02/17/19 11:13 02/28/19 06:48 Catapres - PO 0.1 mg Q6H PRN Administration WITHDRAWAL(CONT SUBST) Clotrimazole 10 mg 02/21/19 18:00 02/28/19 10:33 Mycelex Braydon's - PO 10 mg 5XD ZEN Administration Colloidal Oatmeal 1 applic 02/17/19 11:07 02/22/19 19:01 Aveeno Soap - TP 1 applic DAILY PRN Administration HYGEINE Cyclobenzaprine HCl 5 mg 02/19/19 14:19 02/28/19 06:48 Cyclobenzaprine Hcl PO 5 mg TID PRN Administration BACK PAIN Eucalyptus/Menthol/Phenol/Sorbitol 1 each 02/17/19 11:01 02/18/19 17:26 Cepastat Lozenge - MM 1 each Q4H PRN Administration SORE THROAT Fluticasone Propionate 1 spray 02/17/19 11:30 02/28/19 10:32 Flonase - NS 1 spray BID ZEN Administration Guaifenesin 10 ml 02/17/19 11:01 Robitussin - PO Q6H PRN COUGH Hydrocortisone 1 applic 02/24/19 15:30 02/28/19 10:33 Anusol 2.5% Hc Cream - TP Not Given DAILY [facility] Hydroxyzine Pamoate 50 mg 02/21/19 14:21 02/28/19 10:52 Vistaril - PO 50 mg Q4H PRN Administration ANXIETY Ibuprofen 800 mg 02/17/19 11:18 02/28/19 08:30 Motrin - PO 800 mg Q8H PRN Administration FEVER Loperamide HCl 4 mg 02/17/19 11:01 Imodium - PO Q6H PRN DIARRHEA Magnesium Citrate 300 ml 02/17/19 11:01 02/27/19 21:31 Citroma - PO 300 ml Q48H PRN Administration CONSTIPATION Magnesium Hydroxide 30 ml 02/17/19 11:01 02/26/19 21:35 Milk Of Magnesia - PO 30 ml DAILY PRN Administration CONSTIPATION Melatonin 10 mg 02/21/19 14:20 02/27/19 21:28 Melatonin PO 10 mg HS PRN Administration INSOMNIA Mirtazapine 15 mg 02/24/19 22:00 02/27/19 21:27 Remeron - PO 15 mg HS ZEN Administration Nicotine 21 mg 02/17/19 11:15 02/28/19 10:31 Nicoderm Patch - TD 21 mg DAILY ZEN Administration Nicotine Polacrilex 4 mg 02/17/19 11:01 02/27/19 10:02 Nicorette Gum - BUC 4 mg Q2H PRN Administration NICOTINE REPLACEMENT RX Ondansetron HCl 4 mg 02/17/19 11:17 02/22/19 12:54 Zofran Odt - SL 4 mg Q6H PRN Administration NAUSEA AND/OR VOMITING Multivit/Folic Acid/Iron 1 tab 02/18/19 10:00 02/28/19 10:30 Vitamins (Sjr) - PO Not Given DAILY [facility] Pseudoephedrine/Triprolidine 1 combo 02/17/19 11:01 Actifed - PO TID PRN NASAL CONGESTION Suvorexant 20 mg 02/28/19 22:00 Belsomra PO HS PRN INSOMNIA Thiamine HCl 100 mg 02/17/19 22:00 02/27/19 21:27 Vitamin B1 - PO 100 mg HS ZEN Administration Medication(s) Change(s): Yes. Current Side Effect: No Lab tests ordered: No Lab tests reviewed: Yes Provider note:: Patient reports difficulty sleeping despite accepting Belasomra 15mg. Will d/c belsomra 15mg and will order Belsomra 20mg HS. Benefits and side effects discussed. Verbal consent given. Total face to face time:: 20 Mental Status Exam - Mental Status Exam Alert and Oriented to: Time, Place, Person Cognitive Function: Good Patient Appearance: Well Groomed Mood: Euthymic Affect: Mood Congruent Patient Behavior: Cooperative Speech Pattern: Appropriate Voice Loudness: Normal Thought Process: Goal Oriented Thought Disorder: Not Present Hallucinations: Denies Suicidal Ideation: Denies Homicidal Ideation: Denies Insight/Judgement: Poor Sleep: Poorly Appetite: Fair Muscle strength/Tone: Normal Gait/Station: Normal Psychiatric Treatment Plan - Problem List (1) Substance induced mood disorder Current Visit: Yes Comment: . (2) Substance-induced anxiety disorder Current Visit: Yes (3) Substance-induced sleep disorder Current Visit: Yes (4) Alcohol use disorder Current Visit: Yes Comment: . (5) Cocaine use disorder Current Visit: Yes Comment: . (6) Opiate dependence Current Visit: Yes
--- NOTE | 2019-02-28 14:04 | PN ---
[facility] Progress Note Note: P
--- NOTE | 2019-02-28 14:11 | PN ---
S Progress Note Note: Psychiatric nurse practitioner note: Patient scheduled for discharge tomorrow morning. A 30 day supply of Vistaril 50mg Q8hr PRN for anxiety ( 60 tablets) + Mirtazapine 15mg HS + Melatonin 10mg HS was electronically sent to [facility] [address] [place] [address].
[2019-02-28] MEDS: ACETAMINOPHEN 325 MG TABLET (FP) PO PRN (15:43)
[2019-02-28] MEDS: MELATONIN 5 MG TABLETS PO PRN (21:39)
[2019-02-28] MEDS: THIAMINE HCL 100 MG TABLET (FP) PO SCH (21:39)
[2019-02-28] MEDS: ALBUTEROL SO4 8 GM HFA INHALER IH PRN (21:40)
[2019-02-28] MEDS: BUPRENORPHINE/NALOXONE 8 MG/2 MG FILM PACKET SL SCH (21:45)
[2019-02-28] MEDS: MIRTAZAPINE 15 MG TABLET (FP) PO SCH (21:45)
[2019-02-28] MEDS: MAGNESIUM CITRATE 300 ML BOTTLE PO PRN (21:51)
[2019-02-28] MEDS ORDERED: SUVOREXANT 20 MG TABLET PO PRN (22:00)
[2019-03-01] MEDS: hydrOXYzine PAMOATE 50 MG CAPSULE (FP) PO PRN ×2 (02:16→06:20)
[2019-03-01] MEDS: CYCLOBENZAPRINE HCL 5 MG TABLET PO PRN (02:17)
[2019-03-01] MEDS ORDERED: PT OWN MED DRAWER 7, Y5N ONE ×2 (03:28→09:05)
[2019-03-01] MEDS: cloNIDine HCL 0.1 MG TABLET PO PRN (06:20)
[2019-03-01] MEDS: CLOTRIMAZOLE 10 MG TROCHE (FP) PO SCH ×2 (06:20→09:06)
[2019-03-01] MEDS: NICOTINE POLACRILEX 4 MG GUM BUC PRN (06:21)
[2019-03-01 07:12] VITALS: BP 138/72; PULSE 75; TEMP 98.1
[2019-03-01] MEDS: FLUTICASONE PROP 0.05% 16 GM NASAL SPRAY NS SCH (09:06)
[2019-03-01] MEDS: NICOTINE 21 MG/24 HOURS TOPICAL PATCH TD SCH (09:06)
[2019-03-01] MEDS: BUDESONIDE/FORMETEROL FUMARATE 80/4.5 mcg INHALER IH SCH (09:06)
[2019-03-01] MEDS: HYDROCORTISONE 2.5% TOPICAL CREAM 30 GM TUBE TP SCH (09:06)
[2019-03-01] MEDS: BUPRENORPHINE/NALOXONE 8 MG/2 MG FILM PACKET SL SCH (09:06)
[2019-03-01] MEDS: PRENATAL VITAMINS W/ FOLIC ACID TABLET (FP) PO SCH (09:06)
== END 2019-03-01 09:16 | disposition home or self-care (01) | DRG 772 ==
LOC: YASAS 09:06 → Y6N 14:18 → Y3E 02-18 14:53
PROVIDERS: ADMIT Allergy & Immunology; ATTEND Allergy & Immunology
PROC: HZ42ZZZ Group Counseling for Substance Abuse Treatment, Cognitive-Behavioral (ICD-10-PCS; principal; 2019-02-17)
DX: F10.20 Alcohol dependence, uncomplicated (principal); F11.20 Opioid dependence, uncomplicated; F14.20 Cocaine dependence, uncomplicated; F12.20 Cannabis dependence, uncomplicated; F17.210 Nicotine dependence, cigarettes, uncomplicated; F19.280 Other psychoactive substance dependence with psychoactive substance-induced anxiety disorder; F19.282 Other psychoactive substance dependence with psychoactive substance-induced sleep disorder; F19.24 Other psychoactive substance dependence with psychoactive substance-induced mood disorder; F51.05 Insomnia due to other mental disorder; J45.909 Unspecified asthma, uncomplicated; R01.1 Cardiac murmur, unspecified; B37.0 Candidal stomatitis; K80.20 Calculus of gallbladder without cholecystitis without obstruction; K76.89 Other specified diseases of liver; R76.11 Nonspecific reaction to tuberculin skin test without active tuberculosis
CPT/HCPCS: 36415; 81025; 87070; 87491; 87591; 87661; J0735; Q0162

== ENCOUNTER 2021-11-15 06:15 | Inpatient (IN) | payer OTHER ==
[2021-11-15] MEDS ORDERED: ONDANSETRON *ODT* 4 MG TABLET SL ONE (06:24)
[2021-11-15] MEDS ORDERED: ONDANSETRON *ODT* 4 MG TABLET ONE (06:25)
[2021-11-15] MEDS ORDERED: cloNIDine HCL 0.1 MG TABLET PO ONE (07:55)
[2021-11-15] MEDS ORDERED: SODIUM CHLORIDE 0.9% 500 ML INFUS.BAG IV ONE ×2 (07:56→12:11)
[2021-11-15] MEDS ORDERED: ONDANSETRON 4 MG/2 ML VIAL IVPUSH ONE ×2 (08:05→12:01)
[2021-11-15] MEDS ORDERED: ONDANSETRON 4 MG/2 ML VIAL ONE ×3 (08:32→19:54)
[2021-11-15 09:25] LABS: ALBUMIN 3.6 g/dl (3.4-5.0); BLOOD UREA NITROGEN 11.1 mg/dL (7-18); CALCIUM 9.6 mg/dL (8.5-10.1)
[2021-11-15 09:28] LABS: BASO % 0.2 % (0-2.0); EOS % 0.1 % (0-4.5); HEMATOCRIT 37.8 % (32.4-45.2); LYMPH % 6.7 % (8-40); MCHC 31.7 g/dl (32.0-36.0); MEAN CELL VOLUME 78.8 fl (80-96); MEAN PLT VOLUME 9.4 fl (7.5-11.1); MONO % 3.2 % (3.8-10.2); NEUT % 89.8 % (42.8-82.8); PLATELET COUNT 451 10^3/uL (134-434); RBC 4.79 M/mm3 (3.60-5.2); RDW 17.7 % (11.6-15.6)
[2021-11-15 09:30] LABS: BILIRUBIN,TOTAL 0.4 mg/dL (0.2-1)
[2021-11-15] MEDS ORDERED: cloNIDine HCL 0.1 MG TABLET ONE (09:35)
[2021-11-15] MEDS ORDERED: methaDONE HCL 10 MG TABLET (FOR DETOX USE ONLY) PO ONE (11:44)
[2021-11-15] MEDS ORDERED: methaDONE HCL 10 MG TABLET ONE (11:50)
[2021-11-15] MEDS ORDERED: methaDONE HCL 40 MG DISPERSABLE TABLET ONE (11:50)
[2021-11-15] MEDS ORDERED: PANTOPRAZOLE SODIUM 40 MG VIAL IVPUSH ONE (12:01)
[2021-11-15] MEDS ORDERED: morphine CARPU-JECT 4 MG/1 ML DISP.SYRIN IVPUSH ONE ×2 (12:01→22:15)
[2021-11-15] MEDS ORDERED: morphine SULFATE 4 MG/ML VIAL ONE ×2 (12:22→22:18)
[2021-11-15] MEDS ORDERED: PANTOPRAZOLE SODIUM 40 MG VIAL ONE (12:22)
[2021-11-15 13:18] LABS: EPI CELLS 24 /uL (0-25.1); HYALINE CASTS 1 /uL (0-3.1); PH,URINE >= 9.0 (5.0-8.0); URINE APPEARANCE CLEAR; URINE BACTERIA 92 /uL (0-1359); URINE BILIRUBIN NEGATIVE (NEGATIVE); URINE COLOR DK YELLOW; URINE GLUCOSE (UA) NEGATIVE (NEGATIVE); URINE KETONE 3+ (NEGATIVE); URINE LEUK ESTERASE NEGATIVE (NEGATIVE); URINE NITRITE NEGATIVE (NEGATIVE); URINE PROTEIN 1+ (NEGATIVE); URINE RBC 6 /uL (0-23.9); URINE WBC 5 /uL (0-25.8)
[2021-11-15] MEDS ORDERED: ALBUTEROL SO4 HFA INHALER IH PRN (15:05)
[2021-11-15] MEDS ORDERED: NICOTINE POLACRILEX 4 MG GUM BUC PRN (15:05)
[2021-11-15] MEDS ORDERED: ONDANSETRON 4 MG/2 ML VIAL IVPUSH PRN (15:14)
[2021-11-15] MEDS ORDERED: ACETAMINOPHEN 325 MG TABLET (FP) PO PRN (15:15)
[2021-11-15] MEDS ORDERED: BUPRENORPHINE/NALOXONE 12 MG-3 MG SL FILM PACKET SL SCH (22:00)
[2021-11-15] MEDS ORDERED: DICYCLOMINE HCL 20 MG/2 ML AMPUL IM ONE (22:16)
[2021-11-16] MEDS: DOCUSATE SODIUM 100 MG CAPSULE (FP) PO SCH ×3 (00:03→13:57)
[2021-11-16] MEDS: MIRTAZAPINE 15 MG TABLET (FP) PO SCH (00:03)
[2021-11-16] MEDS: BUPRENORPHINE/NALOXONE 1 EACH, BUPRENORPHINE/NALOXONE 2 EACH SL SCH ×2 (00:06→10:14)
[2021-11-16] MEDS: FLUTICASONE PROP 0.05% 16 GM NASAL SPRAY NS SCH ×2 (01:32→10:14)
[2021-11-16] MEDS: BUDESONIDE/FORMETEROL FUMARATE 80/4.5 mcg INHALER IH SCH ×2 (01:33→10:15)
[2021-11-16] MEDS ORDERED: DOCUSATE SODIUM 100 MG CAPSULE (FP) PO ONE ×2 (07:59→13:42)
[2021-11-16 08:41] LABS: HEMATOCRIT 37.1 % (32.4-45.2); HEMOGLOBIN 11.8 GM/dL (10.7-15.3); MCH 24.8 pg (25.7-33.7); MCHC 31.7 g/dl (32.0-36.0); MEAN CELL VOLUME 78.4 fl (80-96); MEAN PLT VOLUME 9.4 fl (7.5-11.1); PLATELET COUNT 424 10^3/uL (134-434); RBC 4.74 M/mm3 (3.60-5.2); RDW 17.8 % (11.6-15.6); WHITE BLOOD COUNT 10.4 K/mm3 (4.0-10.0)
[2021-11-16 09:13] LABS: CALCIUM 9.5 mg/dL (8.5-10.1)
[2021-11-16 09:14] LABS: BLOOD UREA NITROGEN 9.6 mg/dL (7-18)
[2021-11-16 09:17] LABS: CREATININE 0.9 mg/dL (0.55-1.3)
[2021-11-16] MEDS ORDERED: POLYETHYLENE GLYCOL (HEALTHYLAX) 3350 17 GM PACKET ONE (09:29)
[2021-11-16] MEDS ORDERED: NICOTINE 21 MG/24 HOURS TOPICAL PATCH ONE (09:29)
[2021-11-16] MEDS ORDERED: BUPRENORPHINE/NALOXONE 2 MG/0.5 MG FILM PACKET ONE (09:29)
[2021-11-16] MEDS ORDERED: ENOXAPARIN NA (PORCINE) 40 MG/0.4 ML DISP.SYRIN SQ ONE (09:29)
[2021-11-16] MEDS ORDERED: BUPRENORPHINE/NALOXONE 8 MG/2 MG FILM PACKET ONE (09:29)
[2021-11-16] MEDS: POLYETHYLENE GLYCOL (HEALTHYLAX) 3350 17 GM PACKET PO SCH (10:14)
[2021-11-16] MEDS: NICOTINE 21 MG/24 HOURS TOPICAL PATCH TD SCH (10:14)
[2021-11-16] MEDS: ENOXAPARIN NA (PORCINE) 40 MG/0.4 ML DISP.SYRIN SQ SCH (10:14)
[2021-11-16] MEDS ORDERED: methaDONE HCL 10 MG TABLET PO SCH (11:00)
[2021-11-16] MEDS ORDERED: methaDONE HCL 40 MG DISPERSABLE TABLET ONE (11:51)
[2021-11-16] MEDS ORDERED: PIPERACILLIN/TAZOB 3.375 GM 3.375 GM in DEXTROSE 5%-WATER - 50 ML IVPB ONE (13:00)
[2021-11-16] MEDS ORDERED: VANCOMYCIN/WATER 1,250 MG/250 ML BAG IVPB ONE (13:00)
[2021-11-16] MEDS ORDERED: VANCOMYCIN/WATER 1250 MG 1,250 MG/250 ML BAG IVPB ONE (13:49)
[2021-11-16] MEDS ORDERED: PIPERACILLIN/TAZOB 3.375 GM 3.375 GM/50 ML BAG IVPB ONE ×2 (14:09→18:49)
[2021-11-16] MEDS: PIPERACILLIN/TAZOB 3.375 GM 3.375 GM in DEXTROSE 5%-WATER - 50 ML IVPB SCH (18:56)
[2021-11-17] MEDS: IBUPROFEN 600 MG TABLET (FP) PO PRN ×3 (00:05→21:45)
[2021-11-17] MEDS: MIRTAZAPINE 15 MG TABLET (FP) PO SCH ×2 (00:06→21:46)
[2021-11-17] MEDS: DOCUSATE SODIUM 100 MG CAPSULE (FP) PO SCH ×4 (00:06→21:46)
[2021-11-17] MEDS ORDERED: PIPERACILLIN/TAZOBACTAM 3.375 GM VIAL IVPB ONE ×3 (00:34→17:18)
[2021-11-17] MEDS ORDERED: DEXTROSE 5%-WATER - 50 ML IVPB ONE ×3 (00:34→17:19)
[2021-11-17] MEDS: BUDESONIDE/FORMETEROL FUMARATE 80/4.5 mcg INHALER IH SCH ×3 (01:34→21:49)
[2021-11-17] MEDS: FLUTICASONE PROP 0.05% 16 GM NASAL SPRAY NS SCH ×3 (01:34→21:49)
[2021-11-17] MEDS: PIPERACILLIN/TAZOB 3.375 GM 3.375 GM in DEXTROSE 5%-WATER - 50 ML IVPB SCH ×3 (03:50→17:29)
[2021-11-17] MEDS: VANCOMYCIN/WATER 1250 MG 1,250 MG/250 ML BAG IVPB SCH ×2 (03:54→15:01)
[2021-11-17 06:01] VITALS: BMI 32.3
[2021-11-17] MEDS ORDERED: methaDONE HCL 40 MG DISPERSABLE TABLET ONE (06:55)
[2021-11-17] MEDS ORDERED: methaDONE HCL 10 MG TABLET ONE (06:55)
[2021-11-17] MEDS: NICOTINE 21 MG/24 HOURS TOPICAL PATCH TD SCH (10:57)
[2021-11-17] MEDS: ENOXAPARIN NA (PORCINE) 40 MG/0.4 ML DISP.SYRIN SQ SCH (10:57)
[2021-11-17] MEDS: POLYETHYLENE GLYCOL (HEALTHYLAX) 3350 17 GM PACKET PO SCH (11:02)
[2021-11-17 11:07] LABS: BASO % 0.8 % (0-2.0); EOS % 2.2 % (0-4.5); HEMATOCRIT 38.4 % (32.4-45.2); LYMPH % 42.9 % (8-40); MCH 24.7 pg (25.7-33.7); MCHC 31.3 g/dl (32.0-36.0); MEAN CELL VOLUME 78.8 fl (80-96); MEAN PLT VOLUME 9.1 fl (7.5-11.1); MONO % 9.8 % (3.8-10.2); NEUT % 44.3 % (42.8-82.8); PLATELET COUNT 381 10^3/uL (134-434); RBC 4.87 M/mm3 (3.60-5.2); RDW 17.5 % (11.6-15.6); WHITE BLOOD COUNT 4.8 K/mm3 (4.0-10.0)
[2021-11-17 11:51] LABS: BLOOD UREA NITROGEN 7.3 mg/dL (7-18)
[2021-11-17] MEDS: hydrOXYzine PAMOATE 50 MG CAPSULE (FP) PO PRN ×2 (15:21→23:03)
[2021-11-17] MEDS: cloNIDine HCL 0.1 MG TABLET PO PRN (17:29)
[2021-11-18] MEDS ORDERED: DEXTROSE 5%-WATER - 50 ML IVPB ONE ×3 (02:11→17:54)
[2021-11-18] MEDS ORDERED: PIPERACILLIN/TAZOBACTAM 3.375 GM VIAL IVPB ONE ×3 (02:11→17:54)
[2021-11-18] MEDS: PIPERACILLIN/TAZOB 3.375 GM 3.375 GM in DEXTROSE 5%-WATER - 50 ML IVPB SCH ×3 (02:27→17:58)
[2021-11-18] MEDS: VANCOMYCIN/WATER 1250 MG 1,250 MG/250 ML BAG IVPB SCH (02:29)
[2021-11-18] MEDS ORDERED: methaDONE HCL 10 MG TABLET ONE (06:00)
[2021-11-18] MEDS ORDERED: methaDONE HCL 40 MG DISPERSABLE TABLET ONE (06:00)
[2021-11-18] MEDS: DOCUSATE SODIUM 100 MG CAPSULE (FP) PO SCH ×3 (06:21→21:19)
[2021-11-18] MEDS: POLYETHYLENE GLYCOL (HEALTHYLAX) 3350 17 GM PACKET PO SCH (09:42)
[2021-11-18] MEDS: NICOTINE 21 MG/24 HOURS TOPICAL PATCH TD SCH (09:42)
[2021-11-18] MEDS: BUDESONIDE/FORMETEROL FUMARATE 80/4.5 mcg INHALER IH SCH ×2 (09:42→21:19)
[2021-11-18] MEDS: ENOXAPARIN NA (PORCINE) 40 MG/0.4 ML DISP.SYRIN SQ SCH (09:42)
[2021-11-18] MEDS: FLUTICASONE PROP 0.05% 16 GM NASAL SPRAY NS SCH ×2 (09:43→21:20)
[2021-11-18 12:19] LABS: BASO % 0.6 % (0-2.0); EOS % 4.4 % (0-4.5); HEMOGLOBIN 10.7 GM/dL (10.7-15.3); LYMPH % 29.3 % (8-40); MCH 25.2 pg (25.7-33.7); MCHC 32.3 g/dl (32.0-36.0); MEAN PLT VOLUME 8.8 fl (7.5-11.1); MONO % 13.6 % (3.8-10.2); NEUT % 52.1 % (42.8-82.8); PLATELET COUNT 308 10^3/uL (134-434); RBC 4.23 M/mm3 (3.60-5.2); WHITE BLOOD COUNT 4.1 K/mm3 (4.0-10.0)
[2021-11-18 13:08] LABS: CALCIUM 8.5 mg/dL (8.5-10.1)
[2021-11-18 13:09] LABS: BLOOD UREA NITROGEN 9.4 mg/dL (7-18)
[2021-11-18 13:12] LABS: CREATININE 0.8 mg/dL (0.55-1.3)
[2021-11-18] MEDS: IBUPROFEN 600 MG TABLET (FP) PO PRN (14:35)
[2021-11-18] MEDS: hydrOXYzine PAMOATE 50 MG CAPSULE (FP) PO PRN (14:35)
[2021-11-18] MEDS: cloNIDine HCL 0.1 MG TABLET PO PRN (21:19)
[2021-11-18] MEDS: MIRTAZAPINE 15 MG TABLET (FP) PO SCH (21:20)
[2021-11-19] MEDS ORDERED: PIPERACILLIN/TAZOBACTAM 3.375 GM VIAL IVPB ONE ×3 (01:47→18:58)
[2021-11-19] MEDS ORDERED: DEXTROSE 5%-WATER - 50 ML IVPB ONE ×3 (01:48→18:58)
[2021-11-19] MEDS: PIPERACILLIN/TAZOB 3.375 GM 3.375 GM in DEXTROSE 5%-WATER - 50 ML IVPB SCH ×3 (02:05→18:59)
[2021-11-19] MEDS ORDERED: methaDONE HCL 10 MG TABLET ONE (06:11)
[2021-11-19] MEDS ORDERED: methaDONE HCL 40 MG DISPERSABLE TABLET ONE (06:11)
[2021-11-19] MEDS: DOCUSATE SODIUM 100 MG CAPSULE (FP) PO SCH ×3 (06:21→22:27)
[2021-11-19] MEDS: IBUPROFEN 600 MG TABLET (FP) PO PRN ×2 (10:48→20:49)
[2021-11-19] MEDS: NICOTINE 21 MG/24 HOURS TOPICAL PATCH TD SCH (10:50)
[2021-11-19] MEDS: BUDESONIDE/FORMETEROL FUMARATE 80/4.5 mcg INHALER IH SCH ×2 (10:50→22:27)
[2021-11-19] MEDS: ENOXAPARIN NA (PORCINE) 40 MG/0.4 ML DISP.SYRIN SQ SCH (10:50)
[2021-11-19] MEDS: FLUTICASONE PROP 0.05% 16 GM NASAL SPRAY NS SCH ×2 (10:50→22:27)
[2021-11-19] MEDS: POLYETHYLENE GLYCOL (HEALTHYLAX) 3350 17 GM PACKET PO SCH (10:50)
[2021-11-19] MEDS: hydrOXYzine PAMOATE 50 MG CAPSULE (FP) PO PRN ×2 (13:27→19:02)
[2021-11-19] MEDS ORDERED: GLYCERIN 1 RECTAL SUPPOSITORY, ADULT RC ONE (15:30)
[2021-11-19] MEDS ORDERED: MELATONIN 5 MG TABLETS PO ONE (22:23)
[2021-11-19] MEDS: MIRTAZAPINE 15 MG TABLET (FP) PO SCH (22:27)
[2021-11-20] MEDS ORDERED: PIPERACILLIN/TAZOBACTAM 3.375 GM VIAL IVPB ONE ×3 (01:21→16:53)
[2021-11-20] MEDS ORDERED: DEXTROSE 5%-WATER - 50 ML IVPB ONE ×3 (01:21→16:53)
[2021-11-20] MEDS: PIPERACILLIN/TAZOB 3.375 GM 3.375 GM in DEXTROSE 5%-WATER - 50 ML IVPB SCH ×3 (02:01→17:11)
[2021-11-20] MEDS ORDERED: methaDONE HCL 40 MG DISPERSABLE TABLET ONE (06:06)
[2021-11-20] MEDS ORDERED: methaDONE HCL 10 MG TABLET ONE (06:06)
[2021-11-20] MEDS: DOCUSATE SODIUM 100 MG CAPSULE (FP) PO SCH ×3 (06:19→21:31)
[2021-11-20] MEDS: ENOXAPARIN NA (PORCINE) 40 MG/0.4 ML DISP.SYRIN SQ SCH (10:21)
[2021-11-20] MEDS: POLYETHYLENE GLYCOL (HEALTHYLAX) 3350 17 GM PACKET PO SCH (10:21)
[2021-11-20] MEDS: IBUPROFEN 600 MG TABLET (FP) PO PRN ×2 (10:22→17:12)
[2021-11-20] MEDS: NICOTINE 21 MG/24 HOURS TOPICAL PATCH TD SCH (10:22)
[2021-11-20] MEDS: FLUTICASONE PROP 0.05% 16 GM NASAL SPRAY NS SCH ×2 (10:24→21:32)
[2021-11-20] MEDS: BUDESONIDE/FORMETEROL FUMARATE 80/4.5 mcg INHALER IH SCH ×2 (10:25→21:32)
[2021-11-20] MEDS: hydrOXYzine PAMOATE 50 MG CAPSULE (FP) PO PRN ×3 (10:32→23:29)
[2021-11-20] MEDS: MIRTAZAPINE 15 MG TABLET (FP) PO SCH (21:31)
[2021-11-20] MEDS: DOXYCYCLINE HYCLATE 100 MG CAPSULE PO SCH (21:31)
[2021-11-21] MEDS ORDERED: PIPERACILLIN/TAZOBACTAM 3.375 GM VIAL IVPB ONE ×3 (01:03→17:26)
[2021-11-21] MEDS ORDERED: DEXTROSE 5%-WATER - 50 ML IVPB ONE ×3 (01:03→17:26)
[2021-11-21] MEDS: PIPERACILLIN/TAZOB 3.375 GM 3.375 GM in DEXTROSE 5%-WATER - 50 ML IVPB SCH ×3 (01:26→18:07)
[2021-11-21] MEDS ORDERED: methaDONE HCL 10 MG TABLET ONE (05:17)
[2021-11-21] MEDS ORDERED: methaDONE HCL 40 MG DISPERSABLE TABLET ONE (05:17)
[2021-11-21] MEDS: DOCUSATE SODIUM 100 MG CAPSULE (FP) PO SCH ×3 (06:01→21:53)
[2021-11-21] MEDS: POLYETHYLENE GLYCOL (HEALTHYLAX) 3350 17 GM PACKET PO SCH (09:27)
[2021-11-21] MEDS: NICOTINE 21 MG/24 HOURS TOPICAL PATCH TD SCH (09:27)
[2021-11-21] MEDS: ENOXAPARIN NA (PORCINE) 40 MG/0.4 ML DISP.SYRIN SQ SCH (09:27)
[2021-11-21] MEDS: DOXYCYCLINE HYCLATE 100 MG CAPSULE PO SCH ×2 (09:27→18:07)
[2021-11-21] MEDS: FLUTICASONE PROP 0.05% 16 GM NASAL SPRAY NS SCH ×2 (09:28→21:53)
[2021-11-21] MEDS: BUDESONIDE/FORMETEROL FUMARATE 80/4.5 mcg INHALER IH SCH ×2 (09:28→21:52)
[2021-11-21] MEDS: hydrOXYzine PAMOATE 50 MG CAPSULE (FP) PO PRN ×2 (10:44→18:05)
[2021-11-21] MEDS: IBUPROFEN 600 MG TABLET (FP) PO PRN (18:05)
[2021-11-21] MEDS: MIRTAZAPINE 15 MG TABLET (FP) PO SCH (21:53)
[2021-11-22] MEDS: hydrOXYzine PAMOATE 50 MG CAPSULE (FP) PO PRN ×4 (00:25→21:44)
[2021-11-22] MEDS ORDERED: DEXTROSE 5%-WATER - 50 ML IVPB ONE ×3 (01:22→21:23)
[2021-11-22] MEDS ORDERED: PIPERACILLIN/TAZOBACTAM 3.375 GM VIAL IVPB ONE ×3 (01:22→21:22)
[2021-11-22] MEDS: PIPERACILLIN/TAZOB 3.375 GM 3.375 GM in DEXTROSE 5%-WATER - 50 ML IVPB SCH ×4 (02:12→21:43)
[2021-11-22] MEDS ORDERED: methaDONE HCL 40 MG DISPERSABLE TABLET ONE (05:18)
[2021-11-22] MEDS ORDERED: methaDONE HCL 10 MG TABLET ONE (05:19)
[2021-11-22] MEDS: DOCUSATE SODIUM 100 MG CAPSULE (FP) PO SCH ×3 (06:22→21:44)
[2021-11-22 10:15] LABS: HEMATOCRIT 34.1 % (32.4-45.2); HEMOGLOBIN 10.9 GM/dL (10.7-15.3); MCH 25.2 pg (25.7-33.7); MCHC 32.1 g/dl (32.0-36.0); MEAN CELL VOLUME 78.5 fl (80-96); PLATELET COUNT 281 10^3/uL (134-434); RBC 4.34 M/mm3 (3.60-5.2); RDW 18.6 % (11.6-15.6); WHITE BLOOD COUNT 3.1 K/mm3 (4.0-10.0)
[2021-11-22 10:41] LABS: ALBUMIN 3.2 g/dl (3.4-5.0); CALCIUM 9.2 mg/dL (8.5-10.1)
[2021-11-22 10:42] LABS: BLOOD UREA NITROGEN 12.4 mg/dL (7-18)
[2021-11-22 10:44] LABS: CREATININE 0.8 mg/dL (0.55-1.3)
[2021-11-22 10:46] LABS: BILIRUBIN,TOTAL 0.2 mg/dL (0.2-1)
[2021-11-22] MEDS: IBUPROFEN 600 MG TABLET (FP) PO PRN ×2 (11:17→21:44)
[2021-11-22] MEDS: ENOXAPARIN NA (PORCINE) 40 MG/0.4 ML DISP.SYRIN SQ SCH (11:18)
[2021-11-22] MEDS: DOXYCYCLINE HYCLATE 100 MG CAPSULE PO SCH ×2 (11:18→17:26)
[2021-11-22] MEDS: POLYETHYLENE GLYCOL (HEALTHYLAX) 3350 17 GM PACKET PO SCH (11:19)
[2021-11-22] MEDS: FLUTICASONE PROP 0.05% 16 GM NASAL SPRAY NS SCH ×2 (11:19→21:43)
[2021-11-22] MEDS: NICOTINE 21 MG/24 HOURS TOPICAL PATCH TD SCH (11:19)
[2021-11-22] MEDS: BUDESONIDE/FORMETEROL FUMARATE 80/4.5 mcg INHALER IH SCH ×2 (11:19→21:42)
[2021-11-22 13:38] LABS: MAGNESIUM 2.2 mg/dL (1.8-2.4)
[2021-11-22 13:41] LABS: PHOSPHOROUS 4.6 mg/dL (2.5-4.9)
[2021-11-22] MEDS: MIRTAZAPINE 15 MG TABLET (FP) PO SCH (21:44)
[2021-11-23] MEDS ORDERED: PIPERACILLIN/TAZOBACTAM 3.375 GM VIAL IVPB ONE ×2 (01:26→09:27)
[2021-11-23] MEDS ORDERED: DEXTROSE 5%-WATER - 50 ML IVPB ONE ×2 (01:26→09:27)
[2021-11-23] MEDS: PIPERACILLIN/TAZOB 3.375 GM 3.375 GM in DEXTROSE 5%-WATER - 50 ML IVPB SCH ×2 (01:34→10:04)
[2021-11-23] MEDS ORDERED: methaDONE HCL 40 MG DISPERSABLE TABLET ONE (05:31)
[2021-11-23] MEDS ORDERED: methaDONE HCL 10 MG TABLET ONE (05:31)
[2021-11-23] MEDS: DOCUSATE SODIUM 100 MG CAPSULE (FP) PO SCH ×2 (06:26→16:16)
[2021-11-23 09:37] LABS: HEMATOCRIT 35.1 % (32.4-45.2); MCH 24.7 pg (25.7-33.7); MCHC 31.4 g/dl (32.0-36.0); MEAN CELL VOLUME 78.8 fl (80-96); MEAN PLT VOLUME 9.5 fl (7.5-11.1); PLATELET COUNT 294 10^3/uL (134-434); RBC 4.45 M/mm3 (3.60-5.2); RDW 18.8 % (11.6-15.6); WHITE BLOOD COUNT 3.9 K/mm3 (4.0-10.0)
[2021-11-23 09:53] LABS: ALBUMIN 3.2 g/dl (3.4-5.0); BLOOD UREA NITROGEN 18.1 mg/dL (7-18); CALCIUM 9.2 mg/dL (8.5-10.1)
[2021-11-23 09:56] LABS: CREATININE 0.9 mg/dL (0.55-1.3)
[2021-11-23 09:58] LABS: BILIRUBIN,TOTAL 0.2 mg/dL (0.2-1); TOT PROT 6.9 g/dl (6.4-8.2)
[2021-11-23] MEDS: hydrOXYzine PAMOATE 50 MG CAPSULE (FP) PO PRN ×2 (10:03→16:16)
[2021-11-23] MEDS: POLYETHYLENE GLYCOL (HEALTHYLAX) 3350 17 GM PACKET PO SCH (10:04)
[2021-11-23] MEDS: ENOXAPARIN NA (PORCINE) 40 MG/0.4 ML DISP.SYRIN SQ SCH (10:04)
[2021-11-23] MEDS: NICOTINE 21 MG/24 HOURS TOPICAL PATCH TD SCH (10:04)
[2021-11-23] MEDS: DOXYCYCLINE HYCLATE 100 MG CAPSULE PO SCH ×2 (10:04→17:47)
[2021-11-23] MEDS: BUDESONIDE/FORMETEROL FUMARATE 80/4.5 mcg INHALER IH SCH (10:05)
[2021-11-23] MEDS: FLUTICASONE PROP 0.05% 16 GM NASAL SPRAY NS SCH (10:05)
[2021-11-23 14:54] LABS: MAGNESIUM 2.3 mg/dL (1.8-2.4)
[2021-11-23 14:58] LABS: PHOSPHOROUS 5.2 mg/dL (2.5-4.9)
[2021-11-23 15:41] VITALS: BP 109/38; PULSE 85; RESP 19; TEMP 98.5
[2021-11-23] MEDS ORDERED: AMOX TR/POT CLAV 875MG/125MG TABLETS (FP) PO SCH (17:30)
== END 2021-11-23 19:04 | disposition home or self-care (01) | DRG 383 ==
LOC: JER 06:15 → JERBED 13:45 → OBSVTOIN 15:16 → J5S 11-16 23:45
PROVIDERS: ADMIT Internal Medicine; ATTEND Internal Medicine
DX: L02.414 Cutaneous abscess of left upper limb (principal); L02.413 Cutaneous abscess of right upper limb; F11.23 Opioid dependence with withdrawal; I35.1 Nonrheumatic aortic (valve) insufficiency; F17.200 Nicotine dependence, unspecified, uncomplicated; R11.2 Nausea with vomiting, unspecified; F39 Unspecified mood [affective] disorder; F10.10 Alcohol abuse, uncomplicated; F19.94 Other psychoactive substance use, unspecified with psychoactive substance-induced mood disorder; J45.909 Unspecified asthma, uncomplicated; F41.8 Other specified anxiety disorders; R19.7 Diarrhea, unspecified; L03.114 Cellulitis of left upper limb; K59.00 Constipation, unspecified; L03.113 Cellulitis of right upper limb; B95.7 Other staphylococcus as the cause of diseases classified elsewhere; Z59.00 Homelessness unspecified
CPT/HCPCS: 36415; 73201-TC-RT; 80048; 80053; 81003; 83690; 83735; 84100; 84484; 84703; 85025; 85027; 87040; 87070; 87086; 87205; 93005; 93010; 99285-25; C9803-CS; G0378; J0735; Q0162; U0003; U0005